=== PATIENT | male | born 1960 | race Caucasian/White ===

== ENCOUNTER 2025-04-14 07:46 | Inpatient (IN) | payer MEDICARE, SELFPAY ==
[2025-04-14] VITALS (10 sets, daily range): BP systolic 100–149; BP diastolic 53–90; PULSE 66–89; RESP 12–22; TEMP 36.4–37; O2SAT 92–98
--- NOTE | ~2025-04-14 | US_ITS ---
EXAMINATION: US renal BI DATE: 04/14/2025 16:11 INDICATION: Acute renal insufficiency TECHNIQUE: Multiple ultrasound grayscale images of the kidneys were obtained. COMPARISON: None. FINDINGS: The right kidney measures 13.3 x 5.8 x 6.1 cm. The left kidney measures 12.3 x 6.8 x 6.0 cm. The kidn eys demonstrate normal echogenicity. 2.2 cm anechoic cyst at the lower pole of the left kidney. There is no hydronephrosis in either kidney. No stones identified. The bladder is decompressed with a Fol ey catheter in place which limits evaluation. IMPRESSION: 1. 2.2 cm left renal cyst. Otherwise normal kidneys without hydronephrosis. Reviewed, dictated and finalized at location A.
--- NOTE | ~2025-04-14 | XR_ITS ---
EXAM/PROCEDURE: XR chest 2V - 04/14/2025 8:40 CDT HISTORY: 64 years old Male with weak, DIZZINESS, HX OF COPD AND HIGH BLOOD PRESSURE TECHNIQUE: Two view(s) of the chest. COMPARISON: None available. FINDINGS: LUNGS/ PLEURA: No pneumothorax or pleural effusion. Bibasilar linear opacities may represent atelecta sis and/or scarring. Superimposed infection cannot be excluded. HEART/ MEDIASTINUM: Heart appears normal in size. BONES: No acute osseous abnormality. OTHER: Visualized upper abdomen is unremarkable. IMPRESSION: Bibasilar linear opacities may represent atelectasis and/or scarring. Superimposed infection cannot b e excluded. Clinical correlation is recommended and short-term follow-up chest radiograph is recommen ded after appropriate medical therapy. Reviewed, dictated and finalized at location A. IMPRESSION: Bibasilar linear opacities may represent atelectasis and/or scarring. Superimpo sed infection cannot be excluded. Clinical correlation is recommended and short -term follow-up chest radiograph is recommended after appropriate medical thera py.
--- NOTE | 2025-04-14 07:51 | ECG_ITS ---
Test Date: 2025-04-14 08:00:17 Measurements Intervals [place] Rate: 70 P: 46 [place]: 181 QRS: 45 QRSD: 109 T: 43 QT: 369 QTc: 400 Interpretive Statements SINUS RHYTHM DELAYED PRECORDIAL R/S TRANSITION BASELINE ARTIFACT- I, III, AVR, AVL, AVF, V4 BORDERLINE ECG No previous ECG available for comparison Electronically Signed On 04-14-2025 08:05:04 CDT by Chilango Redd D.O.
--- NOTE | 2025-04-14 07:58 | PC.NURSE ---
voided 100mls and reported he could not void anymore, post void residual >1626
[2025-04-14 08:02] LABS: Basophils Absolute Auto 0.1 K/mm3 (0.0-0.1); Basophils Percent Auto 0.6 % (0.2-1.2); Eosinophils Absolute Auto 0.3 K/mm3 (0-0.3); Eosinophils Percent Auto 3.8 % (0-4.4); Hematocrit 41.2 % (42.0-52.0); Hemoglobin 12.6 g/dL (14.0-18.0); Immature Granulocyte Absolute 0.05 K/mm3 (0.00-0.031); Immature Granulocyte Percent A 0.6 % (0-0.5); Lymphocytes Absolute Auto 1.42 K/mm3 (0.9-3.2); Lymphocytes Percent Auto 16.5 % (18.3-44.2); Mean Corpuscular HGB Conc 30.6 g/dl (32-36); Mean Corpuscular Volume 81.9 fl (80-100); Mean Platelet Volume 9.5 fl (7.4-10.4); Monocytes Percent Auto 11.4 % (2.6-8.5); Neutrophils Absolute Auto 5.8 K/mm3 (1.3-6.7); Neutrophils Percent Auto 67.1 % (45.5-73.1); Platelet Count Result 265 k/mm3 (150-375); Red Blood Count 5.03 M/mm3 (4.6-6.20); Red Cell Distribution Width 15.4 % (11.5-14.5); White Blood Count 8.6 K/mm3 (4.5-10.0)
[2025-04-14 08:16] LABS: Alanine Aminotransferase 32 U/L (6-50); Albumin Level 4.2 g/dL (3.5-5.1); Alkaline Phosphatase 47 U/L (38-126); Anion Gap 13 mmol/L (4-12); Aspartate Amino Transferase 35 U/L (17-59); Bilirubin,Total 0.3 mg/dL (0.2-1.3); Blood Urea Nitrogen 43 mg/dL (9-20); Calcium 9.9 mg/dL (8.4-10.2); Carbon Dioxide 25 mmol/L (22-30); Chloride 98 mmol/L (98-107); Estimated CRCL calculation 56 ml/min; Estimated Glomerular Filt Rate 43; Glucose 190 mg/dL (65-110); Potassium 4.4 mmol/L (3.4-5.0); Sodium 136 mmol/L (137-145); Total Protein 8.3 g/dL (6.3-8.2)
[2025-04-14 08:17] LABS: Lactic Acid Reflex 1.7 mmol/L (0.7-2.0)
[2025-04-14 08:20] LABS: Add Urine Microscopic? YES; Appearance Urine Turbid (Clear); Bacteria Urine None Seen /hpf; Bilirubin Urine Negative (Negative); Blood Urine 2+ (Negative); Color Urine Yellow (Yellow); Glucose Urine UA 3+ mg/dL (Negative); Ketones Urine Negative (Negative); Leukocyte Esterase Ur 3+ LEU/UL (Negative); Need Manual Microscopic Reviewed; Nitrate Urine Negative (Negative); Non Pathogenic Casts 0-2; Protein Urine Trace mg/dL (Negative); RBC Urine 21-50 /hpf (0-2); Squamous Epithelial Cell Urine Occasional /hpf (Few); Urobilinogen Urine 0.2 mg/dL (<2.0); WBC Clumps Urine Present /HPF; WBC Urine >100 /hpf (0-3); pH Urine 5.5 (5.0-9.0)
[2025-04-14] MEDS: MECLIZINE HCL 25 MG TABLET PO (10:13)
[2025-04-14] MEDS: SODIUM CHLORIDE 0.9% IV 1,000 ML 999 ML IV CONT (10:13)
--- NOTE | 2025-04-14 11:18 | ED.WEAKNESS ---
HPI - Weakness General Chief complaint: Weakness Stated complaint: gen. weak, dizzy Time Seen by Provider: 04/14/25 07:46 History of Present Illness HPI Narrative: Patient is a 64-year-old male who presents ER dizziness weakness. Unable get a bed today due to dizziness. Reports he has been camping outside over last 2 days. No fevers chills or sweats. No chest pain or chest pressure. No weakness in arm or leg. Patient was unable to urinate here and then was found have 1600 mL of urine in his bladder on bladder scan. Related Data Home Medications ?Medication ?Instructions ?Recorded ?Confirmed ?Last Taken ?Type albuterol sulfate 90 mcg/actuation 2 puff inhalation Q4H PRN 04/14/25 04/14/25 Unknown History aerosol inhaler shortness of breath or wheezing cholecalciferol (vitamin D3) 50 2,000 unit PO DAILY 04/14/25 04/14/25 Unknown History mcg (2,000 unit) tablet (Vitamin D3) dapagliflozin propanediol 10 mg 10 mg PO DAILY 04/14/25 04/14/25 Unknown History tablet (Farxiga) diclofenac sodium 75 mg 75 mg PO Q12H 04/14/25 04/14/25 Unknown History tablet,delayed release empagliflozin 25 mg tablet 25 mg PO DAILY 04/14/25 04/14/25 Unknown History (Jardiance) fenofibrate micronized 134 mg 134 mg PO DAILY 04/14/25 04/14/25 Unknown History capsule glipizide 5 mg tablet, extended 5 mg PO DAILY 04/14/25 04/14/25 Unknown History release 24 hr hydrochlorothiazide 25 mg tablet 25 mg PO DAILY 04/14/25 04/14/25 Unknown History insulin degludec 200 unit/mL (3 200 unit subcut DAILY 04/14/25 04/14/25 Unknown History mL) subcutaneous pen (Tresiba FlexTouch U-200 insulin) insulin lispro 100 unit/mL 70 unit subcut 1700 04/14/25 04/14/25 Unknown History subcutaneous pen insulin lispro 100 unit/mL 65 unit subcut 0800,1200 04/14/25 04/14/25 Unknown History subcutaneous pen (Humalog KwikPen (U-100) Insulin) lisinopril 40 mg tablet 40 mg PO DAILY 04/14/25 04/14/25 Unknown History magnesium 250 mg tablet 250 mg PO DAILY 04/14/25 04/14/25 Unknown History mometasone-formoterol HFA 100 2 puff inhalation Q12H 04/14/25 04/14/25 Unknown History mcg-5 mcg/actuation aerosol inhaler (Dulera) omega-3 acid ethyl esters 1 gram 2 cap PO BID 04/14/25 04/14/25 Unknown History capsule ropinirole 1 mg tablet 1 mg PO DAILY 04/14/25 04/14/25 Unknown History ropinirole 2 mg tablet 2 mg PO HS 04/14/25 04/14/25 Unknown History semaglutide 0.25 mg or 0.5 mg (2 0.5 mg subcut WEEKLY 04/14/25 04/14/25 Unknown History mg/3 mL) subcutaneous pen injector (Ozempic) simvastatin 40 mg tablet 40 mg PO DAILY 04/14/25 04/14/25 Unknown History Allergies Allergy/AdvReac Type Severity Reaction Status Date / Time No Known Allergies Allergy Verified 04/14/25 07:53 Review of Systems Review of Systems: All systems reviewed & are unremarkable except as noted in HPI and below Constitutional: Constitutional: Reports no additional constitutional complaints ENT: Reports system reviewed and no additional complaints, except as documented Cardiovascular: Cardiovascular: Reports no additional cardiovascular complaints Respiratory: Respiratory: Reports no additional respiratory complaints Gastrointestinal: Gastrointestinal: Reports no additional gastrointestinal complaints Genitourinary: Genitourinary: Reports no additional male genitourinary complaints [facility] Past Medical History Medical History (Updated 04/14/25 @ 19:07 by Magdiel Harrington MD) Sleep apnea COPD (chronic obstructive pulmonary disease) Hypertension Diabetes Social History Social History Smoking packs per day: 2 Smoking cigarettes per day: 40.0 Years smoked: 20 Smoking pack-years: 40.00 Smoking status: Former smoker Alcohol intake: never Substance use: never Do You Feel Safe in your Home?: Yes Lack of Transportation: No Lack of Food: Never True Current Housing: I Have Housing Concerned About Future Housing: No Difficulty Paying Gas/Electric Bills: No Difficulty Paying for Meds: No Currently Unemployed: No Education: High School Diploma/GED Difficulty w/ Childcare or Family Care: No Spiritual care concerns: No Exam Narrative: GENERAL: Well-appearing, well-nourished, and in no acute distress. HEAD: Normocephalic, atraumatic. EYES: PERRL and EOMI. ENT: Mucous membranes moist. CHEST: Clear to auscultation. No respiratory distress. HEART: Regular rate and rhythm. Normal peripheral pulses. ABDOMEN: Soft, nontender, nondistended. EXTREMITIES: Normal range of motion. No edema. SKIN: Warm, dry, no rash. NEURO: Alert and oriented x3. PSYCH: Normal mood and affect. Course Course Emergency Course: Patient still dizzy with fluids. Admit to hospitalist service. IV antibiotics for UTI. Meclizine for dizziness. Vital Signs Vital signs: Vital Signs Temperature 97.6 F 04/14/25 07:42 Pulse Rate 79 04/14/25 07:42 Respiratory Rate 17 04/14/25 07:42 Blood Pressure 149/90 H 04/14/25 07:42 Pulse Oximetry 95 04/14/25 07:42 Oxygen Delivery Room Air 04/14/25 07:42 Temperature 97.7 F 04/14/25 13:55 Pulse Rate 78 04/14/25 13:55 Respiratory Rate 20 04/14/25 13:55 Blood Pressure 111/65 04/14/25 13:55 Pulse Oximetry 94 04/14/25 13:55 Oxygen Delivery Room Air 04/14/25 07:42 MDM - Weakness Lab Data 04/14/25 07:55 04/14/25 07:55 Labs: Lab Results 04/14/25 Range/Units 07:55 WBC 8.6 (4.5-10.0) K/mm3 RBC 5.03 (4.6-6.20) M/mm3 Hgb 12.6 L (14.0-18.0) g/dL Hct 41.2 L (42.0-52.0) % MCV 81.9 (80-100) fl MCH 25.0 L (26-34) pg MCHC 30.6 L (32-36) g/dl RDW 15.4 H (11.5-14.5) % Plt Count 265 (150-375) k/mm3 MPV 9.5 (7.4-10.4) fl Immature Gran % (Auto) 0.6 H (0-0.5) % Neut % (Auto) 67.1 (45.5-73.1) % Lymph % (Auto) 16.5 L (18.3-44.2) % Sullivan % (Auto) 11.4 H (2.6-8.5) % Eos % (Auto) 3.8 (0-4.4) % Baso % (Auto) 0.6 (0.2-1.2) % Lymph # (Auto) 1.42 (0.9-3.2) K/mm3 Sullivan # (Auto) 1.0 H (0.1-0.6) K/mm3 Eos # (Auto) 0.3 (0-0.3) K/mm3 Baso # (Auto) 0.1 (0.0-0.1) K/mm3 Abs Immat Gran (auto) 0.05 H (0.00-0.031) K/mm3 Absolute Neuts (auto) 5.8 (1.3-6.7) K/mm3 Absolute Nucleated RBC 0.000 (0.0-0.012) K/mm3 Nucleated RBC % 0.0 (0.0-0.2) % Sodium 136 L (137-145) mmol/L Potassium 4.4 (3.4-5.0) mmol/L Chloride 98 (98-107) mmol/L Carbon Dioxide 25 (22-30) mmol/L Anion Gap 13 H (4-12) mmol/L BUN 43 H (9-20) mg/dL Creatinine 1.63 H (0.7-1.3) mg/dL Estim Creat Clear Calc 56 ml/min Estimated GFR 43 L (59 - ) Glucose 190 H (65-110) mg/dL Lactic Acid 1.7 (0.7-2.0) mmol/L Calcium 9.9 (8.4-10.2) mg/dL Total Bilirubin 0.3 (0.2-1.3) mg/dL AST 35 (17-59) U/L ALT 32 (6-50) U/L Alkaline Phosphatase 47 (38-126) U/L Total Creatine Kinase 500 H (55-170) U/L Total Protein 8.3 H (6.3-8.2) g/dL Albumin 4.2 (3.5-5.1) g/dL Urine Color Yellow (Yellow) Urine Appearance Turbid H (Clear) Urine pH 5.5 (5.0-9.0) Ur Specific [place] 1.020 (1.001-1.035) Urine Protein Trace (Negative) mg/dL Urine Glucose (UA) 3+ H (Negative) mg/dL Urine Ketones Negative (Negative) mg/dL Ur Blood (Man) 2+ H (Negative) Urine Nitrate Negative (Negative) Urine Bilirubin Negative (Negative) Urine Urobilinogen 0.2 (<2.0) mg/dL Add Ur Microanalysis Reviewed Leukocyte Esterase Rfl 3+ H (Negative) CATHIE/UL Urine RBC 21-50 H (0-2) /hpf Urine WBC >100 H (0-3) /hpf Urine WBC Clumps Present H (None) /HPF Ur Squamous Epith Cells Occasional (Few) /hpf Urine Bacteria None seen /hpf Urine Casts 0-2 Discharge Plan Discharge Clinical Impression: Dizziness UTI (urinary tract infection) Qualifiers: Urinary tract infection type: acute cystitis Hematuria presence: without hematuria Qualified Code(s): N30.00 - Acute cystitis without hematuria Patient Disposition: Still a Patient Condition: Stable
[2025-04-14] MEDS: SODIUM CHLORIDE 0.9% IV 1,000 ML 125 ML IV CONT (11:23)
--- NOTE | 2025-04-14 12:20 | PM.IMHP ---
H&P: HPI History of Present Illness Date/Time: 04/14/25 12:20 Chief Complaint: Weakness, Dizziness Narrative: 64 y/o M with PMH of COPD, sleep apnea, hypertension (not on medications?), and diabetes presents here with generalized weakness and dizziness. The patient presents here from home via EMS on 04/14 for further evaluation of generalized weakness and dizziness. He reports onset this morning when he woke up to go use the restroom. He reports due to the generalized weakness he was unable to stand this morning to get to the bathroom. He denies accompanying chest pain, shortness of breath, cough, palpitations, fatigue, dysuria,fever, chills, body aches. Does report urinary frequency - but reports he drinks a lot of fluids. Patient was found to have acute urinary retention during his evaluation in the Emergency Department. Patient had molina placed, dizziness improved but the weakness is still present. He denies focal weakness, focal numbness, changes in vision, or changes in speech. Patient reports he just got back from camping - denies any tick bites but was out in the heat a lot. Initial VS at presentation: 97.6? F, HR 79, RR 17, 149/90, and 95% on RA. ED workup showed: No leukocytosis, hemoglobin 12.6, sodium 136, creatinine 1.63 and GFR 43 (no previous available for comparison), glucose 190, and UA suspicious for UTI. CXR showed bibasilar linear opacities which may represent atelectasis and/or scarring, superimposed infection cannot be excluded. EKG showed sinus rhythm, rate 70, delayed precordial R/S transition, no previous available for comparison. Review of Systems Review of Systems: All systems reviewed & are unremarkable except as noted in HPI and below [facility] Past Medical History Medical History (Updated 04/14/25 @ 14:57 by Traci Kennedy APRN) Sleep apnea COPD (chronic obstructive pulmonary disease) Hypertension Diabetes Social History Social History Smoking packs per day: 2 Smoking cigarettes per day: 40.0 Years smoked: 20 Smoking pack-years: 40.00 Smoking status: Former smoker Alcohol intake: never Substance use: never Do You Feel Safe in your Home?: Yes Lack of Transportation: No Lack of Food: Never True Current Housing: I Have Housing Concerned About Future Housing: No Difficulty Paying Gas/Electric Bills: No Difficulty Paying for Meds: No Currently Unemployed: No Education: High School Diploma/GED Difficulty w/ Childcare or Family Care: No Spiritual care concerns: No Meds Home Medications and Allergies Home Medications ?Medication ?Instructions ?Recorded ?Confirmed ?Type insulin lispro 100 unit/mL 70 unit subcut 1700 04/14/25 04/14/25 History subcutaneous pen insulin lispro 100 unit/mL 65 unit subcut 0800,1200 04/14/25 04/14/25 History subcutaneous pen (Humalog KwikPen (U-100) Insulin) Allergies Allergy/AdvReac Type Severity Reaction Status Date / Time No Known Allergies Allergy Verified 04/14/25 07:53 Vital Signs Vital Signs - 24 hr 04/14/25 07:42 04/14/25 08:01 04/14/25 08:02 Temperature 97.6 F Pulse Rate 79 76 Respiratory Rate 17 Blood Pressure 149/90 H 119/72 Pulse Oximetry 95 Oxygen Delivery Room Air 04/14/25 08:03 04/14/25 10:13 04/14/25 11:18 Temperature Pulse Rate 75 68 66 Respiratory Rate 12 15 Blood Pressure 129/68 100/62 114/53 L Pulse Oximetry 95 96 Oxygen Delivery Exam Const: General: comfortable and no acute distress Other: , male, nontoxic appearance HENMT: Face/Nose/Sinus: Normal nares present Mouth: Yes moist mucous membranes Eyes: General: appearance normal, both eyes and all related structures Sclera: sclerae normal Pupils: Equal, round and reactive pupils present EOM: EOMs intact bilaterally Resp: Effort & Inspection: normal respiratory effort Auscultation: clear to auscultation bilaterally Cardio: Rate: regular rate Rhythm: regular rhythm Other: No heart GI: Other: Abdomen rounded, tight but soft, nontender. Normoactive bowel sounds in all quadrants. Urinary Catheter: Urinary Catheter: patent and draining Skin: General skin exam: normal color and no rashes or lesions noted Wounds: no wounds Neuro: Speech: normal speech Motor exam (neuro): 5/5 motor strength present throughout Sensory Exam: normal sensation Other: A&O x4 Extrem: General: normal to inspection Psych: Mental Status: mental status grossly normal Affect: normal affect Other: Good insight and judgment, pleasant H&P: Results Labs Labs: Short CBC 04/14/25 Range/Units 07:55 WBC 8.6 (4.5-10.0) K/mm3 Hgb 12.6 L (14.0-18.0) g/dL Hct 41.2 L (42.0-52.0) % Plt Count 265 (150-375) k/mm3 BMP 04/14/25 07:55 Sodium 136 L Potassium 4.4 Chloride 98 Carbon Dioxide 25 BUN 43 H Creatinine 1.63 H Glucose 190 H Calcium 9.9 Liver Function 04/14/25 Range/Units 07:55 Total Bilirubin 0.3 (0.2-1.3) mg/dL AST 35 (17-59) U/L ALT 32 (6-50) U/L Alkaline Phosphatase 47 (38-126) U/L Albumin 4.2 (3.5-5.1) g/dL Urine 04/14/25 Range/Units 07:55 Urine Color Yellow (Yellow) Urine Appearance Turbid H (Clear) Urine pH 5.5 (5.0-9.0) Ur Specific [place] 1.020 (1.001-1.035) Urine Protein Trace (Negative) mg/dL Urine Glucose (UA) 3+ H (Negative) mg/dL Assessment and Plan Assessment and plan (1) MARIA D (acute kidney injury): Code(s): N17.9 - Acute kidney failure, unspecified Status: Acute Assessment and Plan: - creatinine 1.63, BUN 43, GFR 43. No previous available. - check renal ultrasound - check CK, urine sodium, protein/creatinine, urea - IV fluids: 1L bolus -> 125 mL/hour - monitor I&Os - trend renal function - trend electrolytes, correct as needed Unclear if patient's baseline or acute kidney injury as there are no previous lab work available for comparison. possible UTI component, see below. Urinary retention noted in the ED > post-void residual 1626, likely contributing. Will rehydrate over the next 24 hours, start antibiotics, and check basic workup. If no improvement or worsening renal function, consider Nephrology consultation. (2) Urinary retention: Code(s): R33.9 - Retention of urine, unspecified Status: Acute Assessment and Plan: - patient able to void 100 mL in the ED, postvoid residual checked and showed greater than 1626 - Molina subsequently placed with 1L out - start Flomax (3) UTI (urinary tract infection): Qualifiers: Hematuria presence: without hematuria Urinary tract infection type: acute cystitis Qualified Code(s): N30.00 - Acute cystitis without hematuria Code(s): N39.0 - Urinary tract infection, site not specified Status: Acute Assessment and Plan: - UA: Turbid, 3+ glucose, 2+ blood, 3+ leuks, 21-50 RBC, greater than 100 WBC, WBC clumps present, occasional epithelial cells, no bacteria - UC pending - previous micro reviewed, none available - started on Ceftriaxone on 04/14 (4) Diabetes: Qualifiers: Diabetes mellitus complication status: without complication Diabetes mellitus skilled nursing insulin use: without skilled nursing use Diabetes mellitus type: type 2 Qualified Code(s): E11.9 - Type 2 diabetes mellitus without complications Code(s): E11.9 - Type 2 diabetes mellitus without complications Status: Chronic Assessment and Plan: - hypoglycemia protocol - POC blood glucose ACHS - home medication: Continue lispro 65 units subQ at 8/12, lispro 70 units at 5 - correct regimen ordered - high dose TIDWM, based off BMI - A1C ordered, no previous on file Plan Diet: Diabetic GI Prophylaxis: Not currently indicated DVT Prophylaxis: SCDs IV fluids: 1 L bolus -> 125 mL/hour Lines/Tubes: Peripheral IV, Molina Code Status: Full code Quality VTE Prophylaxis VTE prophylaxis: mechanical ordered Hospitalist [facility] Advance Care Plan I have confirmed that the patient's Advanced Care Plan is present, code status is documented, or surrogate decision maker is listed in patient medical record.: Yes Medication Reconciliation I have utilized all available resources to obtain, update and review the patients current medications (includes all prescriptions, OTC, herbals, cannabis, and nutritional supplements).: Yes
--- NOTE | 2025-04-14 13:09 | ADMGEN ---
This patient, Len Botello, was admitted to 3 [facility] Surg Room 330-02. Patient/family oriented to hospital policies and general routines including ID bracelet, bed and alarms, visiting hours, pain management, procedures, bathroom and other care routines, personal items, smoking policy, room service/diet, and visiting hours. Information on how to activate the Rapid Response Team has been discussed. Patient/Family are encouraged to report perceived risks to care and to ask questions if they do not understand what they are told or what they should do.
[2025-04-14 13:53] LABS: Creatine Kinase 500 U/L (55-170)
[2025-04-14] MEDS: TAMSULOSIN HCL 0.4 MG CAPSULE PO (14:22)
[2025-04-14 15:25] LABS: Creatinine Urine 41.2 mg/dL; Sodium Urine Random 99 meq/L; Total Protein Urine Random 22 mg/dL; Ur Ttl Prot Creatinine Ratio 0.53 mg/mg (0-0.20); Urea Random Urine 481 MG/DL
[2025-04-14 17:04] LABS: Glucose Point of Care 121 mg/dl (65-105)
[2025-04-14 17:06] LABS: Glucose Point of Care 120 mg/dl (65-105)
--- NOTE | 2025-04-14 17:14 | PC.NURSE ---
Patient refused to take 70 units of novolog stating I only take that if my sugar is over 160. Notified the provider Traci and she said okay to hold.
[2025-04-14 20:43] LABS: Glucose Point of Care 186 mg/dl (65-105)
[2025-04-14] MEDS: rOPINIRole HCL 1 MG TABLET 2 MG PO (23:05)
[2025-04-15] VITALS (8 sets, daily range): BP systolic 100–116; BP diastolic 57–66; PULSE 75–81; RESP 18–20; TEMP 36.2–36.6; O2SAT 93–94
[2025-04-15] MEDS: SODIUM CHLORIDE 0.9% IV 1,000 ML 125 ML IV CONT ×2 (01:42→10:33)
[2025-04-15 07:04] LABS: Basophils Percent Auto 0.4 % (0.2-1.2); Eosinophils Absolute Auto 0.2 K/mm3 (0-0.3); Eosinophils Percent Auto 2.7 % (0-4.4); Hematocrit 37.8 % (42.0-52.0); Hemoglobin 11.5 g/dL (14.0-18.0); Immature Granulocyte Absolute 0.03 K/mm3 (0.00-0.031); Immature Granulocyte Percent A 0.3 % (0-0.5); Lymphocytes Absolute Auto 1.59 K/mm3 (0.9-3.2); Lymphocytes Percent Auto 17.7 % (18.3-44.2); Mean Corpuscular HGB Conc 30.4 g/dl (32-36); Mean Corpuscular Volume 82.2 fl (80-100); Mean Platelet Volume 9.6 fl (7.4-10.4); Monocytes Absolute Auto 0.9 K/mm3 (0.1-0.6); Monocytes Percent Auto 9.9 % (2.6-8.5); Neutrophils Absolute Auto 6.2 K/mm3 (1.3-6.7); Platelet Count Result 265 k/mm3 (150-375); Red Cell Distribution Width 15.6 % (11.5-14.5)
[2025-04-15 07:21] LABS: Alanine Aminotransferase 29 U/L (6-50); Albumin Level 3.8 g/dL (3.5-5.1); Alkaline Phosphatase 41 U/L (38-126); Anion Gap 10 mmol/L (4-12); Aspartate Amino Transferase 33 U/L (17-59); Bilirubin,Total 0.3 mg/dL (0.2-1.3); Blood Urea Nitrogen 32 mg/dL (9-20); Calcium 9.5 mg/dL (8.4-10.2); Carbon Dioxide 21 mmol/L (22-30); Chloride 105 mmol/L (98-107); Estimated CRCL calculation 71 ml/min; Estimated Glomerular Filt Rate 57; Glucose 166 mg/dL (65-110); Potassium 4.4 mmol/L (3.4-5.0); Sodium 136 mmol/L (137-145); Total Protein 7.4 g/dL (6.3-8.2)
[2025-04-15 07:31] LABS: Hemoglobin A1C 8.5 % (<5.7)
[2025-04-15 07:38] LABS: Glucose Point of Care 169 mg/dl (65-105)
[2025-04-15] MEDS: FLUTICASONE/SALMETEROL 115-21 MCG INHALER 1 PUFF 2 PUFF INHALATION ×2 (08:14→21:12)
[2025-04-15] MEDS: CHOLECALCIFEROL (VITAMIN D3) 125 MCG (5,000 UNITS) TABLET PO (08:39)
[2025-04-15] MEDS: lisinopriL 20 MG TABLET 40 MG PO (08:40)
[2025-04-15] MEDS: EMPAGLIFLOZIN 25 MG TABLET PO (08:40)
[2025-04-15] MEDS: FENOFIBRATE NANOCRYSTALLIZED 145 MG TABLET PO (08:40)
[2025-04-15] MEDS: OMEGA 3 POLYUNSAT FATTY ACIDS 1 GM CAP PO ×2 (08:40→17:13)
[2025-04-15] MEDS: rOPINIRole HCL 1 MG TABLET PO (08:40)
[2025-04-15] MEDS: hydroCHLOROthiazide 25 MG TABLET PO (08:40)
[2025-04-15] MEDS: MAGNESIUM OXIDE 200 MG TABLET PO (08:40)
[2025-04-15] MEDS: DICLOFENAC SOD 75 MG TABLET.EC PO ×2 (08:40→21:08)
[2025-04-15] MEDS: TAMSULOSIN HCL 0.4 MG CAPSULE PO (08:41)
[2025-04-15] MEDS: SIMVASTATIN 20 MG TABLET 40 MG PO (08:41)
[2025-04-15] MEDS: INSULIN ASPART (*BKC) 100 UNITS/ML 65 UNITS SUB-Q (08:46)
[2025-04-15] MEDS: glipiZIDE XL 5 MG TABCR PO (08:53)
[2025-04-15] MEDS: INSULIN GLARGINE (*BKC) 100 UNITS/ML SUB-Q ×2 (09:24→21:24)
[2025-04-15 11:55] LABS: Glucose Point of Care 88 mg/dl (65-105)
--- NOTE | 2025-04-15 14:01 | P.PNIM_ITS ---
Progress Note: A&P Assessment and Plan (1) BAUTISTA (acute kidney injury): Code(s): N17.9 - Acute kidney failure, unspecified Status: Acute Assessment and Plan: - watch BMP and Uo - creat is improved since catheter insertion and iv abx started (2) Urinary retention: Code(s): R33.9 - Retention of urine, unspecified Status: Acute Assessment and Plan: - sp molina cath - start Flomax - consult urology (3) UTI (urinary tract infection): Qualifiers: Urinary tract infection type: acute cystitis Hematuria presence: without hematuria Qualified Code(s): N30.00 - Acute cystitis without hematuria Code(s): N39.0 - Urinary tract infection, site not specified Status: Acute Assessment and Plan: - uc ordered await results - started on Ceftriaxone on 04/14 (4) Diabetes: Qualifiers: Diabetes mellitus type: type 2 Diabetes mellitus assisted insulin use: without assisted use Diabetes mellitus complication status: without complication Qualified Code(s): E11.9 - Type 2 diabetes mellitus without complications Code(s): E11.9 - Type 2 diabetes mellitus without complications Status: Chronic Assessment and Plan: - watch sugars - accuchecks, ssi Plan diet ; DM Code Status: Full code Subjective Date/time seen: 04/15/25 14:01 Interval history: 64 y/o M with PMH of COPD, sleep apnea, hypertension (not on medications?), and diabetes presents here with generalized weakness and dizziness. The patient presents here from home via EMS on 04/14 for further evaluation of generalized weakness and dizziness. He reports onset this morning when he woke up to go use the restroom. He reports due to the generalized weakness he was unable to stand this morning to get to the bathroom. He denies accompanying chest pain, shortness of breath, cough, palpitations, fatigue, dysuria,fever, chills, body aches. Does report urinary frequency - but reports he drinks a lot of fluids. Patient was found to have acute urinary retention during his evaluation in the Emergency Department. pt admitted for Bautista, urinary retention uti with history of dm sp molina cath insertion Review of Systems Review of Systems: pt feels better Exam Const: General: comfortable and no acute distress Other: , male, nontoxic appearance HENMT: Face/Nose/Sinus: Normal nares present Mouth: Yes moist mucous membranes Eyes: General: appearance normal, both eyes and all related structures Sclera: sclerae normal Pupils: Equal, round and reactive pupils present EOM: EOMs intact bilaterally Resp: Effort & Inspection: normal respiratory effort Auscultation: clear to auscultation bilaterally Cardio: Rate: regular rate Rhythm: regular rhythm Other: No heart GI: Other: Abdomen rounded, tight but soft, nontender. Normoactive bowel sounds in all quadrants. Urinary Catheter: Urinary Catheter: patent and draining Skin: General skin exam: normal color and no rashes or lesions noted Wounds: no wounds Neuro: Cranial nerves: Yes Equal, round and reactive pupils present Speech: normal speech Motor exam (neuro): 5/5 motor strength present throughout Se nsory Exam: normal sensation Other: A&O x4 Extrem: General: normal to inspection Psych: Mental Status: mental status grossly normal Affect: normal affect Other: Good insight and judgment, pleasant Objective Data Vital Signs Vital Signs: Vital Signs - 24 hr 04/14/25 21:26 04/14/25 23:00 04/15/25 02:21 Temperature 37.0 C Pulse Rate 77 81 Respiratory Rate 18 22 H 20 Blood Pressure 128/66 Pulse Oximetry 92 92 93 Oxygen Delivery Autopap CPAP 04/15/25 05:23 04/15/25 08:00 04/15/25 08:15 Temperature 36.6 C Pulse Rate 76 Respiratory Rate 20 Blood Pressure 104/60 Pulse Oximetry 93 93 Oxygen Delivery Room Air Room Air 04/15/25 08:38 Temperature Pulse Rate 77 Respiratory Rate Blood Pressure 116/66 Pulse Oximetry Oxygen Delivery Intake/Output Intake/Output: Intake & Output 04/12/25 04/13/25 04/14/25 04/15/25 23:59 23:59 23:59 23:59 Intake Total 3080 2244 Output Total 4300 4100 Balance -1221 -1007 Meds/Results Medications: Active Medications Generic Name Dose Route Start Last Admin Trade Name Freq PRN Reason Stop Dose Admin Acetaminophen 650 mg 04/14/25 11:11 Acetaminophen 325 Mg Tablet PO Q4H PRN Mild Pain (1-3) or Fever Hydrocodone Bitart/Acetaminophen 1 tab 04/14/25 11:11 Hydrocodone/Acetaminophen (*Crx) 5-325 Mg Tablet PO Q4H PRN Pain Rated 4-6 Albuterol 2 puff 04/14/25 22:23 Albuterol Sulfate (*Sp) Aerosol 1 Puff INHALATION Q4H PRN shortness of breath or wheezing Dextrose 12.5 gm 04/14/25 12:38 Dextrose 50% 25 Gm/50 Ml Syringe IV PUSH PRN PRN Hypoglycemia Protocol Diclofenac Sodium 75 mg 04/15/25 09:00 04/15/25 08:40 Diclofenac Sod 75 Mg Tablet.Ec PO 75 mg Q12HR NATASHA Administration Empagliflozin 25 mg 04/15/25 09:00 04/15/25 08:40 Empagliflozin 25 Mg Tablet PO 25 mg DAILY NATASHA Administration Fenofibrate 145 mg 04/15/25 09:00 04/15/25 08:40 Fenofibrate Nanocrystallized 145 Mg Tablet PO 145 mg QAM NATASHA Administration Fish Oil 1 gm 04/15/25 09:00 04/15/25 08:40 Bowie 3 Polyunsat Fatty Acids 1 Gm Cap PO 1 gm BID NATASHA Administration Glipizide 5 mg 04/15/25 08:00 04/15/25 08:53 Glipizide Xl 5 Mg Tabcr PO 5 mg DAILY@0800 NATASHA Administration Glucagon 1 mg 04/14/25 12:38 Glucagon For Inj 1 Mg Vial IM PRN PRN Hypoglycemia Protocol Glucose 15 gm 04/14/25 12:38 Glucose Oral Gel 15 Gm Of Glucse In 37.5 Gm Tube PO PRN PRN Hypoglycemia Protocol Hydrochlorothiazide 25 mg 04/15/25 09:00 04/15/25 08:40 Hydrochlorothiazide 25 Mg Tablet PO 25 mg DAILY NATASHA Administration Sodium Chloride 1,000 mls @ 125 mls/hr 04/14/25 11:15 04/15/25 10:33 Normal Saline Iv IV CONT 125 mls/hr .Q8H NATASHA Administration Ceftriaxone Sodium 1 gm in 50 mls @ 100 mls/hr 04/15/25 12:00 04/15/25 11:59 Rocephin 1 Gm/Ns 50 Ml IVPB 100 mls/hr Q24H NATASHA Administration Dextrose 1,000 mls @ 100 mls/hr 04/14/25 12:38 Dextrose 5% 1,000 Ml IVPB PRN PRN Hypoglycemia Protocol Insulin Aspart 4 - 8 units 04/14/25 17:00 04/15/25 11:58 Insulin Aspart (*Bkc) 100 Units/Ml SUB-Q Not Given TIDWM [facility] Protocol Insulin Aspart 35 units 04/15/25 17:00 Insulin Aspart (*Bkc) 100 Units/Ml SUB-Q 1700 [facility] Insulin Aspart 30 units 04/16/25 08:00 Insulin Aspart (*Bkc) 100 Units/Ml SUB-Q 0800,1200 [facility] Insulin Glargine 100 units 04/15/25 09:20 04/15/25 09:24 Insulin Glargine (*Bkc) 100 Units/Ml SUB-Q 100 units BID NATASHA Administration Lisinopril 40 mg 04/15/25 09:00 04/15/25 08:40 Lisinopril 20 Mg Tablet PO 40 mg DAILY NATASHA Administration Magnesium Oxide 200 mg 04/15/25 09:00 04/15/25 08:40 Magnesium Oxide 200 Mg Tablet PO 200 mg DAILY NATASHA Administration Ondansetron HCl 4 mg 04/14/25 11:11 Ondansetron Inj 4 Mg/2 Ml Vial IV PUSH Q4H PRN Nausea Ropinirole HCl 1 mg 04/15/25 09:00 04/15/25 08:40 Ropinirole Hcl 1 Mg Tablet PO 1 mg DAILY NATASHA Administration Ropinirole HCl 2 mg 04/14/25 22:35 04/14/25 23:05 Ropinirole Hcl 1 Mg Tablet PO 2 mg HS [facility] Administration Fluticasone/Salmeterol 2 puff 04/15/25 08:00 04/15/25 08:14 Fluticasone/Salmeterol 115-21 Mcg Inhaler 1 Puff INHALATION 2 puff Q12HRT NATASHA Administration Simvastatin 40 mg 04/15/25 09:00 04/15/25 08:41 Simvastatin 20 Mg Tablet PO 40 mg DAILY NATASHA Administration Tamsulosin HCl 0.4 mg 04/14/25 12:55 04/15/25 08:41 Tamsulosin Hcl 0.4 Mg Capsule PO 0.4 mg QAM [facility] Administration Vitamin D 125 mcg 04/15/25 09:00 04/15/25 08:39 Cholecalciferol (Vitamin D3) 125 Mcg (5,000 Units) Tablet PO 125 mcg DAILY [facility] Administration Radiology Results: ITS Impressions Chest X-Ray 04/14/25 08:51 IMPRESSION: Bibasilar linear opacities may represent atelectasis and/or scarring. Superimposed infection cannot be excluded. Clinical correlation is recommended and short-term follow-up chest radiograph is recommended after appropriate medical therapy. Renal Ultrasound 04/14/25 17:11 IMPRESSION: 1. 2.2 cm left renal cyst. Otherwise normal kidneys without hydronephrosis. Labs Labs: Laboratory Results - last 24 hr 04/14/25 04/14/25 04/14/25 14:31 16:35 17:00 WBC RBC Hgb Hct MCV MCH MCHC RDW Plt Count MPV Immature Gran % (Auto) Neut % (Auto) Lymph % (Auto) Desha % (Auto) Eos % (Auto) Baso % (Auto) Lymph # (Auto) Desha # (Auto) Eos # (Auto) Baso # (Auto) Abs Immat Gran (auto) Absolute Neuts (auto) Absolute Nucleated RBC Nucleated RBC % Sodium Potassium Chloride Carbon Dioxide Anion Gap BUN Creatinine Estim Creat Clear Calc Estimated GFR Glucose POC Capillary Glucose 120 H 121 H Hemoglobin A1c Calcium Total Bilirubin AST ALT Alkaline Phosphatase Total Protein Albumin U Random Total Protein 22 Ur Random Sodium 99 Ur Random Urea 481 Urine Creatinine 41.2 Protein/Creat Ratio 2 0.53 H 04/14/25 04/15/25 04/15/25 19:59 06:48 07:27 WBC 9.0 RBC 4.60 Hgb 11.5 L Hct 37.8 L MCV 82.2 MCH 25.0 L MCHC 30.4 L RDW 15.6 H Plt Count 265 MPV 9.6 Immature Gran % (Auto) 0.3 Neut % (Auto) 69.0 Lymph % (Auto) 17.7 L Desha % (Auto) 9.9 H Eos % (Auto) 2.7 Baso % (Auto) 0.4 Lymph # (Auto) 1.59 Desha # (Auto) 0.9 H Eos # (Auto) 0.2 Baso # (Auto) 0.0 Abs Immat Gran (auto) 0.03 Absolute Neuts (auto) 6.2 Absolute Nucleated RBC 0.000 Nucleated RBC % 0.0 Sodium 136 L Potassium 4.4 Chloride 105 Carbon Dioxide 21 L Anion Gap 10 BUN 32 H D Creatinine 1.26 Estim Creat Clear Calc 71 Estimated GFR 57 L Glucose 166 H POC Capillary Glucose 186 H 169 H Hemoglobin A1c 8.5 H Calcium 9.5 Total Bilirubin 0.3 AST 33 ALT 29 Alkaline Phosphatase 41 Total Protein 7.4 Albumin 3.8 U Random Total Protein Ur Random Sodium Ur Random Urea Urine Creatinine Protein/Creat Ratio 2 04/15/25 11:48 WBC RBC Hgb Hct MCV MCH MCHC RDW Plt Count MPV Immature Gran % (Auto) Neut % (Auto) Lymph % (Auto) Desha % (Auto) Eos % (Auto) Baso % (Auto) Lymph # (Auto) Desha # (Auto) Eos # (Auto) Baso # (Auto) Abs Immat Gran (auto) Absolute Neuts (auto) Absolute Nucleated RBC Nucleated RBC % Sodium Potassium Chloride Carbon Dioxide Anion Gap BUN Creatinine Estim Creat Clear Calc Estimated GFR Glucose POC Capillary Glucose 88 Hemoglobin A1c Calcium Total Bilirubin AST ALT Alkaline Phosphatase Total Protein Albumin U Random Total Protein Ur Random Sodium Ur Random Urea Urine Creatinine Protein/Creat Ratio 2
--- NOTE | 2025-04-15 17:02 | P.CONUR_ITS ---
Assessment and Plan Assessment and plan (1) UTI (urinary tract infection): Qualifiers: Urinary tract infection type: acute cystitis Hematuria presence: w ithout hematuria Qualified Code(s): N30.00 - Acute cystitis without hematuria Code(s): N39.0 - Urinary tract infection, site not specified Status: Acute (2) Urinary retention: Code(s): R33.9 - Retention of urine, unspecified Status: Acute Assessment and Plan: * Acute urinary tract infection which likely results from underlying BPH and incomplete bladder emptying. * Agree with broad spectrum antibiotics pending culture results. Additionally I will start both tamsulosin and finasteride to aggressively address BPH. * Plan a voiding trial tomorrow morning Urology Consult Note HPI Date Seen: 04/15/25 Requesting Physician: Mckay Kathleen MD Primary Care Provider: Sven Stoddard, MD Consult Narrative Narrative: Len Botello is a 64 year old male not known to have prior BPH, in hindsight reports both obstructive and irritable voiding symptoms that had not been addressed pharmacologically. He presents with acute mental status changes and dizziness from an underlying urinary tract infection. He does report urinary hesitancy with diminished stream and nocturia of 2-3 times per night. He has no prior history of recurrent urinary tract infection or hematuria. Review of Systems 2 Cardiovascular: Cardiovascular: Denies chest pain, Denies lightheadedness, Denies palpitations and Denies dyspnea Respiratory: Respiratory: Denies dyspnea Gastrointestinal: Gastrointestinal: Denies diarrhea, Denies nausea and Denies vomiting Genitourinary: Genitourinary: Denies hematuria and Denies dysuria Endocrine: Endocrine: Denies palpitations [facility] Past Medical History Medical History (Updated 04/14/25 @ 19:07 by Magdiel Harrington MD) Sleep apnea COPD (chronic obstructive pulmonary disease) Hypertension Diabetes Social History Social History Smoking packs per day: 2 Smoking cigarettes per day: 40.0 Years smoked: 20 Smoking pack-years: 40.00 Smoking status: Former smoker Alcohol intake: never Substance use: never Do You Feel Safe in your Home?: Yes Lack of Transportation: No Lack of Food: Never True Current Housing: I Have Housing Concerned About Future Housing: No Difficulty Paying Gas/Electric Bills: No Difficulty Paying for Meds: No Currently Unemployed: No Education: High School Diploma/GED Difficulty w/ Childcare or Family Care: No Spiritual care concerns: No Meds Home Medications and Allergies Home Medications ?Medication ?Instructions ?Recorded ?Confirmed ?Type albuterol sulfate 90 mcg/actuation 2 puff inhalation Q4H PRN 04/14/25 04/14/25 History aerosol inhaler shortness of breath or wheezing cholecalciferol (vitamin D3) 50 2,000 unit PO DAILY 04/14/25 04/14/25 History mcg (2,000 unit) tablet (Vitamin D3) dapagliflozin propanediol 10 mg 10 mg PO DAILY 04/14/25 04/14/25 History tablet (Farxiga) diclofenac sodium 75 mg 75 mg PO Q12H 04/14/25 04/14/25 History tablet,delayed release empagliflozin 25 mg tablet 25 mg PO DAILY 04/14/25 04/14/25 History (Jardiance) fenofibrate micronized 134 mg 134 mg PO DAILY 04/14/25 04/14/25 History capsule glipizide 5 mg tablet, extended 5 mg PO DAILY 04/14/25 04/14/25 History release 24 hr hydrochlorothiazide 25 mg tablet 25 mg PO DAILY 04/14/25 04/14/25 History insulin degludec 200 unit/mL (3 200 unit subcut DAILY 04/14/25 04/14/25 History mL) subcutaneous pen (Tresiba FlexTouch U-200 insulin) insulin lispro 100 unit/mL 70 unit subcut 1700 04/14/25 04/14/25 History subcutaneous pen insulin lispro 100 unit/mL 65 unit subcut 0800,1200 04/14/25 04/14/25 History subcutaneous pen (Humalog KwikPen (U-100) Insulin) lisinopril 40 mg tablet 40 mg PO DAILY 04/14/25 04/14/25 History magnesium 250 mg tablet 250 mg PO DAILY 04/14/25 04/14/25 History mometasone-formoterol HFA 100 2 puff inhalation Q12H 04/14/25 04/14/25 History mcg-5 mcg/actuation aerosol inhaler (Dulera) omega-3 acid ethyl esters 1 gram 2 cap PO BID 04/14/25 04/14/25 History capsule ropinirole 1 mg tablet 1 mg PO DAILY 04/14/25 04/14/25 History ropinirole 2 mg tablet 2 mg PO HS 04/14/25 04/14/25 History semaglutide 0.25 mg or 0.5 mg (2 0.5 mg subcut WEEKLY 04/14/25 04/14/25 History mg/3 mL) subcutaneous pen injector (Ozempic) simvastatin 40 mg tablet 40 mg PO DAILY 04/14/25 04/14/25 History Allergies Allergy/AdvReac Type Severity Reaction Status Date / Time No Known Allergies Allergy Verified 04/14/25 07:53 Vital Signs Vital Signs - 24 hr 04/14/25 21:26 04/14/25 23:00 04/15/25 02:21 Temperature 98.6 F Pulse Rate 77 81 Respiratory Rate 18 22 H 20 Blood Pressure 128/66 Pulse Oximetry 92 92 93 Oxygen Delivery Autopap CPAP 04/15/25 05:23 04/15/25 08:00 04/15/25 08:15 Temperature 97.8 F Pulse Rate 76 Respiratory Rate 20 Blood Pressure 104/60 Pulse Oximetry 93 93 Oxygen Delivery Room Air Room Air 04/15/25 08:38 04/15/25 14:00 Temperature 97.3 F L Pulse Rate 77 75 Respiratory Rate 20 Blood Pressure 116/66 112/58 L Pulse Oximetry 94 Oxygen Delivery Exam 2 Const: General: no acute distress Resp: Effort & Inspection: normal respiratory effort GI: Inspection: non-distended GI Palp: No abdominal tenderness and No Guarding due to palpation present (GI) Auscultation: normal bowel sounds Results Labs 04/15/25 06:48 04/15/25 06:48 Labs: Short CBC 04/15/25 Range/Units 06:48 WBC 9.0 (4.5-10.0) K/mm3 Hgb 11.5 L (14.0-18.0) g/dL Hct 37.8 L (42.0-52.0) % Plt Count 265 (150-375) k/mm3 BMP 04/15/25 06:48 Sodium 136 L Potassium 4.4 Chloride 105 Carbon Dioxide 21 L BUN 32 H D Creatinine 1.26 Glucose 166 H Calcium 9.5 Liver Function 04/15/25 Range/Units 06:48 Total Bilirubin 0.3 (0.2-1.3) mg/dL AST 33 (17-59) U/L ALT 29 (6-50) U/L Alkaline Phosphatase 41 (38-126) U/L Albumin 3.8 (3.5-5.1) g/dL
[2025-04-15 17:04] LABS: Glucose Point of Care 124 mg/dl (65-105)
[2025-04-15 20:32] LABS: Glucose Point of Care 122 mg/dl (65-105)
[2025-04-15] MEDS: rOPINIRole HCL 1 MG TABLET 2 MG PO (21:08)
--- NOTE | 2025-04-15 21:36 | PC.NURSE ---
Pt's blood glucose was 122 at 2011. He is scheduled to have 100 units of lantus at 2100. I called the l protection specialist provider Kavita Jain and told her the pt's blood glucose and the order for 100 units of lantus. Swetha said to still give the 100 units of lantus and to give the pt a snack with it. I gave the lantus along with roderick martinez.
[2025-04-15] MEDS: SODIUM CHLORIDE 0.9% IV 1,000 ML 70 ML IV CONT (23:33)
[2025-04-16 00:30] LABS: Glucose Point of Care 127 mg/dl (65-105)
[2025-04-16 02:50] VITALS: PULSE 65; RESP 20; O2SAT 94
[2025-04-16 05:55] VITALS: BP 105/60; PULSE 62; RESP 20; TEMP 36.3; O2SAT 94
--- NOTE | 2025-04-16 07:24 | P.PNUR_ITS ---
Progress Note: A&P Assessment and Plan (1) Urinary retention: Code(s): R33.9 - Retention of urine, unspecified Status: Acute (2) UTI (urinary tract infection): Qualifiers: Urinary tract infection type: acute cystitis Hematuria presence: without hematuria Qualified Code(s): N30.00 - Acute cystitis without hematuria Code(s): N39.0 - Urinary tract infection, site not specified Status: Acute Assessment and Plan: * Catheter out for voiding trial today * Plan to discharge on both finasteride and tamsulosin with follow-up in 2-3 weeks * Discharge any time from our standpoint once cultures complete Subjective Subjective Date/Time Seen: 04/16/25 07:24 Interval history: Comfortable, no complaints Review of Systems Review of Systems: All systems reviewed & are unremarkable except as noted in HPI and below Exam Const: General: no acute distress Resp: Effort & Inspection: normal respiratory effort GI: Inspection: non-distended GI Palp: No abdominal tenderness and No Guarding due to palpation present (GI) Auscultation: normal bowel sounds Urinary Catheter: Urinary Catheter: patent and draining and urine clear Objective Data Vital Signs Vital Signs: Vital Signs - 24 hr 04/15/25 08:00 04/15/25 08:15 04/15/25 08:38 Temperature Pulse Rate 77 Respiratory Rate Blood Pressure 116/66 Pulse Oximetry 93 Oxygen Delivery Room Air Room Air 04/15/25 14:00 04/15/25 21:08 04/15/25 21:14 Temperature 97.3 F L 97.2 F L Pulse Rate 75 81 Respiratory Rate 20 20 Blood Pressure 112/58 L 100/57 L Pulse Oximetry 94 94 94 Oxygen Delivery Room Air 04/15/25 22:50 04/16/25 02:50 04/16/25 05:55 Temperature 97.4 F L Pulse Rate 77 65 62 Respiratory Rate 18 20 20 Blood Pressure 105/60 Pulse Oximetry 94 94 94 Oxygen Delivery CPAP CPAP Intake/Output Intake/Output: Intake & Output 04/13/25 04/14/25 04/15/25 04/16/25 23:59 23:59 23:59 23:59 Intake Total 3080 4624.0 800 Output Total 4300 6600 1800 Balance -1220 -1976.0 -1000 Meds/Results Medications: Active Medications Generic Name Dose Route Start Last Admin Trade Name Freq PRN Reason Stop Dose Admin Acetaminophen 650 mg 04/14/25 11:11 Acetaminophen 325 Mg Tablet PO Q4H PRN Mild Pain (1-3) or Fever Hydrocodone Bitart/Acetaminophen 1 tab 04/14/25 11:11 Hydrocodone/Acetaminophen (*Crx) 5-325 Mg Tablet PO Q4H PRN Pain Rated 4-6 Albuterol 2 puff 04/14/25 22:23 Albuterol Sulfate (*Sp) Aerosol 1 Puff INHALATION Q4H PRN shortness of breath or wheezing Dextrose 12.5 gm 04/14/25 12:38 Dextrose 50% 25 Gm/50 Ml Syringe IV PUSH PRN PRN Hypoglycemia Protocol Diclofenac Sodium 75 mg 04/15/25 09:00 04/15/25 21:08 Diclofenac Sod 75 Mg Tablet.Ec PO 75 mg Q12HR NATASHA Administration Empagliflozin 25 mg 04/15/25 09:00 04/15/25 08:40 Empagliflozin 25 Mg Tablet PO 25 mg DAILY NATASHA Administration Fenofibrate 145 mg 04/15/25 09:00 04/15/25 08:40 Fenofibrate Nanocrystallized 145 Mg Tablet PO 145 mg QAM NATASHA Administration Finasteride 5 mg 04/16/25 09:00 Finasteride 5 Mg Tablet PO QAM NATASHA Fish Oil 1 gm 04/15/25 09:00 04/15/25 17:13 [place] 3 Polyunsat Fatty Acids 1 Gm Cap PO 1 gm BID NATASHA Administration Glipizide 5 mg 04/15/25 08:00 04/15/25 08:53 Glipizide Xl 5 Mg Tabcr PO 5 mg DAILY@0800 NATASHA Administration Glucagon 1 mg 04/14/25 12:38 Glucagon For Inj 1 Mg Vial IM PRN PRN Hypoglycemia Protocol Glucose 15 gm 04/14/25 12:38 Glucose Oral Gel 15 Gm Of Glucse In 37.5 Gm Tube PO PRN PRN Hypoglycemia Protocol Hydrochlorothiazide 25 mg 04/15/25 09:00 04/15/25 08:40 Hydrochlorothiazide 25 Mg Tablet PO 25 mg DAILY NATASHA Administration Sodium Chloride 1,000 mls @ 70 mls/hr 04/14/25 11:15 04/15/25 23:33 Normal Saline Iv IV CONT 70 mls/hr .[id number] NATASHA Administration Ceftriaxone Sodium 1 gm in 50 mls @ 100 mls/hr 04/15/25 12:00 04/15/25 11:59 Rocephin 1 Gm/Ns 50 Ml IVPB 100 mls/hr Q24H NATASHA Administration Dextrose 1,000 mls @ 100 mls/hr 04/14/25 12:38 Dextrose 5% 1,000 Ml IVPB PRN PRN Hypoglycemia Protocol Insulin Aspart 4 - 8 units 04/14/25 17:00 04/15/25 17:07 Insulin Aspart (*Bkc) 100 Units/Ml SUB-Q Not Given TIDWM [facility] Protocol Insulin Aspart 35 units 04/15/25 17:00 04/15/25 17:13 Insulin Aspart (*Bkc) 100 Units/Ml SUB-Q Not Given 1700 [facility] Insulin Aspart 30 units 04/16/25 08:00 Insulin Aspart (*Bkc) 100 Units/Ml SUB-Q 0800,1200 [facility] Insulin Glargine 100 units 04/15/25 21:00 04/15/25 21:24 Insulin Glargine (*Bkc) 100 Units/Ml SUB-Q 100 units Q12H NATASHA Administration Lisinopril 40 mg 04/15/25 09:00 04/15/25 08:40 Lisinopril 20 Mg Tablet PO 40 mg DAILY NATASHA Administration Magnesium Oxide 200 mg 04/15/25 09:00 04/15/25 08:40 Magnesium Oxide 200 Mg Tablet PO 200 mg DAILY NATASHA Administration Ondansetron HCl 4 mg 04/14/25 11:11 Ondansetron Inj 4 Mg/2 Ml Vial IV PUSH Q4H PRN Nausea Ropinirole HCl 1 mg 04/15/25 09:00 04/15/25 08:40 Ropinirole Hcl 1 Mg Tablet PO 1 mg DAILY NATASHA Administration Ropinirole HCl 2 mg 04/14/25 22:35 04/15/25 21:08 Ropinirole Hcl 1 Mg Tablet PO 2 mg HS NATASHA Administration Fluticasone/Salmeterol 2 puff 04/15/25 08:00 04/15/25 21:12 Fluticasone/Salmeterol 115-21 Mcg Inhaler 1 Puff INHALATION 2 puff Q12HRT NATASHA Administration Simvastatin 40 mg 04/15/25 09:00 04/15/25 08:41 Simvastatin 20 Mg Tablet PO 40 mg DAILY NATASHA Administration Tamsulosin HCl 0.4 mg 04/16/25 21:00 Tamsulosin Hcl 0.4 Mg Capsule PO QHS [facility] Vitamin D 125 mcg 04/15/25 09:00 04/15/25 08:39 Cholecalciferol (Vitamin D3) 125 Mcg (5,000 Units) Tablet PO 125 mcg DAILY [facility] Administration Radiology Results: ITS Impressions Chest X-Ray 04/14/25 08:51 IMPRESSION: Bibasilar linear opacities may represent atelectasis and/or scarring. Superimposed infection cannot be excluded. Clinical correlation is recommended and short-term follow-up chest radiograph is recommended after appropriate medical therapy. Renal Ultrasound 04/14/25 17:11 IMPRESSION: 1. 2.2 cm left renal cyst. Otherwise normal kidneys without hydronephrosis. Labs Labs: Laboratory Results - last 24 hr 04/15/25 04/15/25 04/15/25 06:48 07:27 11:48 POC Capillary Glucose 169 H 88 Hemoglobin A1c 8.5 H 04/15/25 04/15/25 04/16/25 16:58 20:12 00:26 POC Capillary Glucose 124 H 122 H 127 H Hemoglobin A1c
[2025-04-16 07:32] LABS: Glucose Point of Care 120 mg/dl (65-105)
[2025-04-16] MEDS: EMPAGLIFLOZIN 25 MG TABLET PO (09:09)
[2025-04-16] MEDS: OMEGA 3 POLYUNSAT FATTY ACIDS 1 GM CAP PO ×2 (09:09→17:08)
[2025-04-16] MEDS: lisinopriL 20 MG TABLET 40 MG PO (09:09)
[2025-04-16] MEDS: SIMVASTATIN 20 MG TABLET 40 MG PO (09:09)
[2025-04-16] MEDS: DICLOFENAC SOD 75 MG TABLET.EC PO ×2 (09:09→20:43)
[2025-04-16] MEDS: MAGNESIUM OXIDE 200 MG TABLET PO (09:10)
[2025-04-16] MEDS: rOPINIRole HCL 1 MG TABLET PO (09:10)
[2025-04-16] MEDS: CHOLECALCIFEROL (VITAMIN D3) 125 MCG (5,000 UNITS) TABLET PO (09:10)
[2025-04-16] MEDS: hydroCHLOROthiazide 25 MG TABLET PO (09:10)
[2025-04-16] MEDS: FENOFIBRATE NANOCRYSTALLIZED 145 MG TABLET PO (09:10)
[2025-04-16] MEDS: FINASTERIDE 5 MG TABLET PO (09:10)
[2025-04-16] MEDS: glipiZIDE XL 5 MG TABCR PO (09:15)
[2025-04-16 09:48] VITALS: O2SAT 95
[2025-04-16] MEDS: FLUTICASONE/SALMETEROL 115-21 MCG INHALER 1 PUFF 2 PUFF INHALATION (09:48)
[2025-04-16 11:49] LABS: Glucose Point of Care 110 mg/dl (65-105)
[2025-04-16] MEDS: INSULIN ASPART (*BKC) 100 UNITS/ML 15 UNITS SUB-Q ×2 (12:00→17:09)
--- NOTE | 2025-04-16 12:51 | P.PNIM_ITS ---
Progress Note: A&P Assessment and Plan (1) MARIA D (acute kidney injury): Code(s): N17.9 - Acute kidney failure, unspecified Status: Acute Assessment and Plan: Likely secondary to urine retention, UTI Folic catheter is placed, Patient is on ceftriaxone IV (2) Urinary retention: Code(s): R33.9 - Retention of urine, unspecified Status: Acute Assessment and Plan: - sp molina cath - start Flomax - consult urology (3) UTI (urinary tract infection): Qualifiers: Urinary tract infection type: acute cystitis Hematuria presence: with out hematuria Qualified Code(s): N30.00 - Acute cystitis without hematuria Code(s): N39.0 - Urinary tract infection, site not specified Status: Acute Assessment and Plan: - uc ordered await results - started on Ceftriaxone on 04/14 Urine culture grows coagulase-negative Staph (4) Diabetes: Qualifiers: Diabetes mellitus type: type 2 Diabetes mellitus 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 Patient denies nausea vomiting. Patient still has dysuria Exam Narrative: GENERAL: Pleasant, in no acute distress. Well-nourished. - EYES: EOMI. Anicteric. - HENT: Moist mucous membranes. - LUNGS: Clear to auscultation bilateral ly, no wheezing, rhonchi, or rales. - CARDIOVASCULAR: Regular rate and rhyth m. No murmur. No JVD. - ABDOMEN: Soft, non-tender and non-dist ended. No palpable masses. - EXTREMITIES: No edema. Peripheral puls es 2+. Non-tender. - NEUROLOGIC: No focal neurological defi cits. CN II-XII grossly intact. - PSYCHIATRIC: Awake, Alert and oriented x 3. Appropriate mood and affect. - SKIN: No rashes or lesions. Warm. - LYMPH: No cervical lymphadenopathy. Objective Data Vital Signs Vital Signs: Vital Signs - 24 hr 04/15/25 14:00 04/15/25 21:08 04/15/25 21:14 Temperature 97.3 F L 97.2 F L Pulse Rate 75 81 Respiratory Rate 20 20 Blood Pressure 112/58 L 100/57 L Pulse Oximetry 94 94 94 Oxygen Delivery Room Air 04/15/25 22:50 04/16/25 02:50 04/16/25 05:55 Temperature 97.4 F L Pulse Rate 77 65 62 Respiratory Rate 18 20 20 Blood Pressure 105/60 Pulse Oximetry 94 94 94 Oxygen Delivery CPAP CPAP 04/16/25 09:09 04/16/25 09:48 Temperature Pulse Rate Respiratory Rate Blood Pressure Pulse Oximetry 95 Oxygen Delivery Room Air Room Air Intake/Output Intake/Output: Intake & Output 04/13/25 04/14/25 04/15/25 04/16/25 23:59 23:59 23:59 23:59 Intake Total 3080 4624.0 1830 Output Total 4300 6600 1800 Balance -1220 -1976.0 30 Meds/Results Medications: Active Medications Generic Name Dose Route Start Last Admin Trade Name Freq PRN Reason Stop Dose Admin Acetaminophen 650 mg 04/14/25 11:11 Acetaminophen 325 Mg Tablet PO Q4H PRN Mild Pain (1-3) or Fever Hydrocodone Bitart/Acetaminophen 1 tab 04/14/25 11:11 Hydrocodone/Acetaminophen (*Crx) 5-325 Mg Tablet PO Q4H PRN Pain Rated 4-6 Albuterol 2 puff 04/14/25 22:23 Albuterol Sulfate (*Sp) Aerosol 1 Puff INHALATION Q4H PRN shortness of breath or wheezing Dextrose 12.5 gm 04/14/25 12:38 Dextrose 50% 25 Gm/50 Ml Syringe IV PUSH PRN PRN Hypoglycemia Protocol Diclofenac Sodium 75 mg 04/15/25 09:00 04/16/25 09:09 Diclofenac Sod 75 Mg Tablet.Ec PO 75 mg Q12HR NATASHA Administration Empagliflozin 25 mg 04/15/25 09:00 04/16/25 09:09 Empagliflozin 25 Mg Tablet PO 25 mg DAILY NATASHA Administration Fenofibrate 145 mg 04/15/25 09:00 04/16/25 09:10 Fenofibrate Nanocrystallized 145 Mg Tablet PO 145 mg QAM NATASHA Administration Finasteride 5 mg 04/16/25 09:00 04/16/25 09:10 Finasteride 5 Mg Tablet PO 5 mg QAM NATASHA Administration Fish Oil 1 gm 04/15/25 09:00 04/16/25 09:09 [place] 3 Polyunsat Fatty Acids 1 Gm Cap PO 1 gm BID NATASHA Administration Glipizide 5 mg 04/15/25 08:00 04/16/25 09:15 Glipizide Xl 5 Mg Tabcr PO 5 mg DAILY@0800 NATASHA Administration Glucagon 1 mg 04/14/25 12:38 Glucagon For Inj 1 Mg Vial IM PRN PRN Hypoglycemia Protocol Glucose 15 gm 04/14/25 12:38 Glucose Oral Gel 15 Gm Of Glucse In 37.5 Gm Tube PO PRN PRN Hypoglycemia Protocol Hydrochlorothiazide 25 mg 04/15/25 09:00 04/16/25 09:10 Hydrochlorothiazide 25 Mg Tablet PO 25 mg DAILY NATASHA Administration Sodium Chloride 1,000 mls @ 70 mls/hr 04/14/25 11:15 04/15/25 23:33 Normal Saline Iv IV CONT 70 mls/hr .[id number] NATASHA Administration Ceftriaxone Sodium 1 gm in 50 mls @ 100 mls/hr 04/15/25 12:00 04/16/25 12:04 Rocephin 1 Gm/Ns 50 Ml IVPB 50 mls/hr Q24H NATASHA Administration Dextrose 1,000 mls @ 100 mls/hr 04/14/25 12:38 Dextrose 5% 1,000 Ml IVPB PRN PRN Hypoglycemia Protocol Insulin Aspart 4 - 8 units 04/14/25 17:00 04/16/25 11:56 Insulin Aspart (*Bkc) 100 Units/Ml SUB-Q Not Given TIDWM [facility] Protocol Insulin Aspart 15 units 04/16/25 12:00 04/16/25 12:00 Insulin Aspart (*Bkc) 100 Units/Ml SUB-Q 15 units 0800,1200 NATASHA Administration Insulin Aspart 15 units 04/16/25 17:00 Insulin Aspart (*Bkc) 100 Units/Ml SUB-Q 1700 [facility] Insulin Glargine 50 units 04/16/25 09:48 04/16/25 10:53 Insulin Glargine (*Bkc) 100 Units/Ml SUB-Q Not Given Q12H [facility] Lisinopril 40 mg 04/15/25 09:00 04/16/25 09:09 Lisinopril 20 Mg Tablet PO 40 mg DAILY NATASHA Administration Magnesium Oxide 200 mg 04/15/25 09:00 04/16/25 09:10 Magnesium Oxide 200 Mg Tablet PO 200 mg DAILY NATAHSA Administration Ondansetron HCl 4 mg 04/14/25 11:11 Ondansetron Inj 4 Mg/2 Ml Vial IV PUSH Q4H PRN Nausea Ropinirole HCl 1 mg 04/15/25 09:00 04/16/25 09:10 Ropinirole Hcl 1 Mg Tablet PO 1 mg DAILY NATASHA Administration Ropinirole HCl 2 mg 04/14/25 22:35 04/15/25 21:08 Ropinirole Hcl 1 Mg Tablet PO 2 mg HS NATASHA Administration Fluticasone/Salmeterol 2 puff 04/15/25 08:00 04/16/25 09:48 Fluticasone/Salmeterol 115-21 Mcg Inhaler 1 Puff INHALATION 2 puff Q12HRT NATASHA Administration Simvastatin 40 mg 04/15/25 09:00 04/16/25 09:09 Simvastatin 20 Mg Tablet PO 40 mg DAILY NATASHA Administration Tamsulosin HCl 0.4 mg 04/16/25 21:00 Tamsulosin Hcl 0.4 Mg Capsule PO QHS [facility] Vitamin D 125 mcg 04/15/25 09:00 04/16/25 09:10 Cholecalciferol (Vitamin D3) 125 Mcg (5,000 Units) Tablet PO 125 mcg DAILY NATASHA Administration Radiology Results: ITS Impressions Chest X-Ray 04/14/25 08:51 IMPRESSION: Bibasilar linear opacities may represent atelectasis and/or scarring. Superimposed infection cannot be excluded. Clinical correlation is recommended and short-term follow-up chest radiograph is recommended after appropriate medical therapy. Renal Ultrasound 04/14/25 17:11 IMPRESSION: 1. 2.2 cm left renal cyst. Otherwise normal kidneys without hydronephrosis. Labs Labs: Laboratory Results - last 24 hr 04/15/25 04/15/25 04/16/25 16:58 20:12 00:26 POC Capillary Glucose 124 H 122 H 127 H 04/16/25 04/16/25 07:29 11:43 POC Capillary Glucose 120 H 110 H
[2025-04-16 13:37] LABS: Basophils Percent Auto 0.4 % (0.2-1.2); Eosinophils Absolute Auto 0.3 K/mm3 (0-0.3); Hematocrit 42.3 % (42.0-52.0); Immature Granulocyte Absolute 0.08 K/mm3 (0.00-0.031); Immature Granulocyte Percent A 0.8 % (0-0.5); Lymphocytes Absolute Auto 2.01 K/mm3 (0.9-3.2); Lymphocytes Percent Auto 20.2 % (18.3-44.2); Mean Corpuscular HGB Conc 30.7 g/dl (32-36); Mean Corpuscular Hemoglobin 25.1 pg (26-34); Mean Corpuscular Volume 81.8 fl (80-100); Mean Platelet Volume 9.6 fl (7.4-10.4); Monocytes Absolute Auto 0.8 K/mm3 (0.1-0.6); Monocytes Percent Auto 7.8 % (2.6-8.5); Neutrophils Absolute Auto 6.7 K/mm3 (1.3-6.7); Neutrophils Percent Auto 67.8 % (45.5-73.1); Platelet Count Result 297 k/mm3 (150-375); Red Blood Count 5.17 M/mm3 (4.6-6.20); Red Cell Distribution Width 15.6 % (11.5-14.5); White Blood Count 9.9 K/mm3 (4.5-10.0)
[2025-04-16 13:46] LABS: Anion Gap 13 mmol/L (4-12); Blood Urea Nitrogen 29 mg/dL (9-20); Calcium 9.6 mg/dL (8.4-10.2); Carbon Dioxide 24 mmol/L (22-30); Chloride 101 mmol/L (98-107); Estimated CRCL calculation 61 ml/min; Estimated Glomerular Filt Rate 48; Glucose 152 mg/dL (65-110); Potassium 4.2 mmol/L (3.4-5.0); Sodium 138 mmol/L (137-145)
[2025-04-16 14:00] VITALS: BP 137/71; PULSE 90; RESP 20; TEMP 35.5; O2SAT 96
[2025-04-16 16:46] LABS: Glucose Point of Care 345 mg/dl (65-105)
[2025-04-16] MEDS: INSULIN ASPART (*BKC) 100 UNITS/ML SUB-Q (17:08)
[2025-04-16 20:23] LABS: Glucose Point of Care 126 mg/dl (65-105)
[2025-04-16] MEDS: SODIUM CHLORIDE 0.9% IV 1,000 ML 70 ML IV CONT (20:39)
[2025-04-16 20:40] VITALS: PULSE 71; RESP 16; O2SAT 95
[2025-04-16] MEDS: TAMSULOSIN HCL 0.4 MG CAPSULE PO (20:43)
[2025-04-16] MEDS: rOPINIRole HCL 1 MG TABLET 2 MG PO (20:43)
[2025-04-16] MEDS: INSULIN GLARGINE (*BKC) 100 UNITS/ML 50 UNITS SUB-Q (20:48)
[2025-04-16 21:31] VITALS: BP 114/56; PULSE 71; RESP 16; TEMP 36.2; O2SAT 95
--- NOTE | 2025-04-17 02:47 | PC.NURSE ---
I agree with Lizbeth LEBRON's assessment
[2025-04-17 06:00] VITALS: BP 104/49; PULSE 65; RESP 19; TEMP 36.6; O2SAT 94
[2025-04-17 08:17] LABS: Glucose Point of Care 126 mg/dl (65-105)
[2025-04-17] MEDS: FLUTICASONE/SALMETEROL 115-21 MCG INHALER 1 PUFF 2 PUFF INHALATION (08:18)
[2025-04-17 08:20] VITALS: O2SAT 94
[2025-04-17] MEDS: lisinopriL 20 MG TABLET 40 MG PO (09:19)
[2025-04-17] MEDS: glipiZIDE XL 5 MG TABCR PO (09:19)
[2025-04-17] MEDS: MAGNESIUM OXIDE 200 MG TABLET PO (09:19)
[2025-04-17] MEDS: FENOFIBRATE NANOCRYSTALLIZED 145 MG TABLET PO (09:19)
[2025-04-17] MEDS: DICLOFENAC SOD 75 MG TABLET.EC PO (09:19)
[2025-04-17] MEDS: hydroCHLOROthiazide 25 MG TABLET PO (09:19)
[2025-04-17] MEDS: SIMVASTATIN 20 MG TABLET 40 MG PO (09:19)
[2025-04-17] MEDS: rOPINIRole HCL 1 MG TABLET PO (09:20)
[2025-04-17] MEDS: FINASTERIDE 5 MG TABLET PO (09:20)
[2025-04-17] MEDS: OMEGA 3 POLYUNSAT FATTY ACIDS 1 GM CAP PO (09:20)
[2025-04-17] MEDS: CHOLECALCIFEROL (VITAMIN D3) 125 MCG (5,000 UNITS) TABLET PO (09:20)
--- NOTE | 2025-04-17 09:24 | P.DS_ITS ---
<Statement entered by Kelly Rosario MD - 05/18/25 21:47> I was not involved in the care of this gentleman DS: Summary Hospital Course Hospital Course: I was not involved in the care of this gentleman <Kelly Rosario MD - Last Filed: 05/18/25 21:48> Time Spent with Patient Time attestation: Total time spent providing and/or coordinating discharge services: <Filiberto Rosario MD - Last Filed: 04/17/25 09:24> DS: Data Data Completed and Pending Labs on day of discharge: Labs from last 24 hours 04/17/25 04/16/25 04/16/25 07:49 20:12 16:37 WBC RBC Hgb Hct MCV MCH MCHC RDW Plt Count MPV Immature Gran % (Auto) Neut % (Auto) Lymph % (Auto) [place] % (Auto) Eos % (Auto) Baso % (Auto) Lymph # (Auto) [place] # (Auto) Eos # (Auto) Baso # (Auto) Abs Immat Gran (auto) Absolute Neuts (auto) Absolute Nucleated RBC Nucleated RBC % Sodium Potassium Chloride Carbon Dioxide Anion Gap BUN Creatinine Estim Creat Clear Calc Estimated GFR Glucose POC Capillary Glucose 126 H 126 H 345 H Calcium 04/16/25 04/16/25 13:12 11:43 WBC 9.9 RBC 5.17 Hgb 13.0 L Hct 42.3 MCV 81.8 MCH 25.1 L MCHC 30.7 L RDW 15.6 H Plt Count 297 MPV 9.6 Immature Gran % (Auto) 0.8 H Neut % (Auto) 67.8 Lymph % (Auto) 20.2 [place] % (Auto) 7.8 Eos % (Auto) 3.0 Baso % (Auto) 0.4 Lymph # (Auto) 2.01 [place] # (Auto) 0.8 H Eos # (Auto) 0.3 Baso # (Auto) 0.0 Abs Immat Gran (auto) 0.08 H Absolute Neuts (auto) 6.7 Absolute Nucleated RBC 0.000 Nucleated RBC % 0.0 Sodium 138 Potassium 4.2 Chloride 101 Carbon Dioxide 24 Anion Gap 13 H BUN 29 H Creatinine 1.48 H Estim Creat Clear Calc 61 Estimated GFR 48 L Glucose 152 H POC Capillary Glucose 110 H Calcium 9.6 <Filiberto Rosario MD - Last Filed: 04/17/25 09:24> Discharge Plan Discharge Attending physician on discharge: Kelly Rosario <Filiberto Rosario MD - Last Filed: 04/17/25 09:24> Kelly Rosario <Kelly Rosario MD - Last Filed: 05/18/25 21:48> Consulting providers: Asad Barnes; Chilango Redd; Traci Kennedy; Yasmin Shankar; Kobe Frausto; Patrick Helms; Faheem Lagos <Filiberto Rosario MD - Last Filed: 04/17/25 09:24> Discharging Clinician: Kelly Rosario <Filiberto Rosraio MD - Last Filed: 04/17/25 09:24> Kelly Rosario <Kelly Rosario MD - Last Filed: 05/18/25 21:48> Patient Disposition: Home <Filiberto Rosario MD - Last Filed: 04/17/25 09:24> Activity: as tolerated <Filiberto Rosario MD - Last Filed: 04/17/25 09:24> as tolerated <Kelly Rosario MD - Last Filed: 05/18/25 21:48> Diet: diabetic <Filiberto Rosario MD - Last Filed: 04/17/25 09:24> diabetic <Kelly Rosario MD - Last Filed: 05/18/25 21:48> Patient Instructions: Antibiotic Form <Filiberto Rosario MD - Last Filed: 04/17/25 09:24> Patient Language: Bel[place]ian <Filiberto Rosario MD - Last Filed: 04/17/25 09:24> Stand Alone Forms: General Discharge Information <Filiberto Rosario MD - Last Filed: 04/17/25 09:24> Follow-up/Referrals: Asad Barnes MD [Physician] - <Filiberto Rosario MD - Last Filed: 04/17/25 09:24> Discharge Medications: New tamsulosin 0.4 mg Capsule 0.4 mg PO QHS Qty: 30 0RF Continued Jardiance 25 mg tablet 25 mg PO DAILY fenofibrate micronized 134 mg capsule 134 mg PO DAILY magnesium 250 mg tablet 250 mg PO DAILY ropinirole 1 mg tablet 1 mg PO DAILY ropinirole 2 mg tablet 2 mg PO HS simvastatin 40 mg tablet 40 mg PO DAILY lisinopril 40 mg tablet 40 mg PO DAILY omega-3 acid ethyl esters 1 gram capsule 2 cap PO BID albuterol sulfate 90 mcg/actuation HFA aerosol inhaler 2 puff INHALATION Q4H PRN (Reason: shortness of breath or wheezing) Dulera 100-5 mcg/actuation HFA aerosol inhaler 2 puff INHALATION Q12H hydrochlorothiazide 25 mg tablet 25 mg PO DAILY cholecalciferol (vitamin D3) [Vitamin D3] 50 mcg (2,000 unit) tablet 2,000 unit PO DAILY Discontinued diclofenac sodium 75 mg tablet,delayed release (DR/EC) 75 mg PO Q12H No Action benzonatate 200 mg capsule 200 mg PO Q8H PRN (Reason: cough) insulin aspart U-100 [Novolog U-100 Insulin aspart] 100 unit/mL Solution 10 unit subcut TIDWM Qty: 10 0RF insulin glargine [Lantus U-100 Insulin] 100 unit/mL Solution 20 unit subcut HS Qty: 10 0RF tamsulosin 0.4 mg Capsule 0.4 mg PO HS Qty: 90 0RF finasteride [Proscar] 5 mg Tablet 5 mg PO QAM Qty: 90 0RF Ozempic 1 mg/dose (4 mg/3 mL) pen injector 1 mg subcut WEEKLY Qty: 3 2RF <Filiberto Rosario MD - Last Filed: 04/17/25 09:24> Date of admission: 04/15/25 14:51 <Filiberto Rosario MD - Last Filed: 04/17/25 09:24> Primary Care Provider: Arlyn,Sven Terrell <Filiberto Rosario MD - Last Filed: 04/17/25 09:24> Admitting Provider: Mckay Kathleen <Filiberto Rosario MD - Last Filed: 04/17/25 09:24> Attending physician on admission: Filiberto Rosario <Filiberto Rosario MD - Last Filed: 04/17/25 09:24> Condition: Stable <Filiberto Rosario MD - Last Filed: 04/17/25 09:24>
--- NOTE | 2025-04-17 09:24 | P.DS_ITS ---
<Statement entered by Kelly Rosario MD - 05/18/25 21:47> I was not involved in the care of this gentleman DS: Summary Time Spent with Patient Time attestation: Total time spent providing and/or coordinating discharge services: DS: Data Data Completed and Pending Labs on day of discharge: Labs from last 24 hours 04/17/25 04/16/25 04/16/25 07:49 20:12 16:37 WBC RBC Hgb Hct MCV MCH MCHC RDW Plt Count MPV Immature Gran % (Auto) Neut % (Auto) Lymph % (Auto) [place] % (Auto) Eos % (Auto) Baso % (Auto) Lymph # (Auto) [place] # (Auto) Eos # (Auto) Baso # (Auto) Abs Immat Gran (auto) Absolute Neuts (auto) Absolute Nucleated RBC Nucleated RBC % Sodium Potassium Chloride Carbon Dioxide Anion Gap BUN Creatinine Estim Creat Clear Calc Estimated GFR Glucose POC Capillary Glucose 126 H 126 H 345 H Calcium 04/16/25 04/16/25 13:12 11:43 WBC 9.9 RBC 5.17 Hgb 13.0 L Hct 42.3 MCV 81.8 MCH 25.1 L MCHC 30.7 L RDW 15.6 H Plt Count 297 MPV 9.6 Immature Gran % (Auto) 0.8 H Neut % (Auto) 67.8 Lymph % (Auto) 20.2 [place] % (Auto) 7.8 Eos % (Auto) 3.0 Baso % (Auto) 0.4 Lymph # (Auto) 2.01 [place] # (Auto) 0.8 H Eos # (Auto) 0.3 Baso # (Auto) 0.0 Abs Immat Gran (auto) 0.08 H Absolute Neuts (auto) 6.7 Absolute Nucleated RBC 0.000 Nucleated RBC % 0.0 Sodium 138 Potassium 4.2 Chloride 101 Carbon Dioxide 24 Anion Gap 13 H BUN 29 H Creatinine 1.48 H Estim Creat Clear Calc 61 Estimated GFR 48 L Glucose 152 H POC Capillary Glucose 110 H Calcium 9.6 Discharge Plan Discharge Attending physician on discharge: Kelly Rosario Consulting providers: Asad Barnes; Chilango Redd; Traci Kennedy; Yasmin Shankar; Kobe Frausto; Patrick Helms; Faheem Lagos Discharging Clinician: Kelly Rosario Patient Disposition: Home Activity: as tolerated Diet: diabetic Patient Instructions: Antibiotic Form Patient Language: Citizen Of [place] Stand Alone Forms: General Discharge Information Follow-up/Referrals: Asad Barnes MD [Physician] - Discharge Medications: New tamsulosin 0.4 mg Capsule 0.4 mg PO QHS Qty: 30 0RF Continued Jardiance 25 mg tablet 25 mg PO DAILY fenofibrate micronized 134 mg capsule 134 mg PO DAILY magnesium 250 mg tablet 250 mg PO DAILY ropinirole 1 mg tablet 1 mg PO DAILY ropinirole 2 mg tablet 2 mg PO HS simvastatin 40 mg tablet 40 mg PO DAILY lisinopril 40 mg tablet 40 mg PO DAILY omega-3 acid ethyl esters 1 gram capsule 2 cap PO BID albuterol sulfate 90 mcg/actuation HFA aerosol inhaler 2 puff INHALATION Q4H PRN (Reason: shortness of breath or wheezing) Dulera 100-5 mcg/actuation HFA aerosol inhaler 2 puff INHALATION Q12H hydrochlorothiazide 25 mg tablet 25 mg PO DAILY cholecalciferol (vitamin D3) [Vitamin D3] 50 mcg (2,000 unit) tablet 2,000 unit PO DAILY Discontinued diclofenac sodium 75 mg tablet,delayed release (DR/EC) 75 mg PO Q12H No Action benzonatate 200 mg capsule 200 mg PO Q8H PRN (Reason: cough) insulin aspart U-100 [Novolog U-100 Insulin aspart] 100 unit/mL Solution 10 unit subcut TIDWM Qty: 10 0RF insulin glargine [Lantus U-100 Insulin] 100 unit/mL Solution 20 unit subcut HS Qty: 10 0RF tamsulosin 0.4 mg Capsule 0.4 mg PO HS Qty: 90 0RF finasteride [Proscar] 5 mg Tablet 5 mg PO QAM Qty: 90 0RF Ozempic 1 mg/dose (4 mg/3 mL) pen injector 1 mg subcut WEEKLY Qty: 3 2RF Date of admission: 04/15/25 14:51 Primary Care Provider: Arlyn,Sven Terrell Admitting Provider: Mckay Kathleen Attending physician on admission: Filiberto Rosario Condition: Stable
--- NOTE | 2025-04-17 09:26 | P.DS_ITS ---
DS: Admitting Diagnosis Discharge Date 04/17/2025 Admitting Diagnosis UTI DS: Discharge Diagnosis Discharge Diagnosis (1) MARIA D (acute kidney injury): Code(s): N17.9 - Acute kidney failure, unspecified Status: Acute Assessment and Plan: Likely secondary to urine retention, UTI Folic catheter is placed, Patient is on ceftriaxone IV (2) Urinary retention: Code(s): R33.9 - Retention of urine, unspecified Status: Acute Assessment and Plan: - sp molina cath - start Flomax - consult urology (3) UTI (urinary tract infection): Qualifiers: Hematuria presence: without hematuria Urinary tract infection type: acute cystitis Qualified Code(s): N30.00 - Acute cystitis without hematuria Code(s): N39.0 - Urinary tract infection, site not specified Status: Acute Assessment and Plan: - uc ordered await results - started on Ceftriaxone on 04/14 Urine culture grows coagulase-negative Staph (4) Diabetes: Qualifiers: Diabetes mellitus complication status: without complication Diabetes mellitus nursing home insulin use: without nursing home use Diabetes mellitus type: type 2 Qualified Code(s): E11.9 - Type 2 diabetes mellitus without complications Code(s): E11.9 - Type 2 diabetes mellitus without complications Status: Chronic Assessment and Plan: - watch sugars - accuchecks, ssi Plan diet ; DM Code Status: Full code DS: Summary Hospital Course Reason for hospitalization: UTI Hospital Course: 64 years old male was admitted possible UTI infection. Patient also has with prostate. Patient medication for diabetes were continued. Patient was treated with ceftriaxone. Urine culture shows E coli infection. Today patient is feeling better. Patient discharged home in stable condition. Follow-up with [facility] neurology scheduled. Patient advise to repeat his BMP as an outpatient. Status at Discharge Cognitive/behavioral status at discharge: Stable Time Spent with Patient Time attestation: 30 minutes Total time spent providing and/or coordinating discharge services: Exam Narrative: GENERAL: Pleasant, in no acute distress. Well-nourished. - EYES: EOMI. Anicteric. - HENT: Moist mucous membranes. - LUNGS: Clear to auscultation bilateral ly, no wheezing, rhonchi, or rales. - CARDIOVASCULAR: Regular rate and rhyth m. No murmur. No JVD. - ABDOMEN: Soft, non-tender and non-dist ended. No palpable masses. - EXTREMITIES: No edema. Peripheral puls es 2+. Non-tender. - NEUROLOGIC: No focal neurological defi cits. CN II-XII grossly intact. - PSYCHIATRIC: Awake, Alert and oriented x 3. Appropriate mood and affect. - SKIN: No rashes or lesions. Warm. - LYMPH: No cervical lymphadenopathy. Const: General: comfortable and no acute distress Other: , male, nontoxic appearance HENMT: Face/Nose/Sinus: Normal nares present Mouth: Yes moist mucous membranes Eyes: General: appearance normal, both eyes and all related structures Sclera: sclerae normal Pupils: Equal, round and reactive pupils present EOM: EOMs intact bilaterally Resp: Effort & Inspection: normal respiratory effort Auscultation: clear to auscultation bilaterally Cardio: Rate: regular rate Rhythm: regular rhythm Other: No heart GI: Other: Abdomen rounded, tight but soft, nontender. Normoactive bowel sounds in all quadrants. Urinary Catheter: Urinary Catheter: patent and draining Skin: General skin exam: normal color and no rashes or lesions noted Wounds: no wounds Neuro: Cranial nerves: Yes Equal, round and reactive pupils present Speech: normal speech Motor exam (neuro): 5/5 motor strength present throughout Sensory Exam: normal sensation Other: A&O x4 Extrem: General: normal to inspection Psych: Mental Status: mental status grossly normal Affect: normal affect Other: Good insight and judgment, pleasant DS: Data Data Completed and Pending Labs on day of discharge: Labs from last 24 hours 04/17/25 04/16/25 04/16/25 07:49 20:12 16:37 WBC RBC Hgb Hct MCV MCH MCHC RDW Plt Count MPV Immature Gran % (Auto) Neut % (Auto) Lymph % (Auto) White % (Auto) Eos % (Auto) Baso % (Auto) Lymph # (Auto) White # (Auto) Eos # (Auto) Baso # (Auto) Abs Immat Gran (auto) Absolute Neuts (auto) Absolute Nucleated RBC Nucleated RBC % Sodium Potassium Chloride Carbon Dioxide Anion Gap BUN Creatinine Estim Creat Clear Calc Estimated GFR Glucose POC Capillary Glucose 126 H 126 H 345 H Calcium 04/16/25 04/16/25 13:12 11:43 WBC 9.9 RBC 5.17 Hgb 13.0 L Hct 42.3 MCV 81.8 MCH 25.1 L MCHC 30.7 L RDW 15.6 H Plt Count 297 MPV 9.6 Immature Gran % (Auto) 0.8 H Neut % (Auto) 67.8 Lymph % (Auto) 20.2 White % (Auto) 7.8 Eos % (Auto) 3.0 Baso % (Auto) 0.4 Lymph # (Auto) 2.01 White # (Auto) 0.8 H Eos # (Auto) 0.3 Baso # (Auto) 0.0 Abs Immat Gran (auto) 0.08 H Absolute Neuts (auto) 6.7 Absolute Nucleated RBC 0.000 Nucleated RBC % 0.0 Sodium 138 Potassium 4.2 Chloride 101 Carbon Dioxide 24 Anion Gap 13 H BUN 29 H Creatinine 1.48 H Estim Creat Clear Calc 61 Estimated GFR 48 L Glucose 152 H POC Capillary Glucose 110 H Calcium 9.6 Discharge Plan Discharge Attending physician on discharge: Kelly Rosario Consulting providers: Asad Barnes Discharging Clinician: Kelly Rosario Patient Disposition: Home Activity: as tolerated Diet: diabetic Patient Instructions: Antibiotic Form Patient Language: [place] Stand Alone Forms: General Discharge Information Follow-up/Referrals: Asad Barnes MD [Physician] - Discharge Medications: New tamsulosin 0.4 mg Capsule 0.4 mg PO QHS Qty: 30 0RF levofloxacin 250 mg tablet 250 mg PO DAILY Qty: 7 0RF Continued insulin lispro [Humalog KwikPen Insulin] 100 unit/mL insulin pen 65 unit subcut 0800,1200 insulin lispro 100 unit/mL insulin pen 70 unit SUBCUT 1700 Jardiance 25 mg tablet 25 mg PO DAILY Ozempic 0.25 mg or 0.5 mg (2 mg/3 mL) pen injector 0.5 mg SUBCUT WEEKLY glipizide 5 mg tablet extended release 24hr 5 mg PO DAILY fenofibrate micronized 134 mg capsule 134 mg PO DAILY magnesium 250 mg tablet 250 mg PO DAILY ropinirole 1 mg tablet 1 mg PO DAILY ropinirole 2 mg tablet 2 mg PO HS simvastatin 40 mg tablet 40 mg PO DAILY lisinopril 40 mg tablet 40 mg PO DAILY omega-3 acid ethyl esters 1 gram capsule 2 cap PO BID albuterol sulfate 90 mcg/actuation HFA aerosol inhaler 2 puff INHALATION Q4H PRN (Reason: shortness of breath or wheezing) insulin degludec [Tresiba FlexTouch U-200] 200 unit/mL (3 mL) insulin pen 200 unit SUBCUT DAILY Dulera 100-5 mcg/actuation HFA aerosol inhaler 2 puff INHALATION Q12H hydrochlorothiazide 25 mg tablet 25 mg PO DAILY dapagliflozin propanediol [Farxiga] 10 mg tablet 10 mg PO DAILY cholecalciferol (vitamin D3) [Vitamin D3] 50 mcg (2,000 unit) tablet 2,000 unit PO DAILY Discontinued diclofenac sodium 75 mg tablet,delayed release (DR/EC) 75 mg PO Q12H Date of admission: 04/15/25 14:51 Primary Care Provider: Arlyn,Sven Terrell Admitting Provider: Mckay Kathleen Attending physician on admission: Mckay Kathleen Condition: Stable Quality VTE Prophylaxis VTE prophylaxis: mechanical ordered
[2025-04-17] MEDS: INSULIN ASPART (*BKC) 100 UNITS/ML 15 UNITS SUB-Q (09:33)
[2025-04-17] MEDS: EMPAGLIFLOZIN 25 MG TABLET PO (09:36)
== END 2025-04-17 11:36 | disposition home or self-care (01) | DRG 690 ==
LOC: ANHED 09:33 → ANH3MEDSUR 12:21
PROVIDERS: Hospitalist; Student in an Organized Health Care Education/Training Program; Admitting Provider Internal Medicine; Emergency Provider Emergency Medicine; PCP Internal Medicine; Visit Provider Internal Medicine
DX: N39.0 Urinary tract infection, site not specified (principal); N17.9 Acute kidney failure, unspecified; B95.7 Other staphylococcus as the cause of diseases classified elsewhere; N40.1 Benign prostatic hyperplasia with lower urinary tract symptoms; E11.9 Type 2 diabetes mellitus without complications; R33.8 Other retention of urine; G47.30 Sleep apnea, unspecified; J44.9 Chronic obstructive pulmonary disease, unspecified; Z87.891 Personal history of nicotine dependence
CPT/HCPCS: 36415; 71046; 76775; 80048; 80053; 81001; 82550; 82570; 82948; 83036; 83605; 84156; 84300; 84540; 85025; 87086; 87181; 93005; 94640; 96361; 96365; 96375; 97161; 99285; A9270; G0378; J0696; J1815; J7030

== ENCOUNTER 2025-04-18 10:53 | Inpatient (IN) | payer MEDICARE, SELFPAY ==
[2025-04-18] VITALS (9 sets, daily range): BP systolic 117–143; BP diastolic 58–88; PULSE 69–81; RESP 14–20; TEMP 36.8; O2SAT 91–99; BMI 40.2
--- NOTE | ~2025-04-18 | CT_ITS ---
Non-contrast Head CT History: Dizziness Technique: Axial non-contrast imaging of the brain was performed. Dose reduction technique was used on this scan by utilizing automated exposure control and iterative reconstruction technique. The dose -length product (DLP) was 605.33 mGy-cm. Findings: There is no evidence of intracranial hemorrhage, mass lesion, or acute infarct. Brain par enchyma appears normal. The ventricles and subarachnoid spaces are normal in size. The calvarium ap pears normal. The visualized paranasal sinuses and mastoid air cells are clear. Impression: No significant abnormality seen. Reviewed, dictated and finalized at location . Impression: No significant abnormality seen.
--- NOTE | ~2025-04-18 | XR_ITS ---
Clinical Indication: Weakness PA and lateral views of the chest: Comparison: 04/14/2025 Findings: Patchy left basilar airspace disease is present, similar to prior exam. Right lung clear. Cardiomediastinal silhouette is within normal limits. Bones and soft tissues are unremarkable. Impression: Left basilar atelectasis or pneumonia. Correlate clinically. Reviewed, dictated and finalized at [facility]. Impression: Left basilar atelectasis or pneumonia. Correlate clinically.
--- NOTE | 2025-04-18 11:16 | ECG_ITS ---
Test Date: 2025-04-18 11:22:18 Measurements Intervals Jerome Rate: 69 P: 37 MT: 187 QRS: 43 QRSD: 98 T: 31 QT: 377 QTc: 405 Interpretive Statements SINUS RHYTHM MINIMAL Q WAVES- INFERIOR LEADS BASELINE ARTIFACT- I, II, III, AVR, AVL, V2 BORDERLINE ECG Compared to ECG 04/14/2025 08:00:17 No significant changes Electronically Signed On 04-18-2025 13:52:01 CDT by Chilango Redd D.O.
[2025-04-18 11:47] LABS: Hematocrit 40.0 % (42.0-52.0); Hemoglobin 12.4 g/dL (14.0-18.0); Immature Granulocyte Percent A 0.9 % (0-0.5); Lymphocytes Absolute Auto 1.06 K/mm3 (0.9-3.2); Mean Corpuscular HGB Conc 31.0 g/dl (32-36); Mean Corpuscular Hemoglobin 25.3 pg (26-34); Mean Corpuscular Volume 81.6 fl (80-100); Nucleated Red Blood Cells Absolute Auto 0.000 K/mm3 (0.0-0.012); Nucleated Red Blood Cells Perc 0.0 % (0.0-0.2); Platelet Count Result 292 k/mm3 (150-375); Red Blood Count 4.90 M/mm3 (4.6-6.20); White Blood Count 9.7 K/mm3 (4.5-10.0)
[2025-04-18 12:01] LABS: Alanine Aminotransferase 26 U/L (6-50); Albumin Level 4.1 g/dL (3.5-5.1); Alkaline Phosphatase 39 U/L (38-126); Anion Gap 11 mmol/L (4-12); Aspartate Amino Transferase 41 U/L (17-59); Bilirubin,Total 0.4 mg/dL (0.2-1.3); Blood Urea Nitrogen 39 mg/dL (9-20); Calcium 9.2 mg/dL (8.4-10.2); Carbon Dioxide 24 mmol/L (22-30); Chloride 102 mmol/L (98-107); Estimated CRCL calculation 59 ml/min; Estimated Glomerular Filt Rate 47; Glucose 90 mg/dL (65-110); Magnesium 2.2 mg/dL (1.6-2.3); Potassium 4.3 mmol/L (3.4-5.0); Sodium 137 mmol/L (137-145); Total Protein 8.0 g/dL (6.3-8.2)
[2025-04-18 12:44] LABS: Add Urine Microscopic? YES; Appearance Urine Cloudy (Clear); Glucose Urine UA 3+ mg/dL (Negative); Leukocyte Esterase Ur 2+ LEU/UL (Negative); Need Manual Microscopic Reviewed; Nitrate Urine Negative (Negative); Specific Grav Ur 1.011 (1.001-1.035)
--- NOTE | 2025-04-18 13:07 | ED.WEAKNESS ---
HPI - Weakness General Chief complaint: Dizziness Stated complaint: dizziness Time Seen by Provider: 04/18/25 11:06 History of Present Illness HPI Narrative: 64-year-old male presenting to the emergency department for repeat evaluation after recent discharge. He was discharged yesterday morning with recent concerns for a urinary tract infection and pneumonia. He has a history of diabetes. He felt worse after going home and want to get re-evaluated so came back. Patient is complaining of profound nausea and dizziness and also inability urinate. Still feels like he has an infection. Was otherwise in his normal state of health and denies any new trauma or injury. No fever chills, chest pain, abdominal pain, back pain. Has been taking his antibiotics that he was prescribed upon discharge. He is accompanied by family members who states that he was doing well upon discharge but immediately got home and felt worse and was not doing well this morning. Related Data Home Medications ?Medication ?Instructions ?Recorded ?Confirmed ?Last Taken ?Type albuterol sulfate 90 mcg/actuation 2 puff inhalation Q4H PRN 04/14/25 04/18/25 04/17/25 History aerosol inhaler shortness of breath or wheezing cholecalciferol (vitamin D3) 50 2,000 unit PO DAILY 04/14/25 04/18/25 04/17/25 History mcg (2,000 unit) tablet (Vitamin D3) empagliflozin 25 mg tablet 25 mg PO DAILY 04/14/25 04/18/25 04/17/25 History (Jardiance) fenofibrate micronized 134 mg 134 mg PO DAILY 04/14/25 04/18/25 04/17/25 History capsule glipizide 5 mg tablet, extended 5 mg PO DAILY 04/14/25 04/18/25 04/17/25 History release 24 hr hydrochlorothiazide 25 mg tablet 25 mg PO DAILY 04/14/25 04/18/25 04/17/25 History insulin degludec 200 unit/mL (3 200 unit subcut DAILY 04/14/25 04/18/25 04/17/25 History mL) subcutaneous pen (Tresiba FlexTouch U-200 insulin) insulin lispro 100 unit/mL 70 unit subcut 1700 04/14/25 04/18/25 04/17/25 History subcutaneous pen insulin lispro 100 unit/mL 65 unit subcut 0800,1200 04/14/25 04/18/25 04/17/25 History subcutaneous pen (Humalog KwikPen (U-100) Insulin) lisinopril 40 mg tablet 40 mg PO DAILY 04/14/25 04/18/25 04/17/25 History magnesium 250 mg tablet 250 mg PO DAILY 04/14/25 04/18/25 04/17/25 History mometasone-formoterol HFA 100 2 puff inhalation Q12H 04/14/25 04/18/25 04/17/25 History mcg-5 mcg/actuation aerosol inhaler (Dulera) omega-3 acid ethyl esters 1 gram 2 cap PO BID 04/14/25 04/18/25 04/17/25 History capsule ropinirole 1 mg tablet 1 mg PO DAILY 04/14/25 04/18/25 04/17/25 History ropinirole 2 mg tablet 2 mg PO HS 04/14/25 04/18/25 04/17/25 History semaglutide 0.25 mg or 0.5 mg (2 0.5 mg subcut WEEKLY 04/14/25 04/18/25 04/17/25 History mg/3 mL) subcutaneous pen injector (Ozempic) simvastatin 40 mg tablet 40 mg PO DAILY 04/14/25 04/18/25 04/17/25 History amoxicillin 500 mg capsule 500 mg PO Q8H 04/18/25 04/18/25 04/17/25 History benzonatate 200 mg capsule 200 mg PO Q8H PRN cough 04/18/25 04/18/25 04/17/25 History Allergies Allergy/AdvReac Type Severity Reaction Status Date / Time No Known Allergies Allergy Verified 04/18/25 11:15 Review of Systems Review of Systems: As reviewed above [facility]PI [facility] Past Medical History Medical History Sleep apnea COPD (chronic obstructive pulmonary disease) Hypertension Diabetes Surgical History Surgical History History of knee surgery Meniscus repair Family History Family History Mother Heart disease Social History Social History Social History: Lives at home alone is independent with daily activities. PCP is Dr. Stoddard. Full code. LEIGH ANN is Sarah, sister Smoking packs per day: 2 Smoking cigarettes per day: 40.0 Years smoked: 20 Smoking pack-years: 40.00 Smoking status: Former smoker Alcohol intake: never Substance use: never Do You Feel Safe in your Home?: Yes Lack of Transportation: No Lack of Food: Never True Current Housing: I Have Housing Concerned About Future Housing: No Difficulty Paying Gas/Electric Bills: No Difficulty Paying for Meds: No Currently Unemployed: No Education: High School Diploma/GED Difficulty w/ Childcare or Family Care: No Living arrangements: alone Spiritual care concerns: No Exam Narrative: GENERAL: [Well-appearing, well-nourished, and in no acute distress.] HEAD: [Normocephalic, atraumatic.] EYES: [PERRLA and EOMI.] ENT: Nares clear, no rhinorrhea or epistaxis. Mucous membranes moist. NECK: Supple. CHEST: [Clear to auscultation. No respiratory distress.] HEART: [Regular rate and rhythm]. No murmur heard. [Normal peripheral pulses.] ABDOMEN: [Soft, nondistended], [nontender], [No rigidity or guarding] EXTREMITIES: Normal range of motion. [No edema.] SKIN: Warm, dry, no rash. NEURO: [No focal deficits]. Alert and oriented [x3.] PSYCH: [Normal mood and affect.] Course Vital Signs Vital signs: Vital Signs Pulse Rate 70 04/18/25 11:06 Respiratory Rate 20 04/18/25 11:06 Blood Pressure 137/70 04/18/25 11:06 Pulse Oximetry 97 04/18/25 11:06 Temperature 36.8 C 04/19/25 20:31 Pulse Rate 79 04/19/25 20:31 Respiratory Rate 17 04/19/25 20:31 Blood Pressure 128/70 04/19/25 20:31 Pulse Oximetry 95 04/19/25 20:31 Oxygen Delivery Room Air 04/19/25 20:00 MDM - Weakness MDM Narrative Medical decision making narrative: 64-year-old male with history of diabetes who recently got discharged from the hospital yesterday after being admitted for urinary infection and pneumonia. He went home after feeling improved but felt significantly worse yesterday night and this morning. He feels like he is retaining urine and not able urinate appropriately feeling dizzy and lightheaded. He otherwise appears not any acute distress with normal vital signs with any fever, hypoxia, tachycardia blood pressure concerns. Bladder scan at bedside shows greater than 600 mL of urine and a Cowan catheter was placed with your immediate return of greater than 1200 mL of urine. This was sent out for urinalysis and he was placed on Rocephin. Repeat evaluations with labs and imaging obtained. Patient's workup shows no leukocytosis or significant anemia worse than baseline. Normal platelet count. His creatinine about the same at 1.5 from recent discharge. Cyst urinalysis still with persistent urinary infection, sent for repeat culture. Head CT was ordered with given his symptoms but no acute finding seen. Chest x-ray shows left basilar atelectasis versus pneumonia. EKG shows sinus rhythm. Patient was admitted this time after I had discussions with the mid-level provider covering the hospitalist service. Patient comfortable with this plan and remains on antibiotics at this time. Medical Records Attestation: I reviewed the patient's medical records. Lab Data Attestation: I reviewed the patient's lab results. 04/19/25 05:50 04/19/25 05:50 Labs: Lab Results 04/18/25 04/18/25 04/18/25 Range/Units 11:02 11:29 12:25 WBC 9.7 (4.5-10.0) K/mm3 RBC 4.90 (4.6-6.20) M/mm3 Hgb 12.4 L (14.0-18.0) g/dL Hct 40.0 L (42.0-52.0) % MCV 81.6 (80-100) fl MCH 25.3 L (26-34) pg MCHC 31.0 L (32-36) g/dl RDW 15.5 H (11.5-14.5) % Plt Count 292 (150-375) k/mm3 MPV 9.7 (7.4-10.4) fl Immature Gran % (Auto) 0.9 H (0-0.5) % Neut % (Auto) 77.9 H (45.5-73.1) % Lymph % (Auto) 10.9 L (18.3-44.2) % Coleman % (Auto) 9.0 H (2.6-8.5) % Eos % (Auto) 0.9 (0-4.4) % Baso % (Auto) 0.4 (0.2-1.2) % Lymph # (Auto) 1.06 (0.9-3.2) K/mm3 Coleman # (Auto) 0.9 H (0.1-0.6) K/mm3 Eos # (Auto) 0.1 (0-0.3) K/mm3 Baso # (Auto) 0.0 (0.0-0.1) K/mm3 Abs Immat Gran (auto) 0.09 H (0.00-0.031) K/mm3 Absolute Neuts (auto) 7.6 H (1.3-6.7) K/mm3 Absolute Nucleated RBC 0.000 (0.0-0.012) K/mm3 Nucleated RBC % 0.0 (0.0-0.2) % Sodium 137 (137-145) mmol/L Potassium 4.3 (3.4-5.0) mmol/L Chloride 102 (98-107) mmol/L Carbon Dioxide 24 (22-30) mmol/L Anion Gap 11 (4-12) mmol/L BUN 39 H D (9-20) mg/dL Creatinine 1.50 H (0.7-1.3) mg/dL Estim Creat Clear Calc 59 ml/min Estimated GFR 47 L (59 - ) Glucose 90 (65-110) mg/dL POC Capillary Glucose 72 (65-105) mg/dl Calcium 9.2 (8.4-10.2) mg/dL Magnesium 2.2 (1.6-2.3) mg/dL Total Bilirubin 0.4 (0.2-1.3) mg/dL AST 41 (17-59) U/L ALT 26 (6-50) U/L Alkaline Phosphatase 39 (38-126) U/L Total Protein 8.0 (6.3-8.2) g/dL Albumin 4.1 (3.5-5.1) g/dL Urine Color Yellow (Yellow) Urine Appearance Cloudy H (Clear) Urine pH 5.5 (5.0-9.0) Ur Specific [place] 1.011 (1.001-1.035) Urine Protein Negative (Negative) mg/dL Urine Glucose (UA) 3+ H (Negative) mg/dL Urine Ketones Negative (Negative) mg/dL Ur Blood (Man) Trace (Negative) Urine Nitrate Negative (Negative) Urine Bilirubin Negative (Negative) Urine Urobilinogen 0.2 (<2.0) mg/dL Add Ur Microanalysis Reviewed Leukocyte Esterase Rfl 2+ H (Negative) CATHIE/UL Urine RBC 0-2 (0-2) /hpf Urine WBC 51-100 H (0-3) /hpf Ur Squamous Epith Cells Moderate (Few) /hpf Urine Bacteria None seen /hpf Urine Casts 3-5 Imaging Data Attestation: I personally reviewed and interpreted this imaging study as follows: Discharge Plan Discharge Clinical Impression: Pneumonia, MARIA D (acute kidney injury), Urinary retention, Dizziness UTI (urinary tract infection) Qualifiers: Urinary tract infection type: acute cystitis Hematuria presence: without hematuria Qualified Code(s): N30.00 - Acute cystitis without hematuria Diabetes Qualifiers: Diabetes mellitus type: type 2 Diabetes mellitus senior living insulin use: without senior living use Diabetes mellitus complication status: without complication Qualified Code(s): E11.9 - Type 2 diabetes mellitus without complications Patient Disposition: Still a Patient Condition: Stable
[2025-04-18] MEDS: SODIUM CHLORIDE 0.9% IV 1,000 ML 999 ML IV CONT (13:32)
--- NOTE | 2025-04-18 14:47 | P.HP_ITS ---
H&P: HPI History of Present Illness Date/Time: 04/18/25 14:47 Chief Complaint: Weakness Narrative: Len Botello a 64-year-old male with a history of RORO on CPAP, COPD, hypertension, diabetes who presented to the emergency department on 04/18/2025 with complaints of weakness and dizziness. The patient was just admitted on 04/14/2025 and discharged 1 day ago, 04/17/2025. At that time he again presented with dizziness and weakness. He was found to have urinary retention and acute UTI as well as pneumonia. He was discharged with a course of Levaquin. He was seen by Urology during admission and had a successful void trial and was recommended to be discharged on tamsulosin and finasteride, however it appears he did not receive a prescription for finasteride on discharge. He felt well upon discharge home yesterday and states last night he felt he was in his usual state of health. States he was voiding without difficulty. Unfortunately, this morning he woke up feeling very weak and dizzy. He called his sister for assistance who brought him to the emergency department. On arrival, his vital signs were stable and he is afebrile. WBC 9.7, H&H that the decreased, BUN 39, creatinine 1.5, additional electrolytes stable. He was unable to void in the emergency department aside from a very light trickling stream. A Cowan catheter was placed with 1 L urine output prior to being clamped. RN at bedside reports a total of 2 L ultimate urine output. Head CT was completed no abnormalities. CXR showed unchanged patchy left basilar airspace disease. At the time of my evaluation, the patient continues to endorse significant weakness and dizziness. He denies lightheadedness. Denies headache. No confusion. Denies chest pain or palpitations. Denies nausea, vomiting, fever, or chills. He denies shortness of breath or cough. Denies wheezing. He denies abdominal pain. Reports normal bowel movements and denies constipation. Denies swelling of his extremities. He denies suprapubic pain or pressure and reports he did not have any urge to void prior to Cowan placement. He denies dysuria or hematuria. Review of Systems Review of Systems: All systems reviewed & are unremarkable except as noted in HPI and below [facility] Past Medical History Medical History (Updated 04/18/25 @ 15:02 by Nadia Mares PA-C) Sleep apnea COPD (chronic obstructive pulmonary disease) Hypertension Diabetes Surgical History Surgical History (Updated 04/18/25 @ 15:02 by Nadia Mares PA-C) History of knee surgery Meniscus repair Family History Family History (Updated 04/18/25 @ 15:03 by Nadia Mares PA-C) Mother Heart disease Social History Social History (Updated 04/18/25 @ 15:04 by Nadia Mares PA-C) Social History: Lives at home alone is independent with daily activities. PCP is Dr. Stoddard. Full code. LEIGH ANN is Sarah, sister Smoking packs per day: 2 Smoking cigarettes per day: 40.0 Years smoked: 20 Smoking pack-years: 40.00 Smoking status: Former smoker Alcohol intake: never Substance use: never Do You Feel Safe in your Home?: Yes Lack of Transportation: No Lack of Food: Never True Current Housing: I Have Housing Concerned About Future Housing: No Difficulty Paying Gas/Electric Bills: No Difficulty Paying for Meds: No Currently Unemployed: No Education: High School Diploma/GED Difficulty w/ Childcare or Family Care: No Living arrangements: alone Spiritual care concerns: No Meds Home Medications and Allergies Home Medications ?Medication ?Instructions ?Recorded ?Confirmed ?Type albuterol sulfate 90 mcg/actuation 2 puff inhalation Q4H PRN 04/14/25 04/14/25 History aerosol inhaler shortness of breath or wheezing cholecalciferol (vitamin D3) 50 2,000 unit PO DAILY 04/14/25 04/14/25 History mcg (2,000 unit) tablet (Vitamin D3) dapagliflozin propanediol 10 mg 10 mg PO DAILY 04/14/25 04/14/25 History tablet (Farxiga) empagliflozin 25 mg tablet 25 mg PO DAILY 04/14/25 04/14/25 History (Jardiance) fenofibrate micronized 134 mg 134 mg PO DAILY 04/14/25 04/14/25 History capsule glipizide 5 mg tablet, extended 5 mg PO DAILY 04/14/25 04/14/25 History release 24 hr hydrochlorothiazide 25 mg tablet 25 mg PO DAILY 04/14/25 04/14/25 History insulin degludec 200 unit/mL (3 200 unit subcut DAILY 04/14/25 04/14/25 History mL) subcutaneous pen (Tresiba FlexTouch U-200 insulin) insulin lispro 100 unit/mL 70 unit subcut 1700 04/14/25 04/14/25 History subcutaneous pen insulin lispro 100 unit/mL 65 unit subcut 0800,1200 04/14/25 04/14/25 History subcutaneous pen (Humalog KwikPen (U-100) Insulin) lisinopril 40 mg tablet 40 mg PO DAILY 04/14/25 04/14/25 History magnesium 250 mg tablet 250 mg PO DAILY 04/14/25 04/14/25 History mometasone-formoterol HFA 100 2 puff inhalation Q12H 04/14/25 04/14/25 History mcg-5 mcg/actuation aerosol inhaler (Dulera) omega-3 acid ethyl esters 1 gram 2 cap PO BID 04/14/25 04/14/25 History capsule ropinirole 1 mg tablet 1 mg PO DAILY 04/14/25 04/14/25 History ropinirole 2 mg tablet 2 mg PO HS 04/14/25 04/14/25 History semaglutide 0.25 mg or 0.5 mg (2 0.5 mg subcut WEEKLY 04/14/25 04/14/25 History mg/3 mL) subcutaneous pen injector (Ozempic) simvastatin 40 mg tablet 40 mg PO DAILY 04/14/25 04/14/25 History levofloxacin 250 mg tablet 250 mg PO DAILY #7 tabs 04/17/25 Rx tamsulosin 0.4 mg capsule 0.4 mg PO QHS #30 caps 04/17/25 Rx Allergies Allergy/AdvReac Type Severity Reaction Status Date / Time No Known Allergies Allergy Verified 04/18/25 11:15 Vital Signs Vital Signs - 24 hr 04/18/25 11:06 04/18/25 11:15 04/18/25 12:31 Pulse Rate 70 70 81 Respiratory Rate 20 14 Blood Pressure 137/70 Pulse Oximetry 97 99 Exam Narrative: Neuro: awake, alert and oriented x4, speech clear, no focal neuro deficits noted HEENMT: normocephalic, atraumatic, EOMI, sclerae anicteric, moist oral mucosa Neck: supple, no lymphadenopathy Respiratory: clear to auscultation bilaterally, nonlabored breathing Cardio: regular rate, regular rhythm with S1-S2 Abdomen: protuberant, normoactive bowel sounds, soft, nontender to palpation, no rigidity or guarding : Cowan catheter draining clear Extremities: no edema, erythema, cyanosis, or tenderness to palpation Skin: no rashes or lesions, warm and dry Psych: appropriate mood and affect, judgment and insight intact H&P: Results Labs Labs: Short CBC 04/18/25 Range/Units 11:29 WBC 9.7 (4.5-10.0) K/mm3 Hgb 12.4 L (14.0-18.0) g/dL Hct 40.0 L (42.0-52.0) % Plt Count 292 (150-375) k/mm3 BMP 04/18/25 11:29 Sodium 137 Potassium 4.3 Chloride 102 Carbon Dioxide 24 BUN 39 H D Creatinine 1.50 H Glucose 90 Calcium 9.2 Liver Function 04/18/25 Range/Units 11:29 Total Bilirubin 0.4 (0.2-1.3) mg/dL AST 41 (17-59) U/L ALT 26 (6-50) U/L Alkaline Phosphatase 39 (38-126) U/L Albumin 4.1 (3.5-5.1) g/dL Urine 04/18/25 Range/Units 12:25 Urine Color Yellow (Yellow) Urine Appearance Cloudy H (Clear) Urine pH 5.5 (5.0-9.0) Ur Specific [place] 1.011 (1.001-1.035) Urine Protein Negative (Negative) mg/dL Urine Glucose (UA) 3+ H (Negative) mg/dL Assessment and Plan Assessment and plan (1) Urinary retention: Code(s): R33.9 - Retention of urine, unspecified Status: Acute Assessment and Plan: >1L urinary retention. Recently seen by Urology at last admission 2 days prior, felt to be due to BPH and recommended to begin tamsulosin and finasteride. Patient is only taking tamsulosin. Will add finasteride at this time. Continue Cowan catheter. May consider repeat void trial prior to discharge. He will need close outpatient Urology follow-up. (2) Abnormal urinalysis: Code(s): R82.90 - Unspecified abnormal findings in urine Status: Acute Assessment and Plan: Recently treated with Levaquin for UTI, culture with growth of Staph epidermidis, may have been contaminant. UA again abnormal upon admission, however patient is asymptomatic aside from urinary retention. He received a dose of IV Rocephin on admission which will be continued pending urine culture given degree of retention (3) Pneumonia: Code(s): J18.9 - Pneumonia, unspecified organism Status: Acute Assessment and Plan: CXR with findings of left basal atelectasis versus pneumonia. Patient is afebrile and has no respiratory symptoms. Lungs are clear to auscultation. Favor atelectasis. Begin incentive spirometry. Will evaluate MRSA of nares as well as urine antigens (4) MARIA D (acute kidney injury): Code(s): N17.9 - Acute kidney failure, unspecified Status: Acute Assessment and Plan: No prior labs to determine baseline. Creatinine 1.5 on admission. Ranged from 1.26-1.63 during recent admission. Received a liter of fluids upon arrival to ER. Will repeat BMP in the morning (5) Anemia: Code(s): D64.9 - Anemia, unspecified Status: Acute Assessment and Plan: Mild and stable consistent with last admission. No evidence of acute blood loss. Monitor H&H (6) Weakness: Code(s): R53.1 - Weakness Status: Acute Assessment and Plan: Etiology unclear. Resolved at last admission and recurred almost immediately following discharge. Will check TSH, B12, folate. Check orthostatics. Obtain PT/OT eval. (7) Diabetes: Qualifiers: Diabetes mellitus type: type 2 Diabetes mellitus intermediate insulin use: without exterminator use Diabetes mellitus complication status: without complication Qualified Code(s): E11.9 - Type 2 diabetes mellitus without complications Code(s): E11.9 - Type 2 diabetes mellitus without complications Status: Chronic Assessment and Plan: A1c is 8.5. Random glucose is stable. Continue home medications and insulin with 20% reduction as well as high-dose sliding scale. Improvement hypoglycemic protocol. Diabetic diet. (8) Hypertension: Qualifiers: Hypertension type: primary hypertension Qualified Code(s): I10 - Essential (primary) hypertension Code(s): I10 - Essential (primary) hypertension Status: Chronic Assessment and Plan: Blood pressure is stable and well controlled. Continue home lisinopril and hydrochlorothiazide Plan Continue CPAP titrated to home settings during admission Resume home medications once medication reconciliation is complete Quality VTE Prophylaxis VTE prophylaxis: mechanical ordered Hospitalist MIPS Advance Care Plan I have confirmed that the patient's Advanced Care Plan is present, code status is documented, or surrogate decision maker is listed in patient medical record.: Yes Medication Reconciliation I have utilized all available resources to obtain, update and review the patients current medications (includes all prescriptions, OTC, herbals, cannabis, and nutritional supplements).: Yes
[2025-04-18 17:47] LABS: MRSA (PCR) NOT DETECTED (NOT DETECTE)
--- NOTE | 2025-04-18 18:33 | P.PNCROSS_ITS ---
Event Note Event Note Event Note: Once home medications were marked has confirmed I attempted to reconcile. Kadeem tate, I quickly noticed that patient's diabetes treatment was very excessive. On home medication list patient had Jardiance 25 mg, Farxiga 10 mg, glipizide XL 5 mg, Tresiba 200 units daily, with Insulin lispro Quick Pen 65 units with breakfast, 65 units with lunch and 70 units with supper as well as Ozempic 0.5 mg weekly. I contacted the RN who stated that the patient told her he was taking these medications when she did the home med rec. I then contacted the pharmacist who stated that actually the Glipizide XL is 5 mg BID and the lispro is 65/65/75 and both Farxiga and Jardiance were written by the same provider and filled 4 days apart for a 90 day prescription of each. Farxiga was filled on 03/07/25 and Jardiance on 03/03/25. Patient told RN that he takes both. While A1c is elevated at 8.5 on 04/15/25, the cause of patient's weakness on admission may very well be related to low blood sugars. These medications are prescribed by [facility] endocrinology in [place], Dr. Shandra Nelson, Dr. Bryan Kate (no longer there) and JUDD Lomax. I recommend calling the office to discuss follow up and acute management of patient's severe weakness and hypoglycemia on admission. For now Farxiga is being discontinued (we don't stock at this hospital) and Jardiance continued. Patient took Ozempic already this week. Glipizide XL 5 mg (daily instead of BID) is currently on hold due to hypoglycemia on arrival to the floor (glucose 64.) Similarly, smaller dose of basal and meal time insulin ordered for now though may have to promptly increase tomorrow. Since we do not stock Tresiba, we would substitute glargine (Lantus) but split the dosing evening Q12HRs if greater than 40 units daily. Patient likely does not eat a very controlled diet at home causing massive swings in glucose from very low to very high which in turn has led to very high doses of medication for blood sugar control. life educator consult and File Conversion Operator consult ordered.
[2025-04-18] MEDS: TAMSULOSIN HCL 0.4 MG CAPSULE PO (22:58)
[2025-04-18] MEDS: INSULIN GLARGINE (*BKC) 100 UNITS/ML 20 UNITS SUB-Q (22:58)
[2025-04-19] VITALS (8 sets, daily range): BP systolic 110–137; BP diastolic 50–70; PULSE 65–86; RESP 17–21; TEMP 36.1–36.8; O2SAT 94–100
[2025-04-19 06:28] LABS: Hematocrit 38.5 % (42.0-52.0); Hemoglobin 11.7 g/dL (14.0-18.0); Immature Granulocyte Percent A 0.7 % (0-0.5); Lymphocytes Absolute Auto 1.48 K/mm3 (0.9-3.2); Mean Corpuscular HGB Conc 30.4 g/dl (32-36); Mean Corpuscular Hemoglobin 25.3 pg (26-34); Mean Corpuscular Volume 83.2 fl (80-100); Nucleated Red Blood Cells Absolute Auto 0.000 K/mm3 (0.0-0.012); Nucleated Red Blood Cells Perc 0.0 % (0.0-0.2); Platelet Count Result 294 k/mm3 (150-375); Red Blood Count 4.63 M/mm3 (4.6-6.20); White Blood Count 8.6 K/mm3 (4.5-10.0)
[2025-04-19 06:44] LABS: Anion Gap 9 mmol/L (4-12); Blood Urea Nitrogen 29 mg/dL (9-20); Calcium 9.2 mg/dL (8.4-10.2); Carbon Dioxide 24 mmol/L (22-30); Chloride 105 mmol/L (98-107); Estimated CRCL calculation 72 ml/min; Estimated Glomerular Filt Rate 60; Glucose 128 mg/dL (65-110); Potassium 4.2 mmol/L (3.4-5.0); Sodium 138 mmol/L (137-145)
--- NOTE | 2025-04-19 07:02 | P.PNIM_ITS ---
Progress Note: A&P Assessment and Plan (1) Abnormal urinalysis: Code(s): R82.90 - Unspecified abnormal findings in urine Status: Acute Assessment and Plan: Recently treated with Levaquin for UTI, culture with growth of Staph epidermidis, may have been contaminant. UA again abnormal upon admission, however patient is asymptomatic aside from urinary retention. - UA: cloudy with 3+ glucose, negative nitrates, 2+ leukocytes, 51-100 WBC, no bactera. Moderate squamous cells, possible contaminant. - UC ordered - previous micro reviewed 04/17: staph epidermidis - started on IV Rocephin on 04/18 which will be continued pending urine culture given degree of retention (2) Urinary retention: Code(s): R33.9 - Retention of urine, unspecified Status: Acute Assessment and Plan: Prior admission from 04/14-04/17 with urinary retention. Seen by Urology during admission and had a successful void trial and was recommended to be discharged on tamsulosin and finasteride, however it appears he did not receive a prescription for finasteride on discharge. Unable to void in ER, molina placed and >1L urinary retention noted. Likely due to BPH and prior urology consult recommended tamsulosin and finasteride. Continue tamsulosin and finasteride Continue Molina catheter. May consider repeat void trial prior to discharge. Close outpatient Urology follow-up. (3) MARIA D (acute kidney injury): Code(s): N17.9 - Acute kidney failure, unspecified Status: Acute Assessment and Plan: No prior labs to determine baseline. Creatinine 1.5 on admission. Ranged from 1.26-1.63 during recent admission. Received a liter of fluids upon arrival to ER. Lisinopril and HCTZ placed on hold for MARIA D on admission Avoid nephrotoxic medications Renally dose medications Monitor I/O BUN/Cr WNL. Continue to monitor. Likely resume antihypertensives tomorrow. Blood pressures remain stable. (4) Pneumonia: Code(s): J18.9 - Pneumonia, unspecified organism Status: Acute Assessment and Plan: CXR: left basilar atelectasis or pneumonia Recent admission from 04/14-04/17/2025 for dizziness and weakness and was found to have urinary retention,acute UTI, and pneumonia. Discharged on Levaquin, did not complete course. Patient is afebrile and has no respiratory symptoms. Lungs are clear to auscultation. Favor atelectasis. 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 Random glucose is stable. Followed by [facility] endocrinology in [place], Dr. Shandra Nelson and JUDD Lomax. Home medication list has patient on Jardiance 25 mg, Farxiga 10 mg, glipizide XL 5 mg, Tresiba 200 units daily, with Insulin lispro Quick Pen 65 units with breakfast, 65 units with lunch and 70 units with supper as well as Ozempic 0.5 mg weekly. Prior provider spoke with pharmacist who stated that actually the Glipizide XL is 5 mg BID and the lispro is 65/65/75 and both Farxiga and Jardiance were written by the same provider and filled 4 days apart for a 90 day prescription of each. Patient told RN that he takes both. Patient's weakness on admission may be related to low blood sugars. Patient states that his home sugars are typically lower 100s but will occasionally drop into the 60s resulting in dizziness and weakness. Farxiga is being discontinued (we don't stock at this hospital). Jardiance continued. Patient took Ozempic already this week. Glipizide XL 5 mg (daily instead of BID) is currently on hold due to hypogly cemia on arrival to the floor (glucose 64.) Smaller dose of basal and meal time insulin ordered. Currently lispro 10 units TIDWM. We do not stock Tresiba, substitute Lantus at lower dose. Currently 20 units HS. Continue hypoglycemia protocol Continue POC blood glucose ACHS Call made to patients [facility] newsperson Dr. Nelson to discuss patients diabetes regimen. Spoke with RN at his office and information left for call back. (6) Weakness: Code(s): R53.1 - Weakness Status: Acute Assessment and Plan: Etiology unclear. Resolved at last admission and recurred almost immediately following discharge. TSH, B12, folate WNL Orthostatics negative PT/OT eval ordered Patient's weakness on admission may be related to low blood sugars. Patient states that his home sugars are typically lower 100s but will occasionally drop into the 60s resulting in dizziness and weakness. See plan for diabetes below. (7) Hypertension: Qualifiers: Hypertension type: primary hypertension Qualified Code(s): I10 - Essential (primary) hypertension Code(s): I10 - Essential (primary) hypertension Status: Chronic Assessment and Plan: Chronic, continue home mediations - lisinopril and hydrochlorothiazide on hold for MARIA D BUN/Cr WNL. Likely resume antihypertensives tomorrow. Blood pressures remain stable. (8) Anemia: Code(s): D64.9 - Anemia, unspecified Status: Acute Assessment and Plan: Normocytic anemia. Stable consistent with last admission. No evidence of acute blood loss. Monitor H&H Time Spent With Patient Time with patient: 25 - 35 minutes Subjective Date/time seen: 04/19/25 07:02 Interval history: 64-year-old male with a history of RORO on CPAP, COPD, hypertension, diabetes who presented to the hospital with complaints of weakness and dizziness. Recent admission from 04/14-04/17/2025 for dizziness and weakness and was found to have urinary retention,acute UTI, and pneumonia. Discharged on Levaquin. He was seen by Urology during admission and had a successful void trial and was recommended to be discharged on tamsulosin and finasteride, however it appears he did not receive a prescription for finasteride on discharge. Patient is pleasant sitting up on the side of bed. He denies dizziness and lightheadedness. He has no complaints denying chest pain, shortness of breath, palpitations, nausea/vomiting and abdominal pain. Patient's weakness on admission may be related to low blood sugars. Patient states that his home sugar s are typically lower 100s but will occasionally drop into the 60s resulting in dizziness and weakness. Call made to patients [facility] newsperson Dr. Nelson to discuss patients diabetes regimen. Spoke with RN at his office and information left for call back. Review of Systems Review of Systems: All systems reviewed & are unremarkable except as noted in HPI and below Exam Narrative: AF HR 86 RR 18 Spo2 99 BP 137/70 General: male in no acute respiratory distress who is nontoxic appearing, sitting up on side of bed HEENT: Normocephalic. Atraumatic. Extraocular movement intact. Sclera clear and anicteric. No facial asymmetry. Chest: Lungs are clear to auscultation bilaterally. No wheezes or crackles. CV: Heart was regular rate and rhythm. S1/S2. No murmurs, gallops, or rubs. Abd: Abdomen was soft. Nontender. Nondistended. Positive bowel sounds. : Molina in place. Ext: No clubbing, cyanosis, or edema. DP pulses bilaterally. Neuro: Patient is alert and oriented x4. Speech is clear. Objective Data Vital Signs Vital Signs: Vital Signs - 24 hr 04/18/25 11:06 04/18/25 11:15 04/18/25 12:31 Temperature Pulse Rate 70 70 81 Respiratory Rate 20 14 Blood Pressure 137/70 Pulse Oximetry 97 99 Oxygen Delivery 04/18/25 15:01 04/18/25 15:03 04/18/25 16:50 Temperature Pulse Rate 75 Respiratory Rate 15 Blood Pressure 117/63 Pulse Oximetry 99 Oxygen Delivery Room Air 04/18/25 22:00 04/18/25 22:15 04/18/25 23:00 Temperature 98.2 F Pulse Rate 69 Respiratory Rate 18 16 Blood Pressure 123/70 129/58 L Pulse Oximetry 91 Oxygen Delivery CPAP 04/18/25 23:05 04/19/25 06:00 Temperature 98.1 F Pulse Rate 65 Respiratory Rate 18 Blood Pressure 143/88 H 121/66 Pulse Oximetry 99 Oxygen Delivery Intake/Output Intake/Output: Intake & Output 04/16/25 04/17/25 04/18/25 04/19/25 23:59 23:59 23:59 23:59 Intake Total 1290 550 Output Total 100 2000 Balance 1190 -1450 Meds/Results Medications: Active Medications Generic Name Dose Route Start Last Admin Trade Name Freq PRN Reason Stop Dose Admin Acetaminophen 650 mg 04/18/25 13:13 Acetaminophen 325 Mg Tablet PO Q4H PRN Mild Pain (1-3) or Fever Albuterol 2 puff 04/18/25 18:07 Albuterol Sulfate (*Sp) Aerosol 1 Puff INHALATION Q4HRT PRN shortness of breath or wheezin Benzonatate 200 mg 04/18/25 18:19 Benzonatate 100 Mg Capsule PO Q8H PRN cough Dextrose 12.5 gm 04/18/25 15:23 Dextrose 50% 25 Gm/50 Ml Syringe IV PUSH PRN PRN Hypoglycemia Protocol Empagliflozin 25 mg 04/19/25 09:00 Empagliflozin 25 Mg Tablet PO DAILY [facility] Fenofibrate 145 mg 04/19/25 09:00 Fenofibrate Nanocrystallized 145 Mg Tablet PO QAM [facility] Finasteride 5 mg 04/19/25 09:00 Finasteride 5 Mg Tablet PO QAM [facility] Glipizide 5 mg 04/19/25 09:00 Glipizide Xl 5 Mg Tabcr PO DAILY [facility] Glucagon 1 mg 04/18/25 15:23 Glucagon For Inj 1 Mg Vial IM PRN PRN Hypoglycemia Protocol Glucose 15 gm 04/18/25 15:23 Glucose Oral Gel 15 Gm Of Glucse In 37.5 Gm Tube PO PRN PRN Hypoglycemia Protocol Ceftriaxone Sodium 1 gm in 50 mls @ 100 mls/hr 04/19/25 13:00 Rocephin 1 Gm/Ns 50 Ml IVPB Q24H [facility] Dextrose 1,000 mls @ 100 mls/hr 04/18/25 15:23 Dextrose 5% 1,000 Ml IVPB PRN PRN Hypoglycemia Protocol Insulin Aspart 10 units 04/18/25 17:00 04/18/25 17:04 Insulin Aspart (*Bkc) 100 Units/Ml SUB-Q Not Given TIDWM [facility] Insulin Aspart 4 - 8 units 04/19/25 08:00 Insulin Aspart (*Bkc) 100 Units/Ml SUB-Q TIDWM [facility] Protocol Insulin Glargine 20 units 04/18/25 21:00 04/18/25 22:58 Insulin Glargine (*Bkc) 100 Units/Ml SUB-Q 20 units HS [facility] Administration Magnesium Oxide 200 mg 04/19/25 09:00 Magnesium Oxide 200 Mg Tablet PO DAILY [facility] Ondansetron HCl 4 mg 04/18/25 13:13 Ondansetron Inj 4 Mg/2 Ml Vial IV PUSH Q4H PRN Nausea Ropinirole HCl 2 mg 04/18/25 21:00 04/18/25 22:58 Ropinirole Hcl 1 Mg Tablet PO 2 mg HS [facility] Administration Ropinirole HCl 1 mg 04/19/25 09:00 Ropinirole Hcl 1 Mg Tablet PO DAILY [facility] Fluticasone/Salmeterol 2 puff 04/18/25 21:00 Fluticasone/Salmeterol 115-21 Mcg Inhaler 1 Puff INHALATION Q12HR [facility] Simvastatin 40 mg 04/19/25 09:00 Simvastatin 20 Mg Tablet PO DAILY [facility] Tamsulosin HCl 0.4 mg 04/18/25 21:00 04/18/25 22:58 Tamsulosin Hcl 0.4 Mg Capsule PO 0.4 mg HS [facility] Administration Vitamin D 2,000 mcg 04/19/25 09:00 Cholecalciferol (Vitamin D3) 125 Mcg (5,000 Units) Tablet PO DAILY [facility] Radiology Results: ITS Impressions Head CT 04/18/25 12:07 Impression: No significant abnormality seen. Chest X-Ray 04/18/25 12:14 Impression: Left basilar atelectasis or pneumonia. Correlate clinically. Labs Labs: Laboratory Results - last 24 hr 04/18/25 04/18/25 04/18/25 11:02 11:29 12:25 WBC 9.7 RBC 4.90 Hgb 12.4 L Hct 40.0 L MCV 81.6 MCH 25.3 L MCHC 31.0 L RDW 15.5 H Plt Count 292 MPV 9.7 Immature Gran % (Auto) 0.9 H Neut % (Auto) 77.9 H Lymph % (Auto) 10.9 L [place] % (Auto) 9.0 H Eos % (Auto) 0.9 Baso % (Auto) 0.4 Lymph # (Auto) 1.06 [place] # (Auto) 0.9 H Eos # (Auto) 0.1 Baso # (Auto) 0.0 Abs Immat Gran (auto) 0.09 H Absolute Neuts (auto) 7.6 H Absolute Nucleated RBC 0.000 Nucleated RBC % 0.0 Sodium 137 Potassium 4.3 Chloride 102 Carbon Dioxide 24 Anion Gap 11 BUN 39 H D Creatinine 1.50 H Estim Creat Clear Calc 59 Estimated GFR 47 L Glucose 90 POC Capillary Glucose 72 Calcium 9.2 Magnesium 2.2 Total Bilirubin 0.4 AST 41 ALT 26 Alkaline Phosphatase 39 Total Protein 8.0 Albumin 4.1 Urine Color Yellow Urine Appearance Cloudy H Urine pH 5.5 Ur Specific [place] 1.011 Urine Protein Negative Urine Glucose (UA) 3+ H Urine Ketones Negative Ur Blood (Man) Trace Urine Nitrate Negative Urine Bilirubin Negative Urine Urobilinogen 0.2 Add Ur Microanalysis Reviewed Leukocyte Esterase Rfl 2+ H Urine RBC 0-2 Urine WBC 51-100 H Ur Squamous Epith Cells Moderate Urine Bacteria None seen Urine Casts 3-5 Nasal MRSA (PCR) 04/18/25 04/18/25 04/18/25 16:22 16:25 16:45 WBC RBC Hgb Hct MCV MCH MCHC RDW Plt Count MPV Immature Gran % (Auto) Neut % (Auto) Lymph % (Auto) [place] % (Auto) Eos % (Auto) Baso % (Auto) Lymph # (Auto) [place] # (Auto) Eos # (Auto) Baso # (Auto) Abs Immat Gran (auto) Absolute Neuts (auto) Absolute Nucleated RBC Nucleated RBC % Sodium Potassium Chloride Carbon Dioxide Anion Gap BUN Creatinine Estim Creat Clear Calc Estimated GFR Glucose POC Capillary Glucose 64 L 82 Calcium Magnesium Total Bilirubin AST ALT Alkaline Phosphatase Total Protein Albumin Urine Color Urine Appearance Urine pH Ur Specific [place] Urine Protein Urine Glucose (UA) Urine Ketones Ur Blood (Man) Urine Nitrate Urine Bilirubin Urine Urobilinogen Add Ur Microanalysis Leukocyte Esterase Rfl Urine RBC Urine WBC Ur Squamous Epith Cells Urine Bacteria Urine Casts Nasal MRSA (PCR) Not detected 04/18/25 04/19/25 21:17 05:50 WBC 8.6 RBC 4.63 Hgb 11.7 L Hct 38.5 L MCV 83.2 MCH 25.3 L MCHC 30.4 L RDW 15.8 H Plt Count 294 MPV 9.9 Immature Gran % (Auto) 0.7 H Neut % (Auto) 68.6 Lymph % (Auto) 17.3 L [place] % (Auto) 9.9 H Eos % (Auto) 3.0 Baso % (Auto) 0.5 Lymph # (Auto) 1.48 [place] # (Auto) 0.9 H Eos # (Auto) 0.3 Baso # (Auto) 0.0 Abs Immat Gran (auto) 0.06 H Absolute Neuts (auto) 5.9 Absolute Nucleated RBC 0.000 Nucleated RBC % 0.0 Sodium 138 Potassium 4.2 Chloride 105 Carbon Dioxide 24 Anion Gap 9 BUN 29 H D Creatinine 1.22 Estim Creat Clear Calc 72 Estimated GFR 60 Glucose 128 H POC Capillary Glucose 154 H Calcium 9.2 Magnesium Total Bilirubin AST ALT Alkaline Phosphatase Total Protein Albumin Urine Color Urine Appearance Urine pH Ur Specific [place] Urine Protein Urine Glucose (UA) Urine Ketones Ur Blood (Man) Urine Nitrate Urine Bilirubin Urine Urobilinogen Add Ur Microanalysis Leukocyte Esterase Rfl Urine RBC Urine WBC Ur Squamous Epith Cells Urine Bacteria Urine Casts Nasal MRSA (PCR) Quality VTE Prophylaxis VTE prophylaxis: mechanical ordered
[2025-04-19 07:12] LABS: Thyroid Stimulating Hormone Reflex 0.933 uIU/mL (0.465-4.68)
[2025-04-19 07:33] LABS: Vitamin B12 890.0 pg/mL (239-931)
[2025-04-19] MEDS: FLUTICASONE/SALMETEROL 115-21 MCG INHALER 1 PUFF 2 PUFF INHALATION ×2 (08:36→19:59)
[2025-04-19] MEDS: SIMVASTATIN 20 MG TABLET 40 MG PO (08:44)
[2025-04-19] MEDS: FENOFIBRATE NANOCRYSTALLIZED 145 MG TABLET PO (08:45)
[2025-04-19] MEDS: FINASTERIDE 5 MG TABLET PO (08:45)
[2025-04-19] MEDS: EMPAGLIFLOZIN 25 MG TABLET PO (08:45)
[2025-04-19] MEDS: MAGNESIUM OXIDE 200 MG TABLET PO (08:45)
[2025-04-19] MEDS: INSULIN ASPART (*BKC) 100 UNITS/ML 10 UNITS SUB-Q ×3 (08:46→17:19)
[2025-04-19] MEDS: CHOLECALCIFEROL (VITAMIN D3) 125 MCG (5,000 UNITS) TABLET 2000 MCG PO (08:53)
[2025-04-19 09:22] LABS: Influenza A QL RT-PCR Negative (Negative); Influenza B QL RT-PCR Negative (Negative); RSV RNA, RT-PCR Negative (Negative); SARS-CoV-2 RNA PCR Negative (Negative)
--- NOTE | 2025-04-19 10:38 | PCCDE ---
Discussed patient status with nurse, Mary Owusu, and the numerous medications the patient is taking. Patient follows with [facility] Endocrinology and monitors blood glucose 3 times per day. Sherron, Hospitalist, is evaluating and adjusting diabetes medications as needed. Dietitians also following patient.
[2025-04-19] MEDS: TAMSULOSIN HCL 0.4 MG CAPSULE PO (20:55)
[2025-04-19] MEDS: INSULIN GLARGINE (*BKC) 100 UNITS/ML 20 UNITS SUB-Q (20:55)
[2025-04-20 03:30] VITALS: PULSE 69; RESP 19; O2SAT 96
[2025-04-20 05:31] VITALS: BP 124/75; PULSE 68; RESP 16; TEMP 36.6; O2SAT 94
[2025-04-20] MEDS: SIMVASTATIN 20 MG TABLET 40 MG PO (07:48)
[2025-04-20] MEDS: EMPAGLIFLOZIN 25 MG TABLET PO (07:48)
[2025-04-20] MEDS: FENOFIBRATE NANOCRYSTALLIZED 145 MG TABLET PO (07:49)
[2025-04-20] MEDS: CHOLECALCIFEROL (VITAMIN D3) 25 MCG (1,000 UNITS) TABLET 50 MCG PO (07:49)
[2025-04-20] MEDS: FINASTERIDE 5 MG TABLET PO (07:49)
[2025-04-20] MEDS: MAGNESIUM OXIDE 200 MG TABLET PO (07:49)
[2025-04-20] MEDS: FLUTICASONE/SALMETEROL 115-21 MCG INHALER 1 PUFF 2 PUFF INHALATION ×2 (08:17→20:19)
[2025-04-20 08:20] VITALS: PULSE 76; RESP 16; O2SAT 91
[2025-04-20] MEDS: INSULIN ASPART (*BKC) 100 UNITS/ML 10 UNITS SUB-Q ×3 (08:32→17:08)
--- NOTE | 2025-04-20 09:46 | PM.IMPN ---
Progress Note: A&P Assessment and Plan (1) Abnormal urinalysis: Code(s): R82.90 - Unspecified abnormal findings in urine Status: Acute Assessment and Plan: Recently treated with Levaquin for UTI, culture with growth of Staph epidermidis, may have been contaminant. UA again abnormal upon admission, however patient is asymptomatic aside from urinary retention. - UA: cloudy with 3+ glucose, negative nitrates, 2+ leukocytes, 51-100 WBC, no bactera. Moderate squamous cells, possible contaminant. - UC pending - previous micro reviewed 04/14: staph epidermidis - started on IV Rocephin on 04/18 which will be continued pending urine culture given degree of retention (2) Urinary retention: Code(s): R33.9 - Retention of urine, unspecified Status: Acute Assessment and Plan: Prior admission from 04/14-04/17 with urinary retention. Seen by Urology during admission and had a successful void trial and was recommended to be discharged on tamsulosin and finasteride, however it appears he did not receive a prescription for finasteride on discharge. Unable to void in ER, molina placed and >1L urinary retention noted. Likely due to BPH and prior urology consult recommended tamsulosin and finasteride. Continue tamsulosin and finasteride Will do a voiding trial today. PRN bladder scans. If unsuccessful will replace molina. Close outpatient Urology follow-up. (3) MARIA D (acute kidney injury): Code(s): N17.9 - Acute kidney failure, unspecified Status: Acute Assessment and Plan: No prior labs to determine baseline. Creatinine 1.5 on admission. Ranged from 1.26-1.63 during recent admission. Received a liter of fluids upon arrival to ER. Lisinopril and HCTZ placed on hold for MARIA D on admission Avoid nephrotoxic medications Renally dose medications Monitor I/O BUN/Cr WNL. Continue to monitor. Blood pressures remain stable despite being off antihypertensives, continue to monitor. (4) Pneumonia: Code(s): J18.9 - Pneumonia, unspecified organism Status: Acute Assessment and Plan: CXR: left basilar atelectasis or pneumonia Recent admission from 04/14-04/17/2025 for dizziness and weakness and was found to have urinary retention,acute UTI, and pneumonia. Discharged on Levaquin, did not complete course. Patient is afebrile and has no respiratory symptoms. Lungs are clear to auscultation. Favor atelectasis. - Viral PCR: Flu/COVID/RSV negative - MRSA negative - legionella, mycoplasma and pneumococcal ordered - no supplemental O2 requirement - Incentive spirometer - Monitor vital signs, I&Os, neuro status and patient is a fall risk - Follow WBC, serum electrolytes, temperature curves and cultures Patient continues to denies shortness of breath and cough. Lungs remain clear on auscultation. (5) Diabetes: Qualifiers: Diabetes mellitus complication status: without complication Diabetes mellitus care home insulin use: without superintendent container terminal use Diabetes mellitus type: type 2 Qualified Code(s): E11.9 - Type 2 diabetes mellitus without complications Code(s): E11.9 - Type 2 diabetes mellitus without complications Status: Chronic Assessment and Plan: A1c is 8.5. Random glucose is stable. Followed by [facility] endocrinology in [place], Dr. Shandra Nelson and JUDD Lomax. Home medication list has patient on Jardiance 25 mg, Farxiga 10 mg, glipizide XL 5 mg, Tresiba 200 units daily, with Insulin lispro Quick Pen 65 units with breakfast, 65 units with lunch and 70 units with supper as well as Ozempic 0.5 mg weekly. Prior provider spoke with pharmacist who stated that actually the Glipizide XL is 5 mg BID and the lispro is 65/65/75 and both Farxiga and Jardiance were written by the same provider and filled 4 days apart for a 90 day prescription of each. Patient told RN that he takes both. Patient's weakness on admission may be related to low blood sugars. Patient states that his home sugars are typically lower 100s but will occasionally drop into the 60s resulting in dizziness and weakness. Farxiga is being discontinued (we don't stock at this hospital). Jardiance continued. Patient took Ozempic already this week. Glipizide XL 5 mg (daily instead of BID) is currently on hold due to hypoglycemia on arrival to the floor (glucose 64.) Smaller dose of basal and meal time insulin ordered. Currently lispro 10 units TIDWM. We do not stock Tresiba, substitute Lantus at lower dose. Currently 20 units HS. Continue hypoglycemia protocol Continue POC blood glucose [facility] 04/19: Spoke with Lizbeth VARGHESE at [facility] endocrinology. She states patient saw Annamaria [employer] on 02/04. No medications were changed at that time. Patient was on glipizide 5 mg BID, Farxiga 10 mg daily, ozempic 0.25 mg (now at 0.5mg), Tresiba 200 units HS, and novolog 65 units with breakfast, 65 units with lunch, and 70 units with dinner. Discussed with Lizbeth that patient has been experiencing hypoglycemia on this regimen and she states that she will discuss with the [employer] and have her call me back. Patient remains on decreased regimen at this time with stable glucose levels. Will need medication adjustments at time of discharge. (6) Weakness: Code(s): R53.1 - Weakness Status: Acute Assessment and Plan: Etiology unclear. Resolved at last admission and recurred almost immediately following discharge. TSH, B12, folate WNL Orthostatics negative PT/OT eval ordered Patient's weakness on admission may be related to low blood sugars. Patient states that his home sugars are typically lower 100s but will occasionally drop into the 60s resulting in dizziness and weakness. See plan for diabetes below. Resolved. (7) Hypertension: Qualifiers: Hypertension type: primary hypertension Qualified Code(s): I10 - Essential (primary) hypertension Code(s): I10 - Essential (primary) hypertension Status: Chronic Assessment and Plan: Chronic - lisinopril and hydrochlorothiazide remain on hold as blood pressures remain stable despite being off of them - continue to monitor (8) Anemia: Code(s): D64.9 - Anemia, unspecified Status: Acute Assessment and Plan: Normocytic anemia. Stable consistent with last admission. No evidence of acute blood loss. Monitor H&H Time Spent With Patient Time with patient: 25 - 35 minutes Subjective Date/time seen: 04/20/25 09:46 Interval history: 64-year-old male with a history of RORO on CPAP, COPD, hypertension, diabetes who presented to the hospital with complaints of weakness and dizziness. Recent admission from 04/14-04/17/2025 for dizziness and weakness and was found to have urinary retention,acute UTI, and pneumonia. Discharged on Levaquin. He was seen by Urology during admission and had a successful void trial and was recommended to be discharged on tamsulosin and finasteride, however it appears he did not receive a prescription for finasteride on discharge. Patient is pleasant sitting comfortably on the side of the bed. He has no complaints denying chest pain, palpitations, nausea/vomiting, shortness a breath, abdominal pain, and dizziness/lightheadedness/weakness. Review of Systems Review of Systems: All systems reviewed & are unremarkable except as noted in HPI and below Exam Narrative: AF HR 82 RR 16 SpO2 98 BP 128/81 General: male in no acute respiratory distress who is nontoxic appearing, sitting up on side of bed HEENT: Normocephalic. Atraumatic. Extraocular movement intact. Sclera clear and anicteric. No facial asymmetry. Chest: Lungs are clear to auscultation bilaterally. No wheezes or crackles. CV: Heart was regular rate and rhythm. S1/S2. No murmurs, gallops, or rubs. Abd: Abdomen was soft. Nontender. Nondistended. Positive bowel sounds. : Molina in place, plan for voiding trial today. Ext: No clubbing, cyanosis, or edema. DP pulses bilaterally. Neuro: Patient is alert and oriented x4. Speech is clear. Objective Data Vital Signs Vital Signs: Vital Signs - 24 hr 04/19/25 14:00 04/19/25 20:00 04/19/25 20:00 Temperature 97.0 F L Pulse Rate 77 Respiratory Rate 18 Blood Pressure 110/50 L Pulse Oximetry 94 96 Oxygen Delivery Room Air Room Air 04/19/25 20:31 04/19/25 22:15 04/20/25 03:30 Temperature 98.3 F Pulse Rate 79 80 69 Respiratory Rate 17 21 H 19 Blood Pressure 128/70 Pulse Oximetry 95 97 96 Oxygen Delivery CPAP CPAP 04/20/25 05:31 04/20/25 08:00 04/20/25 08:20 Temperature 97.8 F Pulse Rate 68 Respiratory Rate 16 Blood Pressure 124/75 Pulse Oximetry 94 91 Oxygen Delivery Room Air Room Air 04/20/25 08:20 04/20/25 08:25 Temperature Pulse Rate 76 Respiratory Rate 16 Blood Pressure Pulse Oximetry Oxygen Delivery Room Air Intake/Output Intake/Output: Intake & Output 04/17/25 04/18/25 04/19/25 04/20/25 23:59 23:59 23:59 23:59 Intake Total 1290 1270 580 Output Total 100 6300 3150 Balance 1190 -5030 -2570 Meds/Results Medications: Active Medications Generic Name Dose Route Start Last Admin Trade Name Freq PRN Reason Stop Dose Admin Acetaminophen 650 mg 04/18/25 13:13 Acetaminophen 325 Mg Tablet PO Q4H PRN Mild Pain (1-3) or Fever Albuterol 2 puff 04/18/25 18:07 Albuterol Sulfate (*Sp) Aerosol 1 Puff INHALATION Q4HRT PRN shortness of breath or wheezin Benzonatate 200 mg 04/18/25 18:19 Benzonatate 100 Mg Capsule PO Q8H PRN cough Dextrose 12.5 gm 04/18/25 15:23 Dextrose 50% 25 Gm/50 Ml Syringe IV PUSH PRN PRN Hypoglycemia Protocol Empagliflozin 25 mg 04/19/25 09:00 04/20/25 07:48 Empagliflozin 25 Mg Tablet PO 25 mg DAILY NATASHA Administration Fenofibrate 145 mg 04/19/25 09:00 04/20/25 07:49 Fenofibrate Nanocrystallized 145 Mg Tablet PO 145 mg QAM NATASHA Administration Finasteride 5 mg 04/19/25 09:00 04/20/25 07:49 Finasteride 5 Mg Tablet PO 5 mg QAM NATASHA Administration Glipizide 5 mg 04/19/25 09:00 Glipizide Xl 5 Mg Tabcr PO DAILY NATASHA Glucagon 1 mg 04/18/25 15:23 Glucagon For Inj 1 Mg Vial IM PRN PRN Hypoglycemia Protocol Glucose 15 gm 04/18/25 15:23 Glucose Oral Gel 15 Gm Of Glucse In 37.5 Gm Tube PO PRN PRN Hypoglycemia Protocol Ceftriaxone Sodium 1 gm in 50 mls @ 100 mls/hr 04/19/25 13:00 04/19/25 12:06 Rocephin 1 Gm/Ns 50 Ml IVPB 100 mls/hr Q24H NATASHA Administration Dextrose 1,000 mls @ 100 mls/hr 04/18/25 15:23 Dextrose 5% 1,000 Ml IVPB PRN PRN Hypoglycemia Protocol Insulin Aspart 10 units 04/18/25 17:00 04/20/25 08:32 Insulin Aspart (*Bkc) 100 Units/Ml SUB-Q 10 units TIDWM NATASHA Administration Insulin Aspart 4 - 8 units 04/19/25 08:00 04/20/25 08:32 Insulin Aspart (*Bkc) 100 Units/Ml SUB-Q Not Given TIDWM [facility] Protocol Insulin Glargine 20 units 04/18/25 21:00 04/19/25 20:55 Insulin Glargine (*Bkc) 100 Units/Ml SUB-Q 20 units HS NATASHA Administration Magnesium Oxide 200 mg 04/19/25 09:00 04/20/25 07:49 Magnesium Oxide 200 Mg Tablet PO 200 mg DAILY NATASHA Administration Ondansetron HCl 4 mg 04/18/25 13:13 Ondansetron Inj 4 Mg/2 Ml Vial IV PUSH Q4H PRN Nausea Ropinirole HCl 2 mg 04/18/25 21:00 04/19/25 20:55 Ropinirole Hcl 1 Mg Tablet PO 2 mg HS NATASHA Administration Ropinirole HCl 1 mg 04/19/25 09:00 04/20/25 07:49 Ropinirole Hcl 1 Mg Tablet PO 1 mg DAILY NATASHA Administration Fluticasone/Salmeterol 2 puff 04/18/25 21:00 04/20/25 08:17 Fluticasone/Salmeterol 115-21 Mcg Inhaler 1 Puff INHALATION 2 puff Q12HR NATASHA Administration Simvastatin 40 mg 04/19/25 09:00 04/20/25 07:48 Simvastatin 20 Mg Tablet PO 40 mg DAILY NATASHA Administration Tamsulosin HCl 0.4 mg 04/18/25 21:00 04/19/25 20:55 Tamsulosin Hcl 0.4 Mg Capsule PO 0.4 mg HS NATASHA Administration Vitamin D 50 mcg 04/20/25 09:00 04/20/25 07:49 Cholecalciferol (Vitamin D3) 25 Mcg (1,000 Units) Tablet PO 50 mcg DAILY NATASHA Administration Radiology Results: ITS Impressions Head CT 04/18/25 12:07 Impression: No significant abnormality seen. Chest X-Ray 04/18/25 12:14 Impression: Left basilar atelectasis or pneumonia. Correlate clinically. Labs Labs: Laboratory Results - last 24 hr 04/19/25 04/19/25 04/19/25 11:51 16:57 20:16 POC Capillary Glucose 113 H 103 171 H 04/20/25 07:54 POC Capillary Glucose 157 H Quality VTE Prophylaxis VTE prophylaxis: mechanical ordered
[2025-04-20 10:22] LABS: Hematocrit 38.7 % (42.0-52.0); Hemoglobin 12.2 g/dL (14.0-18.0); Mean Corpuscular HGB Conc 31.5 g/dl (32-36); Mean Corpuscular Hemoglobin 25.6 pg (26-34); Mean Corpuscular Volume 81.3 fl (80-100); Platelet Count Result 282 k/mm3 (150-375); Red Blood Count 4.76 M/mm3 (4.6-6.20); White Blood Count 7.4 K/mm3 (4.5-10.0)
[2025-04-20 10:39] LABS: Alanine Aminotransferase 28 U/L (6-50); Albumin Level 4.2 g/dL (3.5-5.1); Alkaline Phosphatase 43 U/L (38-126); Anion Gap 14 mmol/L (4-12); Aspartate Amino Transferase 32 U/L (17-59); Bilirubin,Total 0.3 mg/dL (0.2-1.3); Blood Urea Nitrogen 21 mg/dL (9-20); Calcium 9.9 mg/dL (8.4-10.2); Carbon Dioxide 22 mmol/L (22-30); Chloride 100 mmol/L (98-107); Estimated CRCL calculation 78 ml/min; Estimated Glomerular Filt Rate > 60; Glucose 205 mg/dL (65-110); Potassium 4.0 mmol/L (3.4-5.0); Sodium 136 mmol/L (137-145); Total Protein 8.4 g/dL (6.3-8.2)
[2025-04-20] MEDS: INSULIN ASPART (*BKC) 100 UNITS/ML SUB-Q (12:19)
[2025-04-20 14:00] VITALS: BP 128/81; PULSE 82; RESP 16; TEMP 36.4; O2SAT 98
[2025-04-20] MEDS: INSULIN GLARGINE (*BKC) 100 UNITS/ML 20 UNITS SUB-Q (20:57)
[2025-04-20] MEDS: TAMSULOSIN HCL 0.4 MG CAPSULE PO (20:57)
[2025-04-20 21:53] VITALS: BP 161/73; PULSE 88; RESP 18; TEMP 36.8; O2SAT 96
[2025-04-20 23:09] VITALS: PULSE 79; RESP 23; O2SAT 96
[2025-04-21] VITALS (8 sets, daily range): BP systolic 129–150; BP diastolic 73–74; PULSE 71–84; RESP 12–20; TEMP 36.4–36.7; O2SAT 95–97
[2025-04-21 06:41] LABS: Hematocrit 42.4 % (42.0-52.0); Hemoglobin 12.9 g/dL (14.0-18.0); Mean Corpuscular HGB Conc 30.4 g/dl (32-36); Mean Corpuscular Hemoglobin 24.9 pg (26-34); Mean Corpuscular Volume 81.9 fl (80-100); Platelet Count Result 304 k/mm3 (150-375); Red Blood Count 5.18 M/mm3 (4.6-6.20); White Blood Count 10.3 K/mm3 (4.5-10.0)
[2025-04-21 06:58] LABS: Alanine Aminotransferase 26 U/L (6-50); Albumin Level 4.5 g/dL (3.5-5.1); Alkaline Phosphatase 51 U/L (38-126); Anion Gap 13 mmol/L (4-12); Aspartate Amino Transferase 32 U/L (17-59); Bilirubin,Total 0.4 mg/dL (0.2-1.3); Blood Urea Nitrogen 22 mg/dL (9-20); Calcium 9.7 mg/dL (8.4-10.2); Carbon Dioxide 23 mmol/L (22-30); Chloride 100 mmol/L (98-107); Estimated CRCL calculation 73 ml/min; Estimated Glomerular Filt Rate 60; Glucose 158 mg/dL (65-110); Potassium 4.1 mmol/L (3.4-5.0); Sodium 136 mmol/L (137-145); Total Protein 8.8 g/dL (6.3-8.2)
[2025-04-21] MEDS: EMPAGLIFLOZIN 25 MG TABLET PO (08:14)
[2025-04-21] MEDS: CHOLECALCIFEROL (VITAMIN D3) 25 MCG (1,000 UNITS) TABLET 50 MCG PO (08:14)
[2025-04-21] MEDS: MAGNESIUM OXIDE 200 MG TABLET PO (08:14)
[2025-04-21] MEDS: SIMVASTATIN 20 MG TABLET 40 MG PO (08:14)
[2025-04-21] MEDS: FENOFIBRATE NANOCRYSTALLIZED 145 MG TABLET PO (08:14)
[2025-04-21] MEDS: FINASTERIDE 5 MG TABLET PO (08:14)
[2025-04-21] MEDS: INSULIN ASPART (*BKC) 100 UNITS/ML 10 UNITS SUB-Q ×3 (08:15→17:33)
[2025-04-21] MEDS: FLUTICASONE/SALMETEROL 115-21 MCG INHALER 1 PUFF 2 PUFF INHALATION ×2 (08:52→20:08)
--- NOTE | 2025-04-21 15:14 | P.PNIM_ITS ---
Progress Note: A&P Assessment and Plan (1) Abnormal urinalysis: Code(s): R82.90 - Unspecified abnormal findings in urine Status: Acute Assessment and Plan: Recently treated with Levaquin for UTI, culture with growth of Staph epidermidis, may have been contaminant. UA again abnormal upon admission, however patient is asymptomatic aside from urinary retention. - UA: cloudy with 3+ glucose, negative nitrates, 2+ leukocytes, 51-100 WBC, no bactera. Moderate squamous cells, possible contaminant. - UC pending - previous micro reviewed 04/14: staph epidermidis - started on IV Rocephin on 04/18 which will be continued pending urine culture given degree of retention (2) Urinary retention: Code(s): R33.9 - Retention of urine, unspecified Status: Acute Assessment and Plan: Prior admission from 04/14-04/17 with urinary retention. Seen by Urology during admission and had a successful void trial and was recommended to be discharged on tamsulosin and finasteride, however it appears he did not receive a prescription for finasteride on discharge. Unable to void in ER, molina placed and >1L urinary retention noted. Likely due to BPH and prior urology consult recommended tamsulosin and finasteride. Continue tamsulosin and finasteride Will do a voiding trial today. PRN bladder scans. If unsuccessful will replace molina. Close outpatient Urology follow-up. Anticipate discharge tomorrow (3) MARIA D (acute kidney injury): Code(s): N17.9 - Acute kidney failure, unspecified Status: Acute Assessment and Plan: No prior labs to determine baseline. Creatinine 1.5 on admission. Ranged from 1.26-1.63 during recent admission. Received a liter of fluids upon arrival to ER. Lisinopril and HCTZ placed on hold for MARIA D on admission Avoid nephrotoxic medications Renally dose medications Monitor I/O BUN/Cr WNL. Continue to monitor. Blood pressures remain stable despite being off antihypertensives, continue to monitor. (4) Pneumonia: Code(s): J18.9 - Pneumonia, unspecified organism Status: Acute Assessment and Plan: CXR: left basilar atelectasis or pneumonia Recent admission from 04/14-04/17/2025 for dizziness and weakness and was found to have urinary retention,acute UTI, and pneumonia. Discharged on Levaquin, did not complete course. Patient is afebrile and has no respiratory symptoms. Lungs are clear to auscultation. Favor atelectasis. - Viral PCR: Flu/COVID/RSV negative - MRSA negative - legionella, mycoplasma and pneumococcal ordered - no supplemental O2 requirement - Incentive spirometer - Monitor vital signs, I&Os, neuro status and patient is a fall risk - Follow WBC, serum electrolytes, temperature curves and cultures Patient continues to denies shortness of breath and cough. Lungs remain clear on auscultation. (5) Diabetes: Qualifiers: Diabetes mellitus type: type 2 Diabetes mellitus chcf insulin use: without business intelligence reporting analyst use Diabetes mellitus complication status: without complication Qualified Code(s): E11.9 - Type 2 diabetes mellitus without complications Code(s): E11.9 - Type 2 diabetes mellitus without complications Status: Chronic Assessment and Plan: A1c is 8.5. Random glucose is stable. Followed by [facility] endocrinology in [place], Dr. Shandra Nelson and JUDD Lomax. Home medication list has patient on Jardiance 25 mg, Farxiga 10 mg, glipizide XL 5 mg, Tresiba 200 units daily, with Insulin lispro Quick Pen 65 units with breakfast, 65 units with lunch and 70 units with supper as well as Ozempic 0.5 mg weekly. Prior provider spoke with pharmacist who stated that actually the Glipizide XL is 5 mg BID and the lispro is 65/65/75 and both Farxiga and Jardiance were written by the same provider and filled 4 days apart for a 90 day prescription of each. Patient told RN that he takes both. Patient's weakness on admission may be related to low blood sugars. Patient states that his home sugars are typically lower 100s but will occasionally drop into the 60s resulting in dizziness and weakness. Farxiga is being discontinued (we don't stock at this hospital). Jardiance continued. Patient took Ozempic already this week. Glipizide XL 5 mg (daily instead of BID) is currently on hold due to hypoglycemia on arrival to the floor (glucose 64.) Smaller dose of basal and meal time insulin ordered. Currently lispro 10 units TIDWM. We do not stock Tresiba, substitute Lantus at lower dose. Currently 20 units HS. Continue hypoglycemia protocol Continue POC blood glucose ACHS 04/19: Spoke with Lizbeth VARGHESE at [facility] endocrinology. She states patient saw Annamaria SOUND EQUIPMENT MECHANIC on 02/04. No medications were changed at that time. Patient was on glipizide 5 mg BID, Farxiga 10 mg daily, ozempic 0.25 mg (now at 0.5mg), Tresiba 200 units HS, and novolog 65 units with breakfast, 65 units with lunch, and 70 units with dinner. Discussed with Lizbeth that patient has been experiencing hypoglycemia on this regimen and she states that she will discuss with the SOUND EQUIPMENT MECHANIC and have her call me back. Patient remains on decreased regimen at this time with stable glucose levels. Will need medication adjustments at time of discharge. (6) Weakness: Code(s): R53.1 - Weakness Status: Acute Assessment and Plan: Etiology unclear. Resolved at last admission and recurred almost immediately following discharge. TSH, B12, folate WNL Orthostatics negative PT/OT eval ordered Patient's weakness on admission may be related to low blood sugars. Patient states that his home sugars are typically lower 100s but will occasionally drop into the 60s resulting in dizziness and weakness. See plan for diabetes below. Resolved. (7) Hypertension: Qualifiers: Hypertension type: primary hypertension Qualified Code(s): I10 - Essential (primary) hypertension Code(s): I10 - Essential (primary) hypertension Status: Chronic Assessment and Plan: Chronic - lisinopril and hydrochlorothiazide remain on hold as blood pressures remain stable despite being off of them - continue to monitor (8) Anemia: Code(s): D64.9 - Anemia, unspecified Status: Acute Assessment and Plan: Normocytic anemia. Stable consistent with last admission. No evidence of acute blood loss. Monitor H&H Time Spent With Patient Time with patient: 25 - 35 minutes Subjective Date/time seen: 04/21/25 15:14 Interval history: 64-year-old male with a history of RORO on CPAP, COPD, hypertension, diabetes who presented to the hospital with complaints of weakness and dizziness. Recent admission from 04/14-04/17/2025 for dizziness and weakness and was found to have urinary retention,acute UTI, and pneumonia. Discharged on Levaquin. He was seen by Urology during admission and had a successful void trial and was recommended to be discharged on tamsulosin and finasteride, however it appears he did not receive a prescription for finasteride on discharge. Patient is pleasant, resting in bed. He has no complaints denying chest pain, palpitations, nausea/vomiting, shortness a breath, abdominal pain, and dizziness/lightheadedness/weakness. Omlina was removed earlier and pt had 600 cc urine, Molina was reinserted. Review of Systems Review of Systems: All systems reviewed & are unremarkable except as noted in HPI and below Exam Narrative: AF HR 82 RR 16 SpO2 98 BP 128/81 General: male in no acute respiratory distress who is nontoxic appearing, sitting up on side of bed HEENT: Normocephalic. Atraumatic. Extraocular movement intact. Sclera clear and anicteric. No facial asymmetry. Chest: Lungs are clear to auscultation bilaterally. No wheezes or crackles. CV: Heart was regular rate and rhythm. S1/S2. No murmurs, gallops, or rubs. Abd: Abdomen was soft. Nontender. Nondistended. Positive bowel sounds. : Molina in place, plan for voiding trial today. Ext: No clubbing, cyanosis, or edema. DP pulses bilaterally. Neuro: Patient is alert and oriented x4. Speech is clear. Objective Data Vital Signs Vital Signs: Vital Signs - 24 hr 04/20/25 20:00 04/20/25 21:53 04/20/25 23:09 Temperature 98.2 F Pulse Rate 88 79 Respiratory Rate 18 23 H Blood Pressure 161/73 H Pulse Oximetry 96 96 Oxygen Delivery CPAP CPAP 04/21/25 02:11 04/21/25 06:00 04/21/25 08:00 Temperature 97.6 F Pulse Rate 77 80 Respiratory Rate 20 18 Blood Pressure 129/73 Pulse Oximetry 97 97 Oxygen Delivery CPAP Room Air 04/21/25 08:54 04/21/25 14:20 Temperature 97.7 F Pulse Rate 71 84 Respiratory Rate 20 17 Blood Pressure 150/73 H Pulse Oximetry 95 Oxygen Delivery Intake/Output Intake/Output: Intake & Output 04/18/25 04/19/25 04/20/25 04/21/25 23:59 23:59 23:59 23:59 Intake Total 1290 1320 2200 1150 Output Total 100 6300 3150 Balance 1190 -4980 -950 1150 Meds/Results Medications: Active Medications Generic Name Dose Route Start Last Admin Trade Name Freq PRN Reason Stop Dose Admin Acetaminophen 650 mg 04/18/25 13:13 Acetaminophen 325 Mg Tablet PO Q4H PRN Mild Pain (1-3) or Fever Albuterol 2 puff 04/18/25 18:07 Albuterol Sulfate (*Sp) Aerosol 1 Puff INHALATION Q4HRT PRN shortness of breath or wheezin Benzonatate 200 mg 04/18/25 18:19 Benzonatate 100 Mg Capsule PO Q8H PRN cough Dextrose 12.5 gm 04/18/25 15:23 Dextrose 50% 25 Gm/50 Ml Syringe IV PUSH PRN PRN Hypoglycemia Protocol Empagliflozin 25 mg 04/19/25 09:00 04/21/25 08:14 Empagliflozin 25 Mg Tablet PO 25 mg DAILY NATASHA Administration Fenofibrate 145 mg 04/19/25 09:00 04/21/25 08:14 Fenofibrate Nanocrystallized 145 Mg Tablet PO 145 mg QAM NATASHA Administration Finasteride 5 mg 04/19/25 09:00 04/21/25 08:14 Finasteride 5 Mg Tablet PO 5 mg QAM NATASHA Administration Glipizide 5 mg 04/19/25 09:00 Glipizide Xl 5 Mg Tabcr PO DAILY NATASHA Glucagon 1 mg 04/18/25 15:23 Glucagon For Inj 1 Mg Vial IM PRN PRN Hypoglycemia Protocol Glucose 15 gm 04/18/25 15:23 Glucose Oral Gel 15 Gm Of Glucse In 37.5 Gm Tube PO PRN PRN Hypoglycemia Protocol Ceftriaxone Sodium 1 gm in 50 mls @ 100 mls/hr 04/19/25 13:00 04/21/25 12:19 Rocephin 1 Gm/Ns 50 Ml IVPB 100 mls/hr Q24H NATASHA Administration Dextrose 1,000 mls @ 100 mls/hr 04/18/25 15:23 Dextrose 5% 1,000 Ml IVPB PRN PRN Hypoglycemia Protocol Insulin Aspart 10 units 04/18/25 17:00 04/21/25 12:19 Insulin Aspart (*Bkc) 100 Units/Ml SUB-Q 10 units TIDWM NATASHA Administration Insulin Aspart 4 - 8 units 04/19/25 08:00 04/21/25 12:20 Insulin Aspart (*Bkc) 100 Units/Ml SUB-Q Not Given TIDWM [facility] Protocol Insulin Glargine 20 units 04/18/25 21:00 04/20/25 20:57 Insulin Glargine (*Bkc) 100 Units/Ml SUB-Q 20 units HS NATASHA Administration Magnesium Oxide 200 mg 04/19/25 09:00 04/21/25 08:14 Magnesium Oxide 200 Mg Tablet PO 200 mg DAILY NATASHA Administration Ondansetron HCl 4 mg 04/18/25 13:13 Ondansetron Inj 4 Mg/2 Ml Vial IV PUSH Q4H PRN Nausea Ropinirole HCl 2 mg 04/18/25 21:00 04/20/25 20:57 Ropinirole Hcl 1 Mg Tablet PO 2 mg HS NATASHA Administration Ropinirole HCl 1 mg 04/19/25 09:00 04/21/25 08:14 Ropinirole Hcl 1 Mg Tablet PO 1 mg DAILY NATASHA Administration Fluticasone/Salmeterol 2 puff 04/18/25 21:00 04/21/25 08:52 Fluticasone/Salmeterol 115-21 Mcg Inhaler 1 Puff INHALATION 2 puff Q12HR NATASHA Administration Simvastatin 40 mg 04/19/25 09:00 04/21/25 08:14 Simvastatin 20 Mg Tablet PO 40 mg DAILY NATASHA Administration Tamsulosin HCl 0.4 mg 04/18/25 21:00 04/20/25 20:57 Tamsulosin Hcl 0.4 Mg Capsule PO 0.4 mg HS NATASHA Administration Vitamin D 50 mcg 04/20/25 09:00 04/21/25 08:14 Cholecalciferol (Vitamin D3) 25 Mcg (1,000 Units) Tablet PO 50 mcg DAILY NATASHA Administration Radiology Results: ITS Impressions Head CT 04/18/25 12:07 Impression: No significant abnormality seen. Chest X-Ray 04/18/25 12:14 Impression: Left basilar atelectasis or pneumonia. Correlate clinically. Labs Labs: Laboratory Results - last 24 hr 04/20/25 04/20/25 04/21/25 16:34 19:58 06:25 WBC 10.3 H RBC 5.18 Hgb 12.9 L Hct 42.4 MCV 81.9 MCH 24.9 L MCHC 30.4 L RDW 15.4 H Plt Count 304 MPV 9.1 Sodium 136 L Potassium 4.1 Chloride 100 Carbon Dioxide 23 Anion Gap 13 H BUN 22 H Creatinine 1.21 Estim Creat Clear Calc 73 Estimated GFR 60 Glucose 158 H POC Capillary Glucose 113 H 152 H Calcium 9.7 Total Bilirubin 0.4 AST 32 ALT 26 Alkaline Phosphatase 51 Total Protein 8.8 H Albumin 4.5 04/21/25 04/21/25 07:52 12:08 WBC RBC Hgb Hct MCV MCH MCHC RDW Plt Count MPV Sodium Potassium Chloride Carbon Dioxide Anion Gap BUN Creatinine Estim Creat Clear Calc Estimated GFR Glucose POC Capillary Glucose 153 H 126 H Calcium Total Bilirubin AST ALT Alkaline Phosphatase Total Protein Albumin Quality VTE Prophylaxis VTE prophylaxis: mechanical ordered
[2025-04-21 15:39] LABS: Pneumococcal Antigen Urine NOT DETECTED
[2025-04-21 18:23] LABS: Legionella pneumophila Ag Ur. NOT DETECTED
[2025-04-21] MEDS: TAMSULOSIN HCL 0.4 MG CAPSULE PO (21:48)
[2025-04-21] MEDS: INSULIN GLARGINE (*BKC) 100 UNITS/ML 20 UNITS SUB-Q (22:00)
[2025-04-22 03:18] VITALS: PULSE 78; RESP 18; O2SAT 95
[2025-04-22 06:00] VITALS: BP 135/75; PULSE 73; RESP 20; TEMP 36.2; O2SAT 93
[2025-04-22 06:54] LABS: Hematocrit 42.8 % (42.0-52.0); Hemoglobin 13.3 g/dL (14.0-18.0); Mean Corpuscular HGB Conc 31.1 g/dl (32-36); Mean Corpuscular Hemoglobin 25.3 pg (26-34); Mean Corpuscular Volume 81.5 fl (80-100); Platelet Count Result 300 k/mm3 (150-375); Red Blood Count 5.25 M/mm3 (4.6-6.20); White Blood Count 9.2 K/mm3 (4.5-10.0)
[2025-04-22 06:59] LABS: Alanine Aminotransferase 24 U/L (6-50); Albumin Level 4.3 g/dL (3.5-5.1); Alkaline Phosphatase 51 U/L (38-126); Anion Gap 13 mmol/L (4-12); Aspartate Amino Transferase 30 U/L (17-59); Bilirubin,Total 0.4 mg/dL (0.2-1.3); Blood Urea Nitrogen 22 mg/dL (9-20); Calcium 9.6 mg/dL (8.4-10.2); Carbon Dioxide 22 mmol/L (22-30); Chloride 102 mmol/L (98-107); Estimated CRCL calculation 78 ml/min; Estimated Glomerular Filt Rate > 60; Glucose 130 mg/dL (65-110); Potassium 4.1 mmol/L (3.4-5.0); Sodium 137 mmol/L (137-145); Total Protein 8.7 g/dL (6.3-8.2)
[2025-04-22 08:03] VITALS: O2SAT 96
[2025-04-22] MEDS: FLUTICASONE/SALMETEROL 115-21 MCG INHALER 1 PUFF 2 PUFF INHALATION (08:03)
[2025-04-22] MEDS: EMPAGLIFLOZIN 25 MG TABLET PO (08:07)
[2025-04-22] MEDS: CHOLECALCIFEROL (VITAMIN D3) 25 MCG (1,000 UNITS) TABLET 50 MCG PO (08:07)
[2025-04-22] MEDS: FENOFIBRATE NANOCRYSTALLIZED 145 MG TABLET PO (08:08)
[2025-04-22] MEDS: SIMVASTATIN 20 MG TABLET 40 MG PO (08:08)
[2025-04-22] MEDS: MAGNESIUM OXIDE 200 MG TABLET PO (08:08)
[2025-04-22] MEDS: INSULIN ASPART (*BKC) 100 UNITS/ML 10 UNITS SUB-Q ×2 (08:08→12:23)
[2025-04-22] MEDS: FINASTERIDE 5 MG TABLET PO (08:08)
[2025-04-22] MEDS: DOCUSATE SODIUM 100 MG CAPSULE PO (08:08)
--- NOTE | 2025-04-22 11:12 | P.DS_ITS ---
DS: Admitting Diagnosis Discharge Date 04/22 Admitting Diagnosis weakness DS: Discharge Diagnosis Discharge Diagnosis (1) Abnormal urinalysis: Code(s): R82.90 - Unspecified abnormal findings in urine Status: Acute (2) Urinary retention: Code(s): R33.9 - Retention of urine, unspecified Status: Acute (3) MARIA D (acute kidney injury): Code(s): N17.9 - Acute kidney failure, unspecified Status: Acute (4) Pneumonia: Code(s): J18.9 - Pneumonia, unspecified organism Status: Acute (5) Diabetes: Qualifiers: Diabetes mellitus complication status: without complication Diabetes mellitus skilled nursing insulin use: without skilled nursing use Diabetes mellitus type: type 2 Qualified Code(s): E11.9 - Type 2 diabetes mellitus without complica tions Code(s): E11.9 - Type 2 diabetes mellitus without complications Status: Chronic (6) Weakness: Code(s): R53.1 - Weakness Status: Acute (7) Hypertension: Qualifiers: Hypertension type: primary hypertension Qualified Code(s): I10 - Essential (primary) hypertension Code(s): I10 - Essential (primary) hypertension Status: Chronic (8) Anemia: Code(s): D64.9 - Anemia, unspecified Status: Acute DS: Summary Hospital Course Hospital Course: 64-year-old male with a history of RORO on CPAP, COPD, hypertension, diabetes who presented to the hospital with complaints of weakness and dizziness. Recent admission from 04/14-04/17/2025 for dizziness and weakness and was found to have urinary retention,acute UTI, and pneumonia. Discharged on Levaquin. He was seen by Urology during admission and had a successful void trial and was recommended to be discharged on tamsulosin and finasteride, however it appears he did not receive a prescription for finasteride on discharge. # t2dm Home medication list has patient on Jardiance 25 mg, Farxiga 10 mg, glipizide XL 5 mg, Tresiba 200 units daily, with Insulin lispro Quick Pen 65 units with breakfast, 65 units with lunch and 70 units with supper as well as Ozempic 0.5 mg weekly. Pt started ozempic in January, in february dose was increased to 0.5 mg and it was never increased to the maintenance dose of 2 mg. His goal is to get to 2mg weekly, which is a maintenance dose for Ozempic in order to limit and eventually eliminate meal insulin and hopefully stop insulin all together. rx for 1 mg of ozempic was sent. Take it weekly for 4 weeks. At that point, he would very likely need to be titrated up to 2mg and then stay on that dose. He needs to keep endocrinology team informed. Goal for morning (fasting blood sugars) are 80-130. If bs consistently staying below that range, he needs to call endocrinology team for further instructions. Farxiga is being discontinued (farxiga and jardiance SHOULD not be taken together) Jardiance continue. Glipizide XL 5 mg (daily instead of BID) is currently on hold due to hypoglycemia on arrival to the floor (glucose 64.) We will continue to hold it. Smaller dose of basal and meal time insulin ordered. We have him currently on lispro 10 units three times a day with meals with sliding scale. We did not stock Tresiba, substitute Lantus at lower dose. Currently 20 units HS. I sent script for lantus. He is to Monitor your BS and keep log. IT is important to report low BS or high BS to manager of application development right away. So pt went home on following regimen 10 units of lispro-short acting insulin with meals. 20 units lantus at bedtime- rx sent jardiance OR farxiga. ozempic 1 mg weekly- rx sent # abnormal urinalysis Recently treated with Levaquin for UTI, culture with growth of Staph epidermidis, may have been contaminant. UA again abnormal upon admission, however patient is asymptomatic aside from urinary retention. - UA: cloudy with 3+ glucose, negative nitrates, 2+ leukocytes, 51-100 WBC, no bactera. Moderate squamous cells, possible contaminant. - UC pending - previous micro reviewed 04/14: staph epidermidis - started on IV Rocephin on 04/18 which will be continued pending urine culture given degree of retention 04/22 ua culture didnot grow any bacteria. rocephin dose was given today and stopped # aka were holding lisinopril and hctz resolved, bp had been stable- needs to follow up with pcp about the need for BP meds and/or dose decrease # Pneumonia CXR: left basilar atelectasis or pneumonia Recent admission from 04/14-04/17/2025 for dizziness and weakness and was found to have urinary retention,acute UTI, and pneumonia. Discharged on Levaquin, did not complete course. Patient is afebrile and has no respiratory symptoms. Lungs are clear to auscultation. Favor atelectasis. - Viral PCR: Flu/COVID/RSV negative - MRSA negative - legionella, mycoplasma and pneumococcal ordered - no supplemental O2 requirement - Incentive spirometer - Monitor vital signs, I&Os, neuro status and patient is a fall risk - Follow WBC, serum electrolytes, temperature curves and cultures Patient continues to denies shortness of breath and cough. Lungs remain clear on auscultation. Rocephin was administered and last dose given today, 04/22. # urinary retention Prior admission from 04/14-04/17 with urinary retention. Seen by Urology during admission and had a successful void trial and was recommended to be discharged on tamsulosin and finasteride, however it appears he did not receive a prescription for finasteride on discharge. Unable to void in ER, molina placed and >1L urinary retention noted. Likely due to BPH and prior urology consult recommended tamsulosin and finasteride. Continue tamsulosin and finasteride Failed two voiding trials. Molina was reinserted and pt is tpo go home with it Close outpatient Urology follow-up. Status at Discharge Functional status at discharge: independent ambulation Overall status at discharge: patient is back to baseline Time Spent with Patient Time attestation: Total time spent providing and/or coordinating discharge services: Time spent: Greater than 30 minutes Exam Narrative: General: male in no acute respiratory distress who is nontoxic appearing, sitting up on side of bed HEENT: Normocephalic. Atraumatic. Extraocular movement intact. Sclera clear and anicteric. No facial asymmetry. Chest: Lungs are clear to auscultation bilaterally. No wheezes or crackles. CV: Heart was regular rate and rhythm. S1/S2. No murmurs, gallops, or rubs. Abd: Abdomen was soft. Nontender. Nondistended. Positive bowel sounds. : Molina in place, plan for voiding trial today. Ext: No clubbing, cyanosis, or edema. DP pulses bilaterally. Neuro: Patient is alert and oriented x4. Speech is clear. Const: General: comfortable DS: Data Data Completed and Pending Labs on day of discharge: Labs from last 24 hours 04/22/25 04/22/25 04/21/25 07:54 06:19 19:46 WBC 9.2 RBC 5.25 Hgb 13.3 L Hct 42.8 MCV 81.5 MCH 25.3 L MCHC 31.1 L RDW 15.5 H Plt Count 300 MPV 9.3 Sodium 137 Potassium 4.1 Chloride 102 Carbon Dioxide 22 Anion Gap 13 H BUN 22 H Creatinine 1.13 Estim Creat Clear Calc 78 Estimated GFR > 60 Glucose 130 H POC Capillary Glucose 135 H 158 H Calcium 9.6 Total Bilirubin 0.4 AST 30 ALT 24 Alkaline Phosphatase 51 Total Protein 8.7 H Albumin 4.3 Ur L.pneumophila Ag Urine Pneumococcal Ag 04/21/25 04/21/25 04/18/25 17:04 12:08 16:25 WBC RBC Hgb Hct MCV MCH MCHC RDW Plt Count MPV Sodium Potassium Chloride Carbon Dioxide Anion Gap BUN Creatinine Estim Creat Clear Calc Estimated GFR Glucose POC Capillary Glucose 133 H 126 H Calcium Total Bilirubin AST ALT Alkaline Phosphatase Total Protein Albumin Ur L.pneumophila Ag Not detected Urine Pneumococcal Ag Not detected Preliminary micro results at discharge 04/18/25 15:55 Blood Culture - Preliminary Blood 04/18/25 15:55 Blood Culture - Preliminary Blood Discharge Plan Discharge Attending physician on discharge: Mckay Kathleen Discharging Clinician: Candice Bell Patient Disposition: Home with Home Health Service Activity: february shower Diet: diabetic Wound Care Instructions: follow printed instructions Discharge Instructions: Per Care Coordination: [facility] will contact you prior to their first visit. [facility] will follow for RN molina catheter care and PT/OT eval and treat. [facility] can be contacted at [phone]. A1c is 8.5. WE gave you last dose of iV antibiotics today, 04/22- no need for further antibiotics. WE discussed your insulin regimen with your manager of application development and that is what we were told: Home medication list has patient on Jardiance 25 mg, Farxiga 10 mg, glipizide XL 5 mg, Tresiba 200 units daily, with Insulin lispro Quick Pen 65 units with breakfast, 65 units with lunch and 70 units with supper as well as Ozempic 0.5 mg weekly. You started ozempic in January, in february dose was increased to 0.5 mg and it was never increased to the maintenance dose of 2 mg. You goal is to get to 2mg weekly, which is a maintenance dose for Ozempic in order to limit and eventually eliminate meal insulin and hopefully stop insulin all together. I will send you a script for 1 mg of ozempic. Please take it weekly for 4 weeks. At that point, you would very likely need to be titrated up to 2mg and then stay on that dose. Please make sure you communicate with your endocrinology team. You goal for morning (fasting blood sugars) are 80-130. If you consistently staying below that range, call your endocrinology team for further instructions. Farxiga is being discontinued (farxiga and jardiance SHOULD not be taken together) Jardiance continue. If you prefer the other way around- that is ok too. just make sure you update manager of application development. Glipizide XL 5 mg (daily instead of BID) is currently on hold due to hypoglycemia on arrival to the floor (glucose 64.) We will continue to hold it. Please follow your manager of application development instruction on that. Smaller dose of basal and meal time insulin ordered. We have you currently on lispro 10 units three times a day with meals with sliding scale. We did not stock Tresiba, substitute Lantus at lower dose. Currently 20 units HS. I will send you script for lantus. Since your BS was stable on this regimen, please continue it at home. Monitor your BS and keep log. IT is important to report low BS or high BS to your manager of application development right away. So 10 units of lispro-short acting insulin with meals. 20 units lantus at bedtime jardiance OR farxiga. ozempic 1 mg weekly. Due to urinary retention, you are going home with Molina cath. Please take your flomax and proscar as prescribed. F/u with urology within a week for further instructions. Patient Instructions: Antibiotic Form, Pain Management (DC), Molina Catheter Placement and Care (DC), Urinary Leg Bag (GEN) Patient Language: Cameroonian Stand Alone Forms: General Discharge Information Follow-up/Referrals: [facility] [Provider Group] - 2 Weeks (f/u with YOUR endocrinology team) Arlyn,Sven Terrell MD [Primary Care Provider] - 1 Week Leighton Fleming MD [Physician] - 1 Week Discharge Medications: New insulin glargine [Lantus U-100 Insulin] 100 unit/mL Solution 20 unit subcut HS Qty: 10 0RF tamsulosin 0.4 mg Capsule 0.4 mg PO HS Qty: 90 0RF finasteride [Proscar] 5 mg Tablet 5 mg PO QAM Qty: 90 0RF Ozempic 1 mg/dose (4 mg/3 mL) pen injector 1 mg subcut WEEKLY Qty: 3 2RF insulin aspart U-100 [Novolog U-100 Insulin aspart] 100 unit/mL Solution 10 unit subcut TIDWM Qty: 10 0RF Continued Jardiance 25 mg tablet 25 mg PO DAILY fenofibrate micronized 134 mg capsule 134 mg PO DAILY magnesium 250 mg tablet 250 mg PO DAILY ropinirole 1 mg tablet 1 mg PO DAILY ropinirole 2 mg tablet 2 mg PO HS simvastatin 40 mg tablet 40 mg PO DAILY lisinopril 40 mg tablet 40 mg PO DAILY omega-3 acid ethyl esters 1 gram capsule 2 cap PO BID albuterol sulfate 90 mcg/actuation HFA aerosol inhaler 2 puff INHALATION Q4H PRN (Reason: shortness of breath or wheezing) Dulera 100-5 mcg/actuation HFA aerosol inhaler 2 puff INHALATION Q12H hydrochlorothiazide 25 mg tablet 25 mg PO DAILY cholecalciferol (vitamin D3) [Vitamin D3] 50 mcg (2,000 unit) tablet 2,000 unit PO DAILY tamsulosin 0.4 mg Capsule 0.4 mg PO QHS Qty: 30 0RF benzonatate 200 mg capsule 200 mg PO Q8H PRN (Reason: cough) Discontinued insulin lispro [Humalog KwikPen Insulin] 100 unit/mL insulin pen 65 unit subcut 0800,1200 insulin lispro 100 unit/mL insulin pen 70 unit SUBCUT 1700 Ozempic 0.25 mg or 0.5 mg (2 mg/3 mL) pen injector 0.5 mg SUBCUT WEEKLY glipizide 5 mg tablet extended release 24hr 5 mg PO DAILY insulin degludec [Tresiba FlexTouch U-200] 200 unit/mL (3 mL) insulin pen 200 unit SUBCUT DAILY levofloxacin 250 mg tablet 250 mg PO DAILY Qty: 7 0RF amoxicillin 500 mg capsule 500 mg PO Q8H Date of admission: 04/18/25 13:13 Primary Care Provider: Arlyn,Sven Terrell Admitting Provider: Juan Jose Armando Attending physician on admission: Marsha Patel Condition: Stable Quality VTE Prophylaxis VTE prophylaxis: mechanical ordered
--- NOTE | 2025-05-12 15:00 | PCCDE ---
05/12/25 2:55 PM DM educator courtesy follow up call completed. Fasting Glucose reportedly: <150 most days, some <130 Pt reports to doing pretty good - Saw PCP 05/10/25 - To see Endo last [place] in May.
== END 2025-04-22 14:55 | disposition home health service (06) | DRG 639 ==
LOC: ANHED 11:11 → ANH3MEDSUR 14:31
PROVIDERS: Physician Assistant; Student in an Organized Health Care Education/Training Program; Admitting Provider Internal Medicine; Emergency Provider Student in an Organized Health Care Education/Training Program; PCP Internal Medicine; Visit Provider Nurse Practitioner
DX: E11.649 Type 2 diabetes mellitus with hypoglycemia without coma (principal); N17.9 Acute kidney failure, unspecified; D64.9 Anemia, unspecified; I10 Essential (primary) hypertension; J44.9 Chronic obstructive pulmonary disease, unspecified; N40.1 Benign prostatic hyperplasia with lower urinary tract symptoms; R33.8 Other retention of urine; G47.30 Sleep apnea, unspecified; T38.3X5A Adverse effect of insulin and oral hypoglycemic [antidiabetic] drugs, initial encounter; Z20.822 Contact with and (suspected) exposure to COVID-19; Z91.119 Patient's noncompliance with dietary regimen due to unspecified reason; Z79.4 Long term (current) use of insulin; Z87.891 Personal history of nicotine dependence
CPT/HCPCS: 36415; 70450; 71046; 80048; 80053; 81001; 82607; 82948; 83735; 84443; 85025; 85027; 87040; 87086; 87449; 87637; 87641; 87899; 93005; 94640; 96374; 97110; 97116; 97162; 97165; 97530; 97535; 99285; A9270; J0696; J1815; J7030

== ENCOUNTER 2025-05-19 09:13 | Emergency (ER) | payer MEDICARE, SELFPAY ==
[2025-05-19] VITALS (16 sets, daily range): BP systolic 132–160; BP diastolic 66–91; PULSE 71–75; RESP 12–18; TEMP 36.7; O2SAT 96–100
--- NOTE | ~2025-05-19 | XR_ITS ---
CHEST RADIOGRAPH, PA AND LATERAL CLINICAL HISTORY: weakness . COMPARISON: 04/18/2025 TECHNIQUE: PA and lateral views of the chest. FINDINGS The cardiomediastinal silhouette is unremarkable. Blunting of the left costophrenic sulcus suggesting a small left-sided pleural effusion. Previous examination demonstrated similar findings in the left costophrenic sulcus on frontal view an d on the lateral view was without an effusion. This likely represents overlying soft tissues, rather than intrinsic pathology. The lungs are clear. IMPRESSION: No focal infiltrate or effusion. Reviewed, dictated and finalized at location A.
--- NOTE | ~2025-05-19 | CT_ITS ---
History: Weakness PROCEDURE: CT head without contrast. COMPARISON: 04/18/2025 TECHNIQUE: Axial imaging of the head performed from the skull base to the vertex without IV contrast. Sagittal a nd coronal reformations obtained. DLP: 605 mGy-cm FINDINGS: The ventricles are normal in size, shape and position. There is no mass, mass effect or midline shift. There is no abnormal extra-axial fluid collection or intracranial hemorrhage. Visualized paranasal sinuses are clear. The mastoid air cells are well aerated. No acute displaced fractures within the overlying cranium. Impression: No acute intracranial hemorrhage or suspicious mass effect. Reviewed, dictated and finalized at location A. Impression: No acute intracranial hemorrhage or suspicious mass effect.
--- NOTE | 2025-05-19 09:20 | ECG_ITS ---
Test Date: 2025-05-19 09:21:47 Measurements Intervals [place] Rate: 67 P: 47 AK: 175 QRS: 37 QRSD: 98 T: 66 QT: 362 QTc: 384 Interpretive Statements SINUS RHYTHM Compared to ECG 04/18/2025 11:22:18 No significant changes Electronically Signed On 05-19-2025 13:09:45 CDT by Kaden Robbins D.O
--- OUTSIDE RECORDS SUMMARY | 2025-05-19 09:27 | XMS_ITS | Clinical Summary ---
Author [place] [facility] [place] [address] Address [address] [place] [address] Care Team Providers Care Cutter Woodwind Reeds Name Role Phone Sven Stoddard MD Primary Care Provider Allergies Active Allergy Reactions Criticality Noted Date Comments Cephalexin Rash,Hives Medium 01/09/2018 Metformin Diarrhea High 11/26/2023 Tramadol Rash,Hives Medium 01/09/[address] (VOLTAREN) 75 mg EC tablet take 1 tablet by oral route 2 times every day 0 0 5 Active cholecalciferol (VITAMIN D3) 2,000 unit capsule take one by oral route one time every day 0 0 5 Active lisinopril (PRINIVIL,ZESTR IL) 40 mg tablet take 1 tablet (40MG) by oral route every day 0 3 Active omega-3 fatty acids (FISH OIL CONCENTRATE) 1,000 mg capsule 1 tablet tid 0 0 3 Active PROAIR HFA 90 mcg/actuation inhaler Inhale 2 puffs every 4 (four) hours as needed 0 7 Active simvastatin (ZOCOR) 40 mg tablet Take 1 tablet (40 mg total) by mouth daily 0 7 Active mometasone-form oterol (DULERA 100) 100-5 mcg/actuation inhaler Inhale 2 puffs 2 (two) times a day Rinse mouth with water after use to reduce aftertaste and incidence of candidiasis. Do not swallow. Active fenofibrate choline (TRILIPIX) 135 mg capsule TK ONE C PO QD 1 8 Active ergocalciferol (VITAMIN D) 50,000 unit capsule Take 1 capsule (50,000 Units total) by mouth 3 Active fenofibrate micronized (LOFIBRA) 134 mg capsule Take by mouth daily 4 Active hydroCHLOROthia zide (HYDRODIURIL) 25 mg tablet Take 1 tablet (25 mg total) by mouth every morning 3 Active insulin lispro (HumaLOG, ADMELOG) 100 unit/mL pen for injectionIndica tions:Type 2 diabetes mellitus with hyperglycemia, with long-term current use of insulin ([facility]) 65 units before breakfast & lunch, 75 before dinner 150 mL 3 4 Active glipiZIDE XL (GLUCOTROL XL) 5 mg 24 hr tabletIndicatio ns:type 2 diabetes mellitus Take 1 tablet (5 mg total) by mouth 2 (two) times a day before breakfast and dinner 180 tablet 3 5 10/26/19 26 Active insulin aspart (NovoLOG) 100 unit/mL (3 mL) pen for injectionIndica tions:Type 2 diabetes mellitus with hyperglycemia, with long-term current use of insulin ([facility]) 65 units before breakfast & lunch, 75 before dinner 150 mL 3 5 Active insulin degludec (TRESIBA) 200 unit/mL (3 mL) pen for injectionIndica tions:Type 2 diabetes mellitus with hyperglycemia, with long-term current use of insulin ([facility]) Inject 1 mL (200 Units total) under the skin daily 90 mL 3 5 10/26/19 26 Active Vascepa 1 gram capsule TAKE 2 CAPSULES(2 GRAMS) BY MOUTH TWICE DAILY 120 capsule 3 5 Active empagliflozin (JARDIANCE) 25 mg tabletIndicatio ns:Type 2 diabetes mellitus with hyperglycemia, with long-term current use of insulin ([facility]) Take 1 tablet (25 mg total) by mouth daily 90 tablet 3 5 11/09/19 26 Active omega-3 fatty acids (LOVAZA) 1 gram capsuleIndicati ons:Hyperlipide trinh associated with type 2 diabetes mellitus (HCC) Take 2 capsules (2 g total) by mouth 2 (two) times a day 360 capsule 3 5 11/09/19 26 Active pen needle, diabetic (BD Ultra-Fine Short Pen Needle) 31 gauge x 5/16 needleIndicatio ns:Type 2 diabetes mellitus with hyperglycemia, with long-term current use of insulin ([facility]) USE DIRECTED FOUR TIMES DAILY 400 each 2 5 Active Farxiga 10 mg tablet Take 1 tablet (10 mg total) by mouth daily Active rOPINIRole (REQUIP) 2 mg tablet 5 Active OneTouch Verio Flex meter miscIndications :Type 2 diabetes mellitus with hyperglycemia, with long-term current use of insulin ([facility]) Check blood sugars twice daily 1 each 5 Active lancets 30 gauge miscIndications :Type 2 diabetes mellitus with hyperglycemia, with long-term current use of insulin ([facility]) Check blood sugar twice daily 200 each 3 5 Active semaglutide (Ozempic) 0.25 mg or 0.5 mg (2 mg/3 mL) pen injector injectionIndica tions:Type 2 diabetes mellitus with hyperglycemia, with long-term current use of insulin ([facility]) INJECT 0.5 MG UNDER THE SKIN ONCE A WEEK 9 mL 1 5 Active OneTouch Verio test strips stripIndication s:Type 2 diabetes mellitus with hyperglycemia, with long-term current use of insulin ([facility]) Check blood sugar three times daily 300 strip 3 5 Active Active Problems Problem Noted Date Diagnosed Date Numbness and tingling in right hand 11/26/2023 Assessment & Plan (11/26/2023 3:51 PM SKIN CARE INSTRUCTOR): Probably DN Will have him see neurology, Dr Mcmanus Hyperlipidemia associated with type 2 diabetes prosper chapa 04/17/2018 Assessment & Plan (02/04/2025 1:01 PM CDT): Chronic problem. Not at goal on current Simvastatin 40mg, lovaza 2gm bid, fenofibrate 135mg daily. Last lipid panel: 12/05/23 LDL=86, WE=689. Will update labs. Verified that he uses [facility] [employer] Aware to check results/results letter in [employer] Will contact by phone if needed. Assessment & Plan (10/26/2024 3:30 PM SKIN CARE INSTRUCTOR): Chronic unknown status Continue statin and Vascepa, Patient is getting some blood work that has been ordered by PCP Assessment & Plan (11/26/2023 3:49 PM SKIN CARE INSTRUCTOR): With elevated TG Diet and exercise Low carb low fat diet Continue statin and Vascepa, Update lipid profile Assessment & Plan (05/07/2023 3:22 PM CDT): Uncontrolled hypertriglyceridemia Low fat low carb diet emphasized Continue pravastatin , vascepa and fenofibrate Assessment & Plan (11/20/2022 4:30 PM SKIN CARE INSTRUCTOR): Uncontrolled, with significant hypertriglyceridemia Importance of diet and exercise was explained Continue current regimen including atorvastatin, fenofibrate and Vascepa Assessment & Plan (03/13/2022 3:50 PM CDT): Chronic, well controlled Low fat Low cholesterol diet Exercise Continue statin therapy with Simvastatin Assessment & Plan (09/05/2021 3:44 PM SKIN CARE INSTRUCTOR): Low chol low fat diet Exercise Continue Fenofibrate, Simvastatin Assessment & Plan (11/15/2020 3:55 PM SKIN CARE INSTRUCTOR): Goal of treatment , LDL cholesterol less than 100 ( less than 70 in patients with history of heart attacks and / or strokes ) NonHDL cholesterol ( total cholesterol minus HDL cholesterol ) goal less than 130 ( less than 100 in patients with history of heart attacks and / or strokes ) Low cholesterol, low fat diet was discussed and advised. Daily exercise On statin therapy Assessment & Plan (08/25/2020 3:17 PM SKIN CARE INSTRUCTOR): Continue statin, fibrate and omega 3. Would benefit from being more attentive to diet and exercise Assessment & Plan (05/19/2020 3:28 PM CDT): At goal on current medications. Continue statin therapy. Assessment & Plan (01/07/2020 3:24 PM CDT): Goal of treatment , LDL cholesterol less than 100 ( less than 70 in patients with history of heart attacks and / or strokes ) NonHDL cholesterol ( total cholesterol minus HDL cholesterol ) goal less than 130 ( less than 100 in patients with history of heart attacks and / or strokes ) Low cholesterol, low fat diet was discussed and advised. Daily exercise On statin therapy Assessment & Plan (09/03/2019 3:41 PM SKIN CARE INSTRUCTOR): Goal of treatment , LDL cholesterol less than 100 ( less than 70 in patients with history of heart attacks and / or strokes ) NonHDL cholesterol ( total cholesterol minus HDL cholesterol ) goal less than 130 ( less than 100 in patients with history of heart attacks and / or strokes ) Low cholesterol, low fat diet was discussed and advised. Daily exercise On statin therapy with Lipitor Assessment & Plan (05/07/2019 3:23 PM CDT): Goal of treatment , LDL cholesterol less than 100 ( less than 70 in patients with history of heart attacks and / or strokes ) NonHDL cholesterol ( total cholesterol minus HDL cholesterol ) goal less than 130 ( less than 100 in patients with history of heart attacks and / or strokes ) Low cholesterol, low fat diet was discussed and advised. Daily exercise On statin therapy Assessment & Plan (04/17/2018 3:49 PM CDT): Goal of treatment , LDL cholesterol less than 100 ( less than 70 in patients with history of heart attacks and / or strokes ) NonHDL cholesterol ( total cholesterol minus HDL cholesterol ) goal less than 130 ( less than 100 in patients with history of heart attacks and / or strokes ) Low cholesterol, low fat diet was discussed and advised. Daily exercise On statin therapy BMI 40.0-44.9, adult 04/02/2017 Assessment & Plan (08/25/2020 3:16 PM SKIN CARE INSTRUCTOR): Wt is continuing to increase with lack of attention to diet and exercise. Reminded to decreasing snacking and ice cream. Assessment & Plan (05/19/2020 3:28 PM CDT): Importance of following diet and exercising discussed. Morbid obesity with BMI of 40.0-44.9, adult 03/21 Assessment & Plan (10/26/2024 3:31 PM SKIN CARE INSTRUCTOR): Counseled on diet and exercise Assessment & Plan (05/07/2019 3:23 PM CDT): Diet and exercise were discussed Assessment & Plan (01/15/2018 2:16 PM CDT): Importance of following diet and exercising discussed. Assessment & Plan (10/10/2017 4:14 PM SKIN CARE INSTRUCTOR): Continue diet and weight loss efforts with increased exercise. Options for increasing walking in winter discussed. Assessment & Plan (07/04/2017 3:44 PM CDT): Continue with weight loss efforts Assessment & Plan (04/02/2017 3:45 PM CDT): Diet and exercise were discussed Hypertension associated with diabetes 02/24/2013 Overview (01/25/2017): Hypertension, Unspecified Assessment & Plan (02/04/2025 1:02 PM CDT): Chronic problem. Controlled on current lisinopril 40mg, HCTZ 25mg daily Will update labs. Verified that he uses [facility]. Aware to check results/results letter in [facility] Will contact by phone if needed. Assessment & Plan (10/26/2024 3:30 PM SKIN CARE INSTRUCTOR): Chronic, well controlled Continue Lisinopril Assessment & Plan (11/26/2023 3:50 PM SKIN CARE INSTRUCTOR): Chronic, well controlled Continue Lisinopril Update MA Assessment & Plan (05/07/2023 3:21 PM CDT): Chronic, well controlled Continue Lisinopril Update GFR Assessment & Plan (11/20/2022 4:30 PM SKIN CARE INSTRUCTOR): Chronic, well-controlled Continue current regimen including lisinopril Assessment & Plan (07/17/2022 3:38 PM CDT): Well controlled Continue current meds Check MA Assessment & Plan (03/13/2022 3:50 PM CDT): Chronic, well controlled Continue current meds Assessment & Plan (09/05/2021 3:44 PM SKIN CARE INSTRUCTOR): Goal blood pressure is less than 140/85 Low salt diet was discussed andd recommended The importance of daily aerobic exercise was also emphasized. Continue current meds, including ZURI-I or ARB, e.g. Lisinopril Assessment & Plan (04/25/2021 9:53 AM CDT): Goal blood pressure is less than 140/85 Low salt diet was discussed andd recommended The importance of daily aerobic exercise was also emphasized. Continue current meds, including ZURI-I or ARB, e.g. Lisinopril Assessment & Plan (11/15/2020 3:55 PM SKIN CARE INSTRUCTOR): Goal blood pressure is less than 140/85 Low salt diet was discussed andd recommended The importance of daily aerobic exercise was also emphasized. Continue current meds, including ZURI-I or ARB, e.g. Check microalbumin Assessment & Plan (08/25/2020 3:17 PM SKIN CARE INSTRUCTOR): Controlled on current medications. Continue plan. Assessment & Plan (05/19/2020 3:29 PM CDT): Controlled on current medications. Continue plan. Assessment & Plan (01/07/2020 3:24 PM CDT): Goal blood pressure is less than 140/85 Low salt diet recommended Daily aerobic exercise Continue current meds, including ZURI-I or ARB with Lisinopril Assessment & Plan (09/03/2019 3:42 PM SKIN CARE INSTRUCTOR): Goal blood pressure is less than 140/85 Low salt diet recommended Daily aerobic exercise Continue current meds, including ZURI-I or ARB with Lisinopril Assessment & Plan (10/07/2018 3:51 PM SKIN CARE INSTRUCTOR): Goal blood pressure is less than 140/85 Low salt diet recommended Daily aerobic exercise Continue current meds, including ZURI-I or ARB Assessment & Plan (04/17/2018 3:48 PM CDT): Goal blood pressure is less than 140/85 Low salt diet recommended Daily aerobic exercise Continue current meds, including ZURI-I or ARB Assessment & Plan (01/15/2018 2:16 PM CDT): Controlled on current medications. Assessment & Plan (10/10/2017 4:14 PM SKIN CARE INSTRUCTOR): Controlled on current medications. Assessment & Plan (07/04/2017 3:45 PM CDT): Controlled on current medications. Assessment & Plan (04/02/2017 3:45 PM CDT): Goal blood pressure is less than 140/85 Low salt diet recommended Daily aerobic exercise Continue current meds, including ZURI-I or ARB Type 2 diabetes mellitus with hyperglycemia 04/2013 Overview (01/25/2017): DMII WO CMP UNCNTRLD Assessment & Plan (02/04/2025 1:49 PM CDT): Chronic problem. A1c still uncontrolled but improved from 9.8% 11/27/24 to now 9.3%. discussed diet at length; especially with Ozempic starting. Will start you on Ozempic 0.25mg weekly x4 weeks then increase to 0.5mg weekly. If blood sugars start to go low--stop the Glipizide. May need to start decreasing insulin doses in future also but Glipizide will be first to stop though. Current medications: Glipizide XL 5mg twice daily Farxiga 10 mg daily Ozempic 0.25mg weekly x4 weeks then increase to 0.5mg weekly. Tresiba 200 units at bedtime Novolog 65 units before breakfast & lunch, 70 units at dinner UTD on DM eye exam (05/06/24 no [facility]) Will update labs. Verified that he uses [facility]. Aware to check results/results letter in [facility] Will contact by phone if needed. Discussed with Len Botello: Strive for regular exercise (30min most days) and diet (get at least 4-5 servings of fruit and veggies daily, avoid processed foods, increase lean protein intake and decrease carb portions as well as fruit juices, regular soda & desserts). Watch carbs and simple sugars. Check the blood sugar: 2-3x/day. Check the feet daily for skin breakdown and infection. Assessment & Plan (10/26/2024 3:30 PM SKIN CARE INSTRUCTOR): Chronic, uncontrolled, worsening Recheck hemoglobin A1c As per patient is fasting blood sugars are running high Advised patient to check his bedtime blood sugars if his blood time blood sugars are high then advised to increase his NovoLog with dinner by 10-15 units But if bedtime blood sugars are doing good then advised to increase his Tresiba by 10-15 units Counseled on diet and exercise Refilled Farxiga advised to restart taking it Check labs soon Up-to-date with eye exam Follow-up in 3 months Assessment & Plan (11/26/2023 3:48 PM SKIN CARE INSTRUCTOR): Hba1c was Lab Results Component Value Date HGBA1C 8.3 11/26/2023 today, indicating inadequate DM control Goal Hba1c under 7 and blood glucose level in the 120-160 range was explained Low carb diet and daily aerobic and /or resistant exercise were advised Prevention and treatment of hyypoglcyemia were discussed with the patient Blood glucose monitoring : ac and hs Adjustment to medications: Continue Tresiba and Humalog Farxiga GLS1s are very expensive Metformin caused diarrhea Assessment & Plan (05/07/2023 3:21 PM CDT): Hba1c was Lab Results Component Value Date HGBA1C 7.7 05/07/2023 today, indicating suboptimal DM control Goal Hba1c and blood glucose explained Diet and exercise were advised Prevention and treatment of hyypoglcyemia were discussed with the patient Blood glucose monitoring : 3 x day Adjustment to medications: Continue current regimen Assessment & Plan (11/20/2022 4:31 PM SKIN CARE INSTRUCTOR): Chronic, uncontrolled but with some mild improvement Unfortunately the patient can not afford the Bydureon Continue current insulin regimen as well as metformin and Farxiga Assessment & Plan (07/17/2022 3:38 PM CDT): Hba1c was Lab Results Component Value Date HGBA1C 8.3 07/17/2022 today, indicating inadquate DM control Goal Hba1c and blood glucose explained Diet and exercise were advised Prevention and treatment of hyypoglcyemia were discussed with the patient Blood glucose monitoring : will request E[employer] Adjustment to medications: Take Novolog, 60 units before breakfast and dinner Take 70 units before dinner Stay on Jardiance and Metformin Assessment & Plan (03/13/2022 3:54 PM CDT): Hba1c was Lab Results Component Value Date HGBA1C 7.9 03/13/2022 today, indicating inappropriate DM control Goal Hba1c and blood glucose explained Diet and exercise were advised Prevention and treatment of hyypoglcyemia were discussed with the patient Blood glucose monitoring : 3-4 x day Adjustment to medications: continue current Pt to work on diet. Stop Tradjenta Assessment & Plan (09/05/2021 3:43 PM SKIN CARE INSTRUCTOR): Hba1c was Lab Results Component Value Date HGBA1C 7.5 09/05/2021 today, indicating suboptimal DM control Goal blood glucose levels : 90-130 Target Hba1c : 7 % BG monitoring : tid Prevention and treatment of hyypoglcyemia discussed. Insulin regimen adjustments: Tresiba 145 units Humalog, 60 units ac Oral medication adjustments: continue current Continue Bydureon Assessment & Plan (04/25/2021 10:03 AM CDT): Hba1c was Lab Results Component Value Date HGBA1C 8.1 (A) 04/25/2021 today, indicating inadequate DM control Goal blood sugars in the 120-150 range , with Hb1c under 7.0 % was explained 1800 calorie, consistent carb diet recommended. No more than 30-45 grams of carbs per meal recommended, as well as avoiding high concentrated sweet drinks . 25-45 min daily exercise, combining both aerobic and resistance exercise recommended. The need to monitor blood glucose before meals and bedtime was discussed. Prevention and treatment of hyypoglcyemia discussed. Will add Bydureon Assessment & Plan (11/15/2020 3:55 PM SKIN CARE INSTRUCTOR): Hba1c was Lab Results Component Value Date HGBA1C 7.9 11/15/2020 today, indicating inadequate DM control Goal blood sugars in the 120-150 range , with Hb1c under 7.0 % was explained 1800 calorie, consistent carb diet recommended. No more than 30-45 grams of carbs per meal recommended, as well as avoiding high concentrated sweet drinks . 25-45 min daily exercise, combining both aerobic and resistance exercise recommended. The need to monitor blood glucose before meals and bedtime was discussed. Prevention and treatment of hyypoglcyemia discussed. Continue current regimen Pt is not interested in a CGM Assessment & Plan (08/25/2020 3:26 PM SKIN CARE INSTRUCTOR): A1c 7.6. Pt with low health literacy. I am concerned about his report of how he is taking Novolog as there is a great difference between 0 and 55 units of Novolog with a BG of 160. I have asked him to only use Novolog scale 2:50 > 200 for the next week, especially considering current BG as 2 hour pc without prandial Novolog. He is to let us know within the next few days if he is always needing to use 12 unit of CF. Otherwise continue current medication. Fluctuations in BG are greatly impacted by diet. Assessment & Plan (05/19/2020 3:30 PM CDT): A1c increased to 7.4. Suspect that issues are related to pc excursions. Increase Novolog by 1 unit to 16 ac. Advised that he needs to focus on diet; reduce portion sizes. More regular activity. Assessment & Plan (01/07/2020 3:24 PM CDT): Hba1c was Lab Results Component Value Date HGBA1C 6.8 01/07/2020 today, indicating adequate DM control 1800 calorie, consistent carb diet recommended. No more than 30-45 grams of carbs per meal recommended, as well as avoiding high concentrated sweet drinks . 25-45 min daily exercise, combining both aerobic and resistance exercise recommended. The need to monitor blood glucose before meals and bedtime was discussed. Prevention and treatment of hyypoglcyemia discussed. Insulin dose: Assessment & Plan (09/03/2019 3:41 PM SKIN CARE INSTRUCTOR): Your Hba1c today was: Lab Results Component Value Date HGBA1C 7.8 % 09/03/2019 meaning a 3 month average sugar of : 174 Your goal hba1c is under 7.0 to prevent oysterman diabetes complications ( eye , kidney and nerve damage ) . Your goal sugars are in the 90-130 range Exercise recommendations: It is recommended that you do daily aerobic ( walking, riding a bike, swimming ) and resistance exercises ( light weight lifting, resistance band stretching ) for at least 30 minutes , most days of the week. If you can not walk, chair exercises for 10-15 min a day would help tremendously. As little as 15-20 minutes exercise , in one or two sessions a day, is still very helpful to improve your diabetes control . Diet recommendations: Eat small portion meals, trying not to consume more than 1800 calories a day . Try to eat not more than than 2 servings of carbs ( starches ) wiith your meals. Avoid soft drinks, including regular sodas , fruit juices and sweetened tea. Drink water instead. Eat plenty of green and leafy vegetables, including salads. Medications: Take your medications regularly. Setting phone alarms can help . Keep your medication on the kitchen dinner table, by the bedside table or by the sink where they are visible to you. If you are taking insulin : the insulin that you are currently using does not need to be refrigerated. Keep it where you can see it . Monitor your sugar levels with finger sticks regularly and keep a log sheet or book. Bring your sugar meter and /or a log book or log sheet to every office visit. Take Levemir , 80 units only twice a day . Novolog, take 55 units with each meal. When you finish your current supply of Levemir, stop Levemir and start Tresiba, 160 units at bedtime ( Tresiba is a basal, once a day insulin ) Assessment & Plan (05/07/2019 3:22 PM CDT): Your Hba1c today was: Lab Results Component Value Date HGBA1C 7.4 % 05/07/2019 meaning a 3 month average sugar of : 160 Your goal hba1c is under 7.0 to prevent oysterman diabetes complications ( eye , kidney and nerve damage ) . Your goal sugars are in the 90-130 range Exercise recommendations: It is recommended that you do daily aerobic ( walking, riding a bike, swimming ) and resistance exercises ( light weight lifting, resistance band stretching ) for at least 30 minutes , most days of the week. If you can not walk, chair exercises for 10-15 min a day would help tremendously. As little as 15-20 minutes exercise , in one or two sessions a day, is still very helpful to improve your diabetes control . Diet recommendations: Eat small portion meals, trying not to consume more than 1800 calories a day . Try to eat not more than than 2 servings of carbs ( starches ) wiith your meals. Avoid soft drinks, including regular sodas , fruit juices and sweetened tea. Drink water instead. Eat plenty of green and leafy vegetables, including salads. Medications: Take your medications regularly. Setting phone alarms can help . Keep your medication on the kitchen dinner table, by the bedside table or by the sink where they are visible to you. If you are taking insulin : the insulin that you are currently using does not need to be refrigerated. Keep it where you can see it . Monitor your sugar levels with finger sticks regularly and keep a log sheet or book. Bring your sugar meter and /or a log book or log sheet to every office visit. Cut down Novolog by 5 units each. Continue Lantus,same dose Assessment & Plan (10/07/2018 3:51 PM SKIN CARE INSTRUCTOR): Hba1c was Lab Results Component Value Date HGBA1C 7.3 10/07/2018 today, indicating adequate DM control 1800 calorie, consistent carb diet recommended 25-45 min daily exercise, combining both aerobic and resistance exercise recommended. The need to monitor blood glucose before meals and bedtime was discussed. Dose of basal and prandial insulin adjusted as follows: Continue current regimen. Prevention and treatment of hyypoglcyemia discussed. Assessment & Plan (04/17/2018 3:52 PM CDT): Hba1c was Lab Results Component Value Date HGBA1C 7.4 04/17/2018 today, indicating DM control 1800 calorie, consistent carb diet recommended 30 min daily aerobic and resistance exercise recommended Prevention and treatment of hyypoglcyemia discussed. Blood glucose monitoring with fingers sticks 1-2 x day . Assessment & Plan (01/15/2018 2:19 PM CDT): A1c 6.9. Reduce dinner dose of Novolog to 60 units and reminded to only take insulin right before eating to prevent hypoglycemia. Assessment & Plan (10/10/2017 4:22 PM SKIN CARE INSTRUCTOR): A1c 7.0 with rare lows. No change to current medication plan. Continue with weight loss efforts. Discuss improved A1c with plaster whittler to see if it is appropriate to remove growth with improved BG control. Foot care reviewed. Assessment & Plan (07/04/2017 3:46 PM CDT): A1c improved at 7.1 without reported lows. No change to current medication plan. BG goals reviewed. May need to make adjustments to insulin plan if resistance improves with continued weight loss. Advised to send in BG and call with lows. Assessment & Plan (04/02/2017 3:42 PM CDT): Hba1c was 8.1 today, indicating adequate DM control Check sugars before meals and bedtime Take Levemir and Novolog as current dose, also Start Jardiance, 10 mg once a day Stop Tradjenta Continue Victoza 1800 calorie, consistent carb diet recommended 30 min daily aerobic and resistance exercise recommended Foot care discused. Prevention and treatment of hyypoglcyemia discussed. Resolved Problems Problem Noted Date Diagnosed Date Resolved Date Acute upper respiratory infection 10/27/2012 09/03/2019 Overview (01/25/2017): Acute upper respiratory infections of unspecified Encounters Date Type Department Care Team Description 04/19/2025 Telephone [facility] [address] [phone] Shandra Reid MD 04/06/2025 Orders Only [facility] [address] [place] [phone] ProviderGill MD 03/19/2025 Telephone [facility] [address] [phone] Annamaria Solis NP 03/01/2025 Results Follow-Up [facility] Endocr[facility] [address] [place] [phone] Annamaria Solis, EMMANUEL Lipid panel, Albumin Creatinine Ratio, Urine from Last 3 Months Immunizations Immunization Administration Dates Next Due Moderna SARS-CoV-2 Monovalent Vaccination (12+ Y RS) 07/30/2021 Surgical History Surgery Date Site/Laterality Comments CATARACT EXTRACTION 10/21/2009 - 10/20/2010 Cataract extraction OTHER SURGICAL HISTORY ARTHOSCOPIC RIGHT KNEE REPAIR COLONOSCOPY 07/21/2021 - 08/20/2021 Medical History Medical History Date Comments Diabetes mellitus (HCC) Diabetes Hypertension Hypertension Hyperlipidemia Hyperlipidemia Hx Other Medical Not Claustropho bic; Comments: 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 Family History Medical History Relation Name Comments Diabetes Father Diabetes mellit us; Kidney disease Father Renal disease ; Kidney failure Father Renal failure ; Coronary artery disease Mother Isabela nary artery disease; Relation Name Status Comments Father Mother Social History Tobacco Use Types Packs/Day Years Used Date Smoking Tobacco: Former Smokeless Tobacco: Never Tobacco Cessation:Counseling Given: Not Answered Comments:Smoking History Packs/day: 60 Packs Alcohol Use Standard Drinks/Week Comments No 0 (1 standard drink = 0.6 oz pur e alcohol) PHQ-2 Answer Date Recorded PHQ-2 Total Score (If total score is 3 or more points, staff should administer the PHQ-9) 0 11/20/2022 Sex and Gender Information Value Date Recorded Sex Assigned at Not on file Legal Sex Male 2:43 AM SKIN CARE INSTRUCTOR Gender Identity Male 11/20/2021 5:50 PM SKIN CARE INSTRUCTOR Sexual Orientation Straight 11/20/2021 5: 50 PM SKIN CARE INSTRUCTOR Obstetrics History Last Filed Vital Signs Vital Sign Reading Time Taken Comments Blood Pressure 110/72 02/04/2025 1:02 PM CDT Pulse 80 02/04/2025 1:02 PM CDT Temperature - - Respiratory Rate 18 02/04/2025 1:02 PM CDT Oxygen Saturation - - Inhaled Oxygen Concentration - - Weight 131.1 kg (289 lb) 02/04/2025 1:02 PM CDT Height 175.3 cm (5' 9.02) 02/04/2025 1:02 PM CD T Body Mass Index 42.66 02/04/2025 1:02 PM CDT Plan of Treatment Health Maintenance Due Date Last Done Comments Colon Cancer Screening-Colonoscopy 1960 Hepatitis C Screening 1960 DTaP/Tdap/Td Vaccine (1 - Tdap) 1970 Hepatitis B Screening 1977 Zoster Vaccine (1 of 2) 2009 Pneumococcal vaccine 65+ (2 of 2 - PCV) 11/17/2022 11/17/2021, 09/04/2016 Depression Screening 11/20/2023 11/20/2022, 11/20/2022, 07/17/2022, Additional history exists Fall Risk Assessment 11/20/2023 11/20/2022 Prostate Cancer Screening-PSA 06/14/2024 06/14/2022, 07/25/2017 Covid-19 Vaccine (2023-2 5 season) 2024 08/13/2021, 07/30/2021, 01/03/2021, Additional history exists Abdominal Aortic Aneurysm (A AA) Screen 2024 Well Visit 65+ 2024 Influenza Vaccine (#1) 2025 , 08/19/2023, 07/20/2021, Additional history exists Hemoglobin A1C 08/06/2025 02/04/2025, 02/0 04/2025, 11/27/2024, Additional history exists eGFR 11/27/2025 11/27/2024, 08/3 , 03/13/2022, Additional history exists Foot Exam 02/04/2026 02/04/2025, 0705/2023, 03/13/2022, Additional history exists Albumin Creatinine Ratio, Urine 02/26/2026 02/26/2025, 11/04/2024, 12/05/2023, Additional history exists Lipid Panel 02/26/2026 02/26/2025, 11/21, 06/14/2022, Additional history exists Dilated Eye Exam 03/31/2026 03/31/2025, , 04/16/2023, Additional history exists Procedures Procedure Name Priority Date/Time Associated Diagnosis Comments DIABETES EYE EXAM Routine 03/31/2025 8:28 AM CDT ALBUMIN CREATININE RATIO, URINE Routine 02/26/2025 10:44 AM CDT LIPID PANEL Routine 02/26/2025 10:44 AM CDT POCT HEMOGLOBIN A1C Routine 02/04/2025 1 :10 PM CDT Type 2 diabetes mellitus with hyperglycemia, with long-term current use of insulin (HCC) COMPREHENSIVE METABOLIC PANEL Routine 11/27/2024 12:00 AM SKIN CARE INSTRUCTOR PSA, TOTAL Routine 06/14/2022 from Last 3 Months or Most Recently Relevant to Health Maintenance Results * DIABETES EYE EXAM (03/31/2025 8:28 AM CDT) us Historical Provider HEALTH MAINTENANCE Final Result * (ABNORMAL) Albumin Creatinine Ratio, Urine (02/26/2025 10:44 AM CDT) Creatinine, ur 55 20 - 320 mg/dL [facility] Microalbumin, ur 3.3 See Note: mg/dL [facility] Comment: Reference Range: Reference Range Not established Microalbumin/creat ratio 60(H) <30 mg/g creat [facility] Comment: The ADA defines abnormalities in albumin excretion as follows: Albuminuria Category Result (mg/g creatinine) Normal to Mildly increased <30 Moderately increased 30-299 Severely increased > OR = 300 The ADA recommends that at least two of three specimens collected within a 3-6 month period be abnormal before considering a patient to be within a diagnostic category. 02/26/2025 10:4 4 AM CDT 02/26/2025 10:45 AM CDT Narrative [facility] - 02/27/2025 3:21 AM CDT FASTING:YES FASTING: YES Annamaria Solis NP LAB URINE ORDERABLES Rosibel hiram Result [facility] [address] [facility] [place] [phone] * (ABNORMAL) Lipid panel (02/26/2025 10:44 AM CDT) Cholesterol 162 <200 mg/dL [email or web address] HDL 29(L) > OR = 40 mg/dL [email or web address] Triglycerides 423(H) <150 mg/dL [facility] Comment: If a non-fasting specimen was collected, consider repeat triglyceride testing on a fasting specimen if clinically indicated. Taj et al. J. of Clin. Lipidol. 2015;9:129-169. LDL mg/dL (calc) [facility] Comment: LDL cholesterol not calculated. Triglyceride levels greater than 400 mg/dL invalidate calculated LDL results. Reference range: <100 Desirable range <100 mg/dL for primary prevention; <70 mg/dL for patients with CHD or diabetic patients with > or = 2 CHD risk factors. LDL-C is now calculated using the Clovis-Ryder calculation, which is a validated novel method providing better accuracy than the Friedewald equation in the estimation of LDL-C. Clovis SILVER et al. RAUL. 2013;310(19): 1708-9685 (http://education.Spacebikini/faq/JJN223) Chol/HDL ratio 5.6(H) <5.0 (calc) [email or web address] Non-HDL, (LDL+VLDL) 133(H) <130 mg/dL (calc) [facility] Comment: For patients with diabetes plus 1 major ASCVD risk factor, treating to a non-HDL-C goal of <100 mg/dL (LDL-C of <70 mg/dL) is considered a therapeutic option. 02/26/2025 10:4 4 AM CDT 02/26/2025 10:45 AM CDT Narrative [facility] - 02/27/2025 3:21 AM CDT FASTING:YES FASTING: YES us Annamaria Solis NP LAB BLOOD ORDERABLES Rosibel l [facility] [address] [place] [phone] * (ABNORMAL) POCT hemoglobin A1c (02/04/2025 1:10 PM CDT) Hemoglobin A1C, POC 9.3 4.0 - 5.6 % Blood 02/04/2025 1:10 PM CDT us Annamaria Solis NP POINT OF CARE TEST ORDERA BLES Final Result * (ABNORMAL) Comprehensive metabolic panel (11/27/2024 12:00 AM SKIN CARE INSTRUCTOR) SCRIBED Sodium 138 135 - 146 mmol/L [facility] Potassium 4.2 3.5 - 5.3 mmol/L [facility] Chloride 100 98 - 110 mmol/L [facility] Carbon Dioxide 18(A) 20 - 32 mmol/L [facility] Urea Nitrogen (BUN) 27(A) 7 - 25 mg/dl [facility] Creatinine 1.06 0.70 - 1.35 mg/dl [facility] Glucose 198(A) 65 - 99 mg/dl [facility] Calcium 9.9 8.6 - 10.3 mg/dl [facility] Bilirubin 0.2 0.2 - 1.2 mg/dl [facility] S[facility] Plasma Protein 7.6 6.1 - 8.1 g/dl [facility] S[facility] Albumin 4.5 3.6 - 5.1 g/dl [facility] S[facility] Alkaline Phosphatase 59 35 - 144 Units/L [facility] Alanine Transaminase (ALT) 29 9 - 46 Units/L [facility] Aspartate Transaminase (AST) 23 10 - 35 Units/L [facility] SCRIBED eGFR in NonAfrican [place] 78 >=60 - NA [facility] Blood 11/27/2024 Historical Provider MD LAB BLOOD ORDERABLES Edit ed Result - Final [facility] * PSA, total Blood (06/14/2022) SCRIBED PSA, Total 0.33 NA - NA [facility] Blood 06/14/2022 Historical Provider LAB BLOOD ORDERABLES Edit ed Result - Final [facility] [address] [id number] [phone] from Last 3 Months or Most Recently Relevant to Health Maintenance Insurance [facility] MEDICARE ADVANTAGE [facility] MEDICARE ADVANTAGE Care Teams Cutter Woodwind Reeds Relationship Specialty Start Date End Date Sven Stoddard MD PCP - General 01/18/17
--- OUTSIDE RECORDS SUMMARY | 2025-05-19 09:27 | XMS_ITS | Referral Summary ---
Author Organization [address] Address [address] [place] [id number] Care Team Providers Care Group Reservations Coordinator Name Role Phone Sven Stoddard MD Primary Care Provider Encounters Date Type Department Care Team Description 04/19/2025 Telephone [facility] [place] [facility] [address] [address] Shandra Reid MD 04/06/2025 Orders Only [facility] Diabetes and Endocrinology [address] [place] [phone] ProviderGill MD 03/19/2025 Telephone [facility] [place] [facility] [address] [address] Annamaria Solis NP 03/01/2025 Results Follow-Up [facility] Diabetes [facility] Endocrinology [address] [place] [phone] Annamaria Solis NP Lipid panel, Albumin Creatinine Ratio, Urine from Last 3 Months Allergies Active Allergy Reactions Criticality Noted Date [...] with long-term current use of insulin (HCC) 65 units before breakfast & lunch, 75 [...] hyperglycemia, with long-term current use of insulin ([facility]) 65 units before breakfast & lunch, 75 before dinner 150 mL 3 5 Active insulin degludec (TRESIBA) 200 unit/mL (3 mL) pen for injectionIndica tions:Type 2 diabetes mellitus with hyperglycemia, with long-term current use of insulin ([facility]) Inject 1 mL (200 Units total) under the skin daily 90 mL 3 5 10/26/19 26 Active Vascepa 1 gram capsule TAKE 2 CAPSULES(2 GRAMS) BY MOUTH TWICE DAILY 120 capsule 3 5 Active empagliflozin (JARDIANCE) 25 mg tabletIndicatio ns:Type 2 diabetes mellitus with hyperglycemia, with long-term current use of insulin ([facility]) Take 1 tablet (25 mg total) by mouth daily 90 tablet 3 5 11/09/19 26 Active omega-3 fatty acids (LOVAZA) 1 gram capsuleIndicati ons:Hyperlipide trinh associated with type 2 diabetes mellitus ([facility]) Take 2 capsules (2 g total) by mouth 2 (two) times a day 360 capsule 3 5 11/09/19 26 Active pen needle, diabetic (BD Ultra-Fine Short Pen Needle) 31 gauge x 5/16 needleIndicatio ns:Type 2 diabetes mellitus with hyperglycemia, with long-term current use of insulin ([facility]) USE DIRECTED FOUR TIMES DAILY 400 each 2 5 Active Farxiga 10 mg tablet Take 1 tablet (10 mg total) by mouth daily Active rOPINIRole (REQUIP) 2 mg tablet 5 Active OneTouch Verio Flex meter miscIndications :Type 2 diabetes mellitus with hyperglycemia, with long-term current use of insulin ([facility]) Check blood sugars twice daily 1 each 5 Active lancets 30 gauge miscIndications :Type 2 diabetes mellitus with hyperglycemia, with long-term current use of insulin ([facility]) Check blood sugar twice daily 200 each 3 5 Active semaglutide (Ozempic) 0.25 mg or 0.5 mg (2 mg/3 mL) pen injector injectionIndica tions:Type 2 diabetes mellitus with hyperglycemia, with long-term current use of insulin ([facility]) INJECT 0.5 MG UNDER THE SKIN ONCE A WEEK 9 mL 1 5 Active OneTouch Verio test strips stripIndication s:Type 2 diabetes mellitus with hyperglycemia, with long-term current use of insulin ([facility]) Check blood sugar three times daily 300 strip 3 5 Active Active Problems Problem Noted Date Diagnosed Date Numbness and tingling in right hand 11/26/2023 Assessment & Plan (11/26/2023 3:51 PM REAL ESTATE ASSOCIATE): Probably DN Will have him see neurology, Dr Mcmanus Hyperlipidemia associated with type 2 diabetes prosper chapa 04/17/2018 Assessment & Plan (02/04/2025 1:01 PM CDT): Chronic problem. Not at goal on current Simvastatin 40mg, lovaza 2gm bid, fenofibrate 135mg daily. Last lipid panel: 12/05/23 LDL=86, EX=765. Will update labs. Verified that he uses [employer]. Aware to check results/results letter in [employer]. Will contact by phone if needed. Assessment & Plan (10/26/2024 3:30 PM REAL ESTATE ASSOCIATE): Chronic unknown status Continue statin and Vascepa, Patient is getting some blood work that has been ordered by PCP Assessment & Plan (11/26/2023 3:49 PM REAL ESTATE ASSOCIATE): With elevated TG Diet and exercise Low carb low fat diet Continue statin and Vascepa, Update lipid profile Assessment & Plan (05/07/2023 3:22 PM CDT): Uncontrolled hypertriglyceridemia Low fat low carb diet emphasized Continue pravastatin , vascepa and fenofibrate Assessment & Plan (11/20/2022 4:30 PM REAL ESTATE ASSOCIATE): Uncontrolled, with significant hypertriglyceridemia Importance of diet and exercise was explained Continue current regimen including atorvastatin, fenofibrate and Vascepa Assessment & Plan (03/13/2022 3:50 PM CDT): Chronic, well controlled Low fat Low cholesterol diet Exercise Continue statin therapy with Simvastatin Assessment & Plan (09/05/2021 3:44 PM REAL ESTATE ASSOCIATE): Low chol low fat diet Exercise Continue Fenofibrate, Simvastatin Assessment & Plan (11/15/2020 3:55 PM REAL ESTATE ASSOCIATE): Goal of treatment , LDL cholesterol less [...] therapy Assessment & Plan (08/25/2020 3:17 PM REAL ESTATE ASSOCIATE): Continue statin, fibrate and omega 3. Would [...] therapy Assessment & Plan (09/03/2019 3:41 PM REAL ESTATE ASSOCIATE): Goal of treatment , LDL cholesterol less [...] 04/02/2017 Assessment & Plan (08/25/2020 3:16 PM REAL ESTATE ASSOCIATE): Wt is continuing to increase with lack of attention to diet and exercise. Reminded to decreasing snacking and ice cream. Assessment & Plan (05/19/2020 3:28 PM CDT): Importance of following diet and exercising discussed. Morbid obesity with BMI of 40.0-44.9, adult 03/21 Assessment & Plan (10/26/2024 3:31 PM REAL ESTATE ASSOCIATE): Counseled on diet and exercise Assessment & Plan (05/07/2019 3:23 PM CDT): Diet and exercise were discussed Assessment & Plan (01/15/2018 2:16 PM CDT): Importance of following diet and exercising discussed. Assessment & Plan (10/10/2017 4:14 PM REAL ESTATE ASSOCIATE): Continue diet and weight loss efforts with [...] mychart. Aware to check results/results letter in [email or web address]. Will contact by phone if needed. Assessment & Plan (10/26/2024 3:30 PM REAL ESTATE ASSOCIATE): Chronic, well controlled Continue Lisinopril Assessment & Plan (11/26/2023 3:50 PM REAL ESTATE ASSOCIATE): Chronic, well controlled Continue Lisinopril Update MA Assessment & Plan (05/07/2023 3:21 PM CDT): Chronic, well controlled Continue Lisinopril Update GFR Assessment & Plan (11/20/2022 4:30 PM REAL ESTATE ASSOCIATE): Chronic, well-controlled Continue current regimen including lisinopril Assessment & Plan (07/17/2022 3:38 PM CDT): Well controlled Continue current meds Check MA Assessment & Plan (03/13/2022 3:50 PM CDT): Chronic, well controlled Continue current meds Assessment & Plan (09/05/2021 3:44 PM REAL ESTATE ASSOCIATE): Goal blood pressure is less than 140/85 [...] Lisinopril Assessment & Plan (11/15/2020 3:55 PM REAL ESTATE ASSOCIATE): Goal blood pressure is less than 140/85 Low salt diet was discussed andd recommended The importance of daily aerobic exercise was also emphasized. Continue current meds, including ZURI-I or ARB, e.g. Check microalbumin Assessment & Plan (08/25/2020 3:17 PM REAL ESTATE ASSOCIATE): Controlled on current medications. Continue plan. Assessment & Plan (05/19/2020 3:29 PM CDT): Controlled on current medications. Continue plan. Assessment & Plan (01/07/2020 3:24 PM CDT): Goal blood pressure is less than 140/85 Low salt diet recommended Daily aerobic exercise Continue current meds, including ZURI-I or ARB with Lisinopril Assessment & Plan (09/03/2019 3:42 PM REAL ESTATE ASSOCIATE): Goal blood pressure is less than 140/85 Low salt diet recommended Daily aerobic exercise Continue current meds, including ZURI-I or ARB with Lisinopril Assessment & Plan (10/07/2018 3:51 PM REAL ESTATE ASSOCIATE): Goal blood pressure is less than 140/85 [...] medications. Assessment & Plan (10/10/2017 4:14 PM REAL ESTATE ASSOCIATE): Controlled on current medications. Assessment & Plan [...] eye exam (05/06/24 no DMR [facility] [place]) Will update labs. Verified that he uses [employer]. Aware to check results/results letter in [employer]. Will contact by phone if needed. Discussed [...] infection. Assessment & Plan (10/26/2024 3:30 PM REAL ESTATE ASSOCIATE): Chronic, uncontrolled, worsening Recheck hemoglobin A1c As [...] months Assessment & Plan (11/26/2023 3:48 PM REAL ESTATE ASSOCIATE): Hba1c was Lab Results Component Value Date [...] regimen Assessment & Plan (11/20/2022 4:31 PM REAL ESTATE ASSOCIATE): Chronic, uncontrolled but with some mild improvement [...] Tradjenta Assessment & Plan (09/05/2021 3:43 PM REAL ESTATE ASSOCIATE): Hba1c was Lab Results Component Value Date [...] Bydureon Assessment & Plan (11/15/2020 3:55 PM REAL ESTATE ASSOCIATE): Hba1c was Lab Results Component Value Date [...] CGM Assessment & Plan (08/25/2020 3:26 PM REAL ESTATE ASSOCIATE): A1c 7.6. Pt with low health literacy. [...] dose: Assessment & Plan (09/03/2019 3:41 PM REAL ESTATE ASSOCIATE): Your Hba1c today was: Lab Results Component Value Date HGBA1C 7.8 % 09/03/2019 meaning a 3 month average sugar of : 174 Your goal hba1c is under 7.0 to prevent penitentiary diabetes complications ( eye , kidney and [...] goal hba1c is under 7.0 to prevent product marketer diabetes complications ( eye , kidney and [...] dose Assessment & Plan (10/07/2018 3:51 PM REAL ESTATE ASSOCIATE): Hba1c was Lab Results Component Value Date [...] hypoglycemia. Assessment & Plan (10/10/2017 4:22 PM REAL ESTATE ASSOCIATE): A1c 7.0 with rare lows. No change to current medication plan. Continue with weight loss efforts. Discuss improved A1c with analyst business analysis to see if it is appropriate to [...] (01/25/2017): Acute upper respiratory infections of unspecified Immunizations Immunization Administration Dates Next Due Moderna SARS-CoV-2 Monovalent Vaccination (12+ Y RS) 07/30/2021 Social History Tobacco Use Types Packs/Day Years [...] on file Legal Sex Male 2:43 AM REAL ESTATE ASSOCIATE Gender Identity Male 11/20/2021 5:50 PM REAL ESTATE ASSOCIATE Sexual Orientation Straight 11/20/2021 5: 50 PM REAL ESTATE ASSOCIATE Last Filed Vital Signs Vital Sign Reading [...] 02/04/2025 1:02 PM CDT Plan of Treatment Not on file Procedures Procedure Name Priority Date/Time Associated Diagnosis Comments HM DIABETES EYE EXAM Routine 03/31/2025 8:28 AM CDT ALBUMIN CREATININE RATIO, URINE Routine 02/26/2025 10:44 AM CDT LIPID PANEL Routine 02/26/2025 10:44 AM CDT POCT HEMOGLOBIN A1C Routine 02/04/2025 1 :10 PM CDT Type 2 diabetes mellitus with hyperglycemia, with long-term current use of insulin (HCC) COMPREHENSIVE METABOLIC PANEL Routine 11/27/2024 12:00 AM REAL ESTATE ASSOCIATE PSA, TOTAL Routine 06/14/2022 from Last 3 Months or Most Recently Relevant to Health Maintenance Results * DIABETES EYE EXAM (03/31/2025 8:28 AM CDT) Historical Provider HEALTH MAINTENANCE Final Result * [...] Annamaria Solis NP LAB URINE ORDERABLES Rosibel l Result Performing Organization Address [facility]/ZIP Co de Phone Number DULCE [facility]da [address] [address] [facility] [place]E [place] [address] * (ABNORMAL) Lipid panel (02/26/2025 10:44 AM CDT) Cholesterol 162 <200 mg/dL Dulce Senor [facility] HDL 29(L) > OR = 40 mg/dL [facility] Baldwin Triglycerides 423(H) <150 mg/dL [facility] Baldwin Comment: If a non-fasting specimen was collected, consider repeat triglyceride testing on a fasting specimen if clinically indicated. Taj et al. J. of Clin. Lipidol. 2015;9:129-169. LDL mg/dL (calc) Dulce [employer] Baldwin Comment: LDL cholesterol not calculated. Triglyceride levels greater than 400 mg/dL invalidate calculated LDL results. Reference range: <100 Desirable range <100 mg/dL for primary prevention; <70 mg/dL for patients with CHD or diabetic patients with > or = 2 CHD risk factors. LDL-C is now calculated using the Clovis-Aleksey calculation, which is a validated novel method providing better accuracy than the Friedewald equation in the estimation of LDL-C. Clovis SS et al. RAUL. 2013;310(19): 0695-7281 (http://education.Fluentify/faq/CKK487) Chol/HDL ratio 5.6(H) <5.0 (calc) Dulce [employer] Baldwin Non-HDL, (LDL+VLDL) 133(H) <130 mg/dL (calc) [facility] Baldwin Comment: For patients with diabetes plus 1 major ASCVD risk factor, treating to a non-HDL-C goal of <100 mg/dL (LDL-C of <70 mg/dL) is considered a therapeutic option. 02/26/2025 10:4 4 AM CDT 02/26/2025 10:45 AM CDT Narrative [facility] - 02/27/2025 3:21 AM CDT FASTING:YES FASTING: YES us Annamaria Solis NP LAB BLOOD ORDERABLES Rosibel l Result DULCE [facility] [address] [place] [address] * (ABNORMAL) POCT hemoglobin A1c (02/04/2025 1:10 PM CDT) Pathologist [facility] Hemoglobin A1C, POC 9.3 4.0 - 5.6 % Blood 02/04/2025 1:10 PM CDT Annamaria Solis FIELD MARKETING REPRESENTATIVE POINT OF CARE TEST ORDERA BLES Final Result * (ABNORMAL) Comprehensive metabolic panel (11/27/2024 12:00 AM REAL ESTATE ASSOCIATE) Pathologist [facility] SCRIBED Sodium 138 135 - 146 mmol/L [...] 35 Units/L [facility] SCRIBED eGFR in NonAfrican [place] 78 >=60 - NA [facility] Blood 11/27/2024 Historical Provider LAB BLOOD ORDERABLES Edit ed Result - Final [facility] * PSA, total Blood (06/14/2022) Pathologist [facility] SCRIBED PSA, Total 0.33 NA - NA [facility] Blood 06/14/2022 us Historical Provider LAB BLOOD ORDERABLES Edit ed Result - Final [facility] [address] [phone] from Last 3 Months or Most Recently Relevant to Health Maintenance Insurance [facility] MEDICARE ADVANTAGE [facility] MEDIC[facility] Care Teams Group Reservations Coordinator Relationship Specialty Start Date End Date Sven Stoddard MD PCP - General 01/18/17
--- OUTSIDE RECORDS SUMMARY | 2025-05-19 09:27 | XMS_ITS | Continuity of Care Document ---
Author Organization [facility] Address [address] [place] [address] Phone Care Team Providers Care Valve Fitter Name Role Phone Jung OD, Naldo Unavailable Unavailable Procedures Procedure Date Eye Exam & Treatment Refraction Eye Exam & Treatment Post-op Follow-up Visit Post-op Follow-up Visit Post-op Follow-up Visit BF Plastic Sphcyl Willard To +/-4d .12-2d Vision Svcs Frames Purchases [...] Diagnoses Date Provider Providers Copied on Encounter [facility], [address], [place], [place], [id number], [place] tel:[phone] SEC [facility] No Information Oct-2 6-201 0 Jung OD Naldo. [address] , [address], [place], [address], [place]. tel:[phone] [facility], [address] [place] [address] [address], [place], [place], [id number], [place] tel:[phone] [facility] [place] No Information Jul-2 7-200 9 Jung OD Naldo. [address] [place] [address] , [address], [place], [address], [place]. tel:[phone] [facility], [address] [place] [address] [address], [place], [place], [id number], [place] tel:[phone] [facility] [place] No Information Charly-2 1-200 9 Jung OD Naldo. [address] [place] [address] , [address], [place], [address], [place]. tel:[phone] [facility], [address] [place] [address] [address], [place], [place], [id number], [place] tel:[phone] [facility] [place] No Information Oct-0 7-200 9 Jung OD Naldo. [address] [place] [address] [address] , [address], [place], [address], [place]. tel:[phone] [facility], [address] [place] [address] [address], [place], [place], [id number], [place] tel:[phone] SEC [facility] No Information Dec-3 1-200 8 Jung OD Naldo. [address] [place] [address] [address] , [address], [place], [address], [place]. tel:[phone] [facility], [address] [place] [address] [address], [place], [place], [id number], [place] tel:[phone] SEC [facility] No Information Dec-3 1-200 8 [facility] [employer] . [address] [facility], [address], [place], [place], [id number], [place]. tel:[phone] Referring Provider: Naldo Jung OD A, [address] [place], [place] [address]ate [address], [place], [address]. tel:[phone] sulting Provider: Jamil Smith, [address], [place], [place], [facility] tel:[phone] [facility], [address], [place], [place], [id number], [place] tel:[phone] SEC [facility] No Information Dec-1 7-200 8 Alexsander Billings. [address] [place], [place] [address]ate Center , [address], [place], [place], [facility], [place]. tel:[phone] [facility], [address], [place], [place], [id number], [place] tel:[phone] [facility] No Information Dec-1 6-200 8 Alexsander Billings. [address] [place], [place] [address]ate [place] , [address], [place], [place], [facility], . tel:[phone] [facility], [address] [place] [address] [address], [place], [place], [id number], [place] tel:[phone] [facility] No Information Nov-2 6-200 8 Alexsander Billings. [address] [place], [place] [address]ate [place] , [address], [place], [place], [facility], [place]. tel:[phone] Referring Provider: Manuelito Lion, [address] [place], [place] [address]ate [address], [place], [place], [facility] tel:[phone] [facility], [address], [place], [place], [id number], [place] tel:[phone] [facility] No Information Nov-1 2-200 8 Alexsander Billings. [address] [place], [place] [address]ate [place] , [address], [place], [place], [facility], [place]. tel:[phone] [facility], [address], [place], [place], [id number], [place] tel:[phone] [facility] No Information Nov-1 1-200 8 Alexsander Billings. [address] [facility] [address] , [address], [place], [address], . tel:[phone] [facility], [address] [place] [address] [address], [place], [place], [id number], tel:[phone] [facility] No Information 3 200 8 Alexsander Billings. [address] [place], [place] [address]ate Center , [address], [place], [place], [facility], . tel:[phone] Referring Provider: Naldo Lion, [address] [place], [place] [address]ate [place] [address], [place], [place], [facility] tel:[phone] [facility], [address] [place] [address] [address], [place], [place], [id number], tel:[phone] [facility] [place] No Information 8 Jung OD Naldo. [address] [place] [address] [address] , [address], [place], [address], . tel:[phone] Family History Family Member Type Diagnosis Age At Onset No Information Payers Payer name Insurance type Covered democrat ID Authoriza tion(s) No Information Social History [...]
[2025-05-19 09:47] LABS: Hematocrit 40.3 % (42.0-52.0); Hemoglobin 12.8 g/dL (14.0-18.0); Immature Granulocyte Percent A 1.0 % (0-0.5); Lymphocytes Absolute Auto 1.67 K/mm3 (0.9-3.2); Mean Corpuscular HGB Conc 31.8 g/dl (32-36); Mean Corpuscular Hemoglobin 25.4 pg (26-34); Mean Corpuscular Volume 80.0 fl (80-100); Nucleated Red Blood Cells Absolute Auto 0.000 K/mm3 (0.0-0.012); Nucleated Red Blood Cells Perc 0.0 % (0.0-0.2); Platelet Count Result 256 k/mm3 (150-375); Red Blood Count 5.04 M/mm3 (4.6-6.20); White Blood Count 7.3 K/mm3 (4.5-10.0)
--- NOTE | 2025-05-19 09:54 | ED.GENADULT ---
HPI - General Adult General Chief complaint: Weakness Stated complaint: feel so weak Time Seen by Provider: 05/19/25 09:34 History of Present Illness HPI narrative: 64-year-old male presents with generalized weakness since waking up. Patient states weakness is all over. Patient denies any chest pain, shortness of breath, abdominal pain. Patient currently has an indwelling Cowan for the last 2 weeks related to urinary retention. Patient states he did have bladder biopsy 2 weeks ago but does not know the results. Patient has no other Onset (ago): hour(s) (Three) Related Data Home Medications ?Medication ?Instructions ?Recorded ?Confirmed ?Last Taken ?Type albuterol sulfate 90 mcg/actuation 2 puff inhalation Q4H PRN 04/14/25 04/18/25 04/17/25 History aerosol inhaler shortness of breath or wheezing cholecalciferol (vitamin D3) 50 2,000 unit PO DAILY 04/14/25 04/18/25 04/17/25 History mcg (2,000 unit) tablet (Vitamin D3) empagliflozin 25 mg tablet 25 mg PO DAILY 04/14/25 04/18/25 04/17/25 History (Jardiance) fenofibrate micronized 134 mg 134 mg PO DAILY 04/14/25 04/18/25 04/17/25 History capsule hydrochlorothiazide 25 mg tablet 25 mg PO DAILY 04/14/25 04/18/25 04/17/25 History lisinopril 40 mg tablet 40 mg PO DAILY 04/14/25 04/18/25 04/17/25 History magnesium 250 mg tablet 250 mg PO DAILY 04/14/25 04/18/25 04/17/25 History mometasone-formoterol HFA 100 2 puff inhalation Q12H 04/14/25 04/18/25 04/17/25 History mcg-5 mcg/actuation aerosol inhaler (Dulera) omega-3 acid ethyl esters 1 gram 2 cap PO BID 04/14/25 04/18/25 04/17/25 History capsule ropinirole 1 mg tablet 1 mg PO DAILY 04/14/25 04/18/25 04/17/25 History ropinirole 2 mg tablet 2 mg PO HS 04/14/25 04/18/25 04/17/25 History simvastatin 40 mg tablet 40 mg PO DAILY 04/14/25 04/18/2504/17/25 History benzonatate 200 mg capsule 200 mg PO Q8H PRN cough 04/18/25 04/18/25 04/17/25 History Allergies Allergy/AdvReac Type Severity Reaction Status Date / Time No Known Allergies Allergy Verified 05/19/25 09:27 Review of Systems Review of Systems: A 10 system review of systems was completed on the patient and is negative except for what is stated in the HPI. Nursing and ancillary documentation was reviewed. [facility] Past Medical History Medical History Sleep apnea COPD (chronic obstructive pulmonary disease) Hypertension Diabetes Surgical History Surgical History History of knee surgery Meniscus repair Family History Family History Mother Heart disease Social History Social History Social History: Lives at home alone is independent with daily activities. PCP is Dr. Stoddard. Full code. LEIGH ANN is Sarah, sister Smoking packs per day: 2 Smoking cigarettes per day: 40.0 Years smoked: 20 Smoking pack-years: 40.00 Smoking status: Former smoker Alcohol intake: never Substance use: never Do You Feel Safe in your Home?: Yes Lack of Transportation: No Lack of Food: Never True Current Housing: I Have Housing Concerned About Future Housing: No Difficulty Paying Gas/Electric Bills: No Difficulty Paying for Meds: No Currently Unemployed: No Education: High School Diploma/GED Difficulty w/ Childcare or Family Care: No Living arrangements: alone Spiritual care concerns: No Exam Narrative: GENERAL: Well-appearing, well-nourished, and in no acute distress. HEAD: Normocephalic, atraumatic. EYES: PERRLA and EOMI. ENT: Nares clear, no rhinorrhea or epistaxis. Mucous membranes moist. NECK: Supple. CHEST: Clear to auscultation. No respiratory distress. HEART: Regular rate and rhythm. No murmur heard. Normal peripheral pulses. ABDOMEN: Soft, nontender, nondistended, normal active bowel sounds. EXTREMITIES: Normal range of motion. No edema. SKIN: Warm, dry, no rash. NEURO: No focal deficits. Alert and oriented x3. PSYCH: Normal mood and affect. Course Course Emergency Course: Labs, chest x-ray, CT head ordered. Normal saline ordered at 150 ml/hr. Patient neuro exam is within normal WAREHOUSE RECEIVING CLERK/PA Physician Supervision Dr. Harrington Reevaluation(s) Reevaluation #1: Patient is feeling better after fluids Date: 05/19/25 Time: 11:45 Vital Signs Vital signs: Vital Signs Temperature 36.7 C 05/19/25 09:20 Pulse Rate 71 05/19/25 09:20 Respiratory Rate 15 05/19/25 09:20 Blood Pressure 156/72 H 05/19/25 09:20 Pulse Oximetry 100 05/19/25 09:20 Oxygen Delivery Room Air 05/19/25 09:20 Temperature 36.7 C 05/19/25 09:20 Pulse Rate 73 05/19/25 09:37 Respiratory Rate 15 05/19/25 09:20 Blood Pressure 156/72 H 05/19/25 09:20 Pulse Oximetry 99 05/19/25 09:38 Oxygen Delivery Room Air 05/19/25 09:38 Medical Decision Making MDM Narrative Medical decision making narrative: Patient worked up for generalized weakness. Patient had slight bacteria in his urine Cowan. Patient in kidney function is normal related to recent MARIA D. Patient has CT is negative. Patient's white count is normal. Patient's Cowan has been changed. Will start on antibiotics for slight UTI. Patient has follow-up with Urology in 2 weeks. Patient states he is feeling better after fluids. Patient feels comfortable going home. Differential Diagnosis Differential Diagnosis: Acute kidney failure vs infection vs electrolyte abnormality vs cva vs pna vs acs Vital Signs Vital Signs: Vital Signs Temperature 36.7 C 05/19/25 09:20 Pulse Rate 71 05/19/25 09:20 Respiratory Rate 15 05/19/25 09:20 Blood Pressure 156/72 H 05/19/25 09:20 Pulse Oximetry 100 05/19/25 09:20 Oxygen Delivery Room Air 05/19/25 09:20 Temperature 36.7 C 05/19/25 09:20 Pulse Rate 73 05/19/25 09:37 Respiratory Rate 15 05/19/25 09:20 Blood Pressure 156/72 H 05/19/25 09:20 Pulse Oximetry 99 05/19/25 09:38 Oxygen Delivery Room Air 05/19/25 09:38 Lab Data 05/19/25 09:37 05/19/25 09:37 Labs: Lab Results 05/19/25 Range/Units 09:37 WBC 7.3 (4.5-10.0) K/mm3 RBC 5.04 (4.6-6.20) M/mm3 Hgb 12.8 L (14.0-18.0) g/dL Hct 40.3 L (42.0-52.0) % MCV 80.0 (80-100) fl MCH 25.4 L (26-34) pg MCHC 31.8 L (32-36) g/dl RDW 15.9 H (11.5-14.5) % Plt Count 256 (150-375) k/mm3 MPV 9.7 (7.4-10.4) fl Immature Gran % (Auto) 1.0 H (0-0.5) % Neut % (Auto) 62.8 (45.5-73.1) % Lymph % (Auto) 23.0 (18.3-44.2) % [place] % (Auto) 8.6 H (2.6-8.5) % Eos % (Auto) 3.9 (0-4.4) % Baso % (Auto) 0.7 (0.2-1.2) % Lymph # (Auto) 1.67 (0.9-3.2) K/mm3 [place] # (Auto) 0.6 (0.1-0.6) K/mm3 Eos # (Auto) 0.3 (0-0.3) K/mm3 Baso # (Auto) 0.1 (0.0-0.1) K/mm3 Abs Immat Gran (auto) 0.07 H (0.00-0.031) K/mm3 Absolute Neuts (auto) 4.6 (1.3-6.7) K/mm3 Absolute Nucleated RBC 0.000 (0.0-0.012) K/mm3 Nucleated RBC % 0.0 (0.0-0.2) % Sodium 134 L (137-145) mmol/L Potassium 4.3 (3.4-5.0) mmol/L Chloride 99 (98-107) mmol/L Carbon Dioxide 26 (22-30) mmol/L Anion Gap 9 (4-12) mmol/L BUN 29 H (9-20) mg/dL Creatinine 1.18 (0.7-1.3) mg/dL Estim Creat Clear Calc 74 ml/min Estimated GFR > 60 (59 - ) Glucose 166 H (65-110) mg/dL Calcium 9.8 (8.4-10.2) mg/dL Magnesium 2.2 (1.6-2.3) mg/dL Total Bilirubin 0.3 (0.2-1.3) mg/dL AST 40 (17-59) U/L ALT 37 (6-50) U/L Alkaline Phosphatase 58 (38-126) U/L Total Protein 8.3 H (6.3-8.2) g/dL Albumin 4.4 (3.5-5.1) g/dL Urine Color Yellow (Yellow) Urine Appearance Clear (Clear) Urine pH 5.5 (5.0-9.0) Ur Specific [place] 1.010 (1.001-1.035) Urine Protein Negative (Negative) mg/dL Urine Glucose (UA) Negative (Negative) mg/dL Urine Ketones Negative (Negative) mg/dL Ur Blood (Man) Negative (Negative) Urine Nitrate Negative (Negative) Urine Bilirubin Negative (Negative) Urine Urobilinogen 0.2 (<2.0) mg/dL Add Ur Microanalysis Reviewed Leukocyte Esterase Rfl 1+ H (Negative) CATHIE/UL Urine RBC 0-2 (0-2) /hpf Urine WBC 0-5 (0-3) /hpf Ur Squamous Epith Cells None seen (Few) /hpf Urine Bacteria None seen /hpf Urine Casts 0-2 ECG Data EKG #1: Attestation: I personally reviewed and interpreted this ECG as follows: ECG completion date: 05/19/25 Interpretation: Normal sinus rhythm at 67 beats per minute EKG Interpretation: normal rate Discharge Plan Discharge Clinical Impression: Weakness UTI (urinary tract infection) Qualifiers: Urinary tract infection type: acute cystitis Hematuria presence: without hematuria Qualified Code(s): N30.00 - Acute cystitis without hematuria Patient Disposition: Home Condition: Improved Instructions: Antibiotic Form, Catheter-associated Urinary Tract Infection (ED) Additional Instructions: Take medication as prescribed Increase clear fluid Follow-up primary care doctor Patient Language: French Prescriptions: New cephalexin 500 mg capsule 500 mg PO Q12H Qty: 14 0RF No Action Jardiance 25 mg tablet 25 mg PO DAILY fenofibrate micronized 134 mg capsule 134 mg PO DAILY magnesium 250 mg tablet 250 mg PO DAILY ropinirole 1 mg tablet 1 mg PO DAILY ropinirole 2 mg tablet 2 mg PO HS simvastatin 40 mg tablet 40 mg PO DAILY lisinopril 40 mg tablet 40 mg PO DAILY omega-3 acid ethyl esters 1 gram capsule 2 cap PO BID albuterol sulfate 90 mcg/actuation HFA aerosol inhaler 2 puff INHALATION Q4H PRN (Reason: shortness of breath or wheezing) Dulera 100-5 mcg/actuation HFA aerosol inhaler 2 puff INHALATION Q12H hydrochlorothiazide 25 mg tablet 25 mg PO DAILY cholecalciferol (vitamin D3) [Vitamin D3] 50 mcg (2,000 unit) tablet 2,000 unit PO DAILY tamsulosin 0.4 mg Capsule 0.4 mg PO QHS Qty: 30 0RF benzonatate 200 mg capsule 200 mg PO Q8H PRN (Reason: cough) insulin aspart U-100 [Novolog U-100 Insulin aspart] 100 unit/mL Solution 10 unit subcut TIDWM Qty: 10 0RF insulin glargine [Lantus U-100 Insulin] 100 unit/mL Solution 20 unit subcut HS Qty: 10 0RF tamsulosin 0.4 mg Capsule 0.4 mg PO HS Qty: 90 0RF finasteride [Proscar] 5 mg Tablet 5 mg PO QAM Qty: 90 0RF Ozempic 1 mg/dose (4 mg/3 mL) pen injector 1 mg subcut WEEKLY Qty: 3 2RF Follow-up/Referrals: Arlyn,Sven Terrell MD [Primary Care Provider] - 2 Days Time of Disposition: 12:20
--- OUTSIDE RECORDS SUMMARY | 2025-05-19 10:02 | XMS_ITS | Clinical Summary ---
Author Organization [facility] [address] [place] Address [address] [place] [address] Care Team Providers Care Fruit Tester Name Role Phone Sven Stoddard MD Primary [...] hyperglycemia, with long-term current use of insulin ([facility]) 65 units before breakfast & lunch, [...] hyperglycemia, with long-term current use of insulin ([facility]) 65 units before breakfast & lunch, 75 before dinner 150 mL 3 5 Active insulin degludec (TRESIBA) 200 unit/mL (3 mL) pen for injectionIndica tions:Type 2 diabetes mellitus with hyperglycemia, with long-term current use of insulin ([facility]) Inject 1 mL (200 Units total) under the skin daily 90 mL 3 5 10/26/19 26 Active Vascepa 1 gram capsule TAKE 2 CAPSULES(2 GRAMS) BY MOUTH TWICE DAILY 120 capsule 3 5 Active empagliflozin (JARDIANCE) 25 mg tabletIndicatio ns:Type 2 diabetes mellitus with hyperglycemia, with long-term current use of insulin ([facility]) Take 1 tablet (25 mg total) [...] hyperglycemia, with long-term current use of insulin ([facility]) USE DIRECTED FOUR TIMES DAILY 400 each 2 5 Active Farxiga 10 mg tablet Take 1 tablet (10 mg total) by mouth daily Active rOPINIRole (REQUIP) 2 mg tablet 5 Active OneTouch Verio Flex meter miscIndications :Type 2 diabetes mellitus with hyperglycemia, with long-term current use of insulin ([facility]) Check blood sugars twice daily 1 each 5 Active lancets 30 gauge miscIndications :Type 2 diabetes mellitus with hyperglycemia, with long-term current use of insulin ([facility]) Check blood sugar twice daily 200 each 3 5 Active semaglutide (Ozempic) 0.25 mg or 0.5 mg (2 mg/3 mL) pen injector injectionIndica tions:Type 2 diabetes mellitus with hyperglycemia, with long-term current use of insulin ([facility]) INJECT 0.5 MG UNDER THE SKIN ONCE A WEEK 9 mL 1 5 Active OneTouch Verio test strips stripIndication s:Type 2 diabetes mellitus with hyperglycemia, with long-term current use of insulin ([facility]) Check blood sugar three times daily 300 strip 3 5 Active Active Problems Problem Noted Date Diagnosed Date Numbness and tingling in right hand 11/26/2023 Assessment & Plan (11/26/2023 3:51 PM SENIOR INSTRUCTIONAL DESIGNER): Probably DN Will have him see neurology, Dr Mcmanus Hyperlipidemia associated with type 2 diabetes prosper chapa 04/17/2018 Assessment & Plan (02/04/2025 1:01 PM CDT): Chronic problem. Not at goal on current Simvastatin 40mg, lovaza 2gm bid, fenofibrate 135mg daily. Last lipid panel: 12/05/23 LDL=86, CX=324. Will update labs. Verified that he uses [facility]. Aware to check results/results letter in [facility]. Will contact by phone if needed. Assessment & Plan (10/26/2024 3:30 PM SENIOR INSTRUCTIONAL DESIGNER): Chronic unknown status Continue statin and Vascepa, Patient is getting some blood work that has been ordered by PCP Assessment & Plan (11/26/2023 3:49 PM SENIOR INSTRUCTIONAL DESIGNER): With elevated TG Diet and exercise Low carb low fat diet Continue statin and Vascepa, Update lipid profile Assessment & Plan (05/07/2023 3:22 PM CDT): Uncontrolled hypertriglyceridemia Low fat low carb diet emphasized Continue pravastatin , vascepa and fenofibrate Assessment & Plan (11/20/2022 4:30 PM SENIOR INSTRUCTIONAL DESIGNER): Uncontrolled, with significant hypertriglyceridemia Importance of diet and exercise was explained Continue current regimen including atorvastatin, fenofibrate and Vascepa Assessment & Plan (03/13/2022 3:50 PM CDT): Chronic, well controlled Low fat Low cholesterol diet Exercise Continue statin therapy with Simvastatin Assessment & Plan (09/05/2021 3:44 PM SENIOR INSTRUCTIONAL DESIGNER): Low chol low fat diet Exercise Continue Fenofibrate, Simvastatin Assessment & Plan (11/15/2020 3:55 PM SENIOR INSTRUCTIONAL DESIGNER): Goal of treatment , LDL cholesterol less [...] therapy Assessment & Plan (08/25/2020 3:17 PM SENIOR INSTRUCTIONAL DESIGNER): Continue statin, fibrate and omega 3. Would [...] therapy Assessment & Plan (09/03/2019 3:41 PM SENIOR INSTRUCTIONAL DESIGNER): Goal of treatment , LDL cholesterol less [...] 04/02/2017 Assessment & Plan (08/25/2020 3:16 PM SENIOR INSTRUCTIONAL DESIGNER): Wt is continuing to increase with lack of attention to diet and exercise. Reminded to decreasing snacking and ice cream. Assessment & Plan (05/19/2020 3:28 PM CDT): Importance of following diet and exercising discussed. Morbid obesity with BMI of 40.0-44.9, adult 03/21 Assessment & Plan (10/26/2024 3:31 PM SENIOR INSTRUCTIONAL DESIGNER): Counseled on diet and exercise Assessment & Plan (05/07/2019 3:23 PM CDT): Diet and exercise were discussed Assessment & Plan (01/15/2018 2:16 PM CDT): Importance of following diet and exercising discussed. Assessment & Plan (10/10/2017 4:14 PM SENIOR INSTRUCTIONAL DESIGNER): Continue diet and weight loss efforts with [...] mychart. Aware to check results/results letter in [email or web address]. Will contact by phone if needed. Assessment & Plan (10/26/2024 3:30 PM SENIOR INSTRUCTIONAL DESIGNER): Chronic, well controlled Continue Lisinopril Assessment & Plan (11/26/2023 3:50 PM SENIOR INSTRUCTIONAL DESIGNER): Chronic, well controlled Continue Lisinopril Update MA Assessment & Plan (05/07/2023 3:21 PM CDT): Chronic, well controlled Continue Lisinopril Update GFR Assessment & Plan (11/20/2022 4:30 PM SENIOR INSTRUCTIONAL DESIGNER): Chronic, well-controlled Continue current regimen including lisinopril Assessment & Plan (07/17/2022 3:38 PM CDT): Well controlled Continue current meds Check MA Assessment & Plan (03/13/2022 3:50 PM CDT): Chronic, well controlled Continue current meds Assessment & Plan (09/05/2021 3:44 PM SENIOR INSTRUCTIONAL DESIGNER): Goal blood pressure is less than 140/85 [...] Lisinopril Assessment & Plan (11/15/2020 3:55 PM SENIOR INSTRUCTIONAL DESIGNER): Goal blood pressure is less than 140/85 Low salt diet was discussed andd recommended The importance of daily aerobic exercise was also emphasized. Continue current meds, including ZURI-I or ARB, e.g. Check microalbumin Assessment & Plan (08/25/2020 3:17 PM SENIOR INSTRUCTIONAL DESIGNER): Controlled on current medications. Continue plan. Assessment & Plan (05/19/2020 3:29 PM CDT): Controlled on current medications. Continue plan. Assessment & Plan (01/07/2020 3:24 PM CDT): Goal blood pressure is less than 140/85 Low salt diet recommended Daily aerobic exercise Continue current meds, including ZURI-I or ARB with Lisinopril Assessment & Plan (09/03/2019 3:42 PM SENIOR INSTRUCTIONAL DESIGNER): Goal blood pressure is less than 140/85 Low salt diet recommended Daily aerobic exercise Continue current meds, including ZURI-I or ARB with Lisinopril Assessment & Plan (10/07/2018 3:51 PM SENIOR INSTRUCTIONAL DESIGNER): Goal blood pressure is less than 140/85 [...] medications. Assessment & Plan (10/10/2017 4:14 PM SENIOR INSTRUCTIONAL DESIGNER): Controlled on current medications. Assessment & Plan [...] eye exam (05/06/24 no DMR [employer] [facility]) Will update labs. Verified that he uses [facility]. Aware to check results/results letter in [facility]. Will contact by phone if needed. Discussed [...] infection. Assessment & Plan (10/26/2024 3:30 PM SENIOR INSTRUCTIONAL DESIGNER): Chronic, uncontrolled, worsening Recheck hemoglobin A1c As [...] months Assessment & Plan (11/26/2023 3:48 PM SENIOR INSTRUCTIONAL DESIGNER): Hba1c was Lab Results Component Value Date [...] regimen Assessment & Plan (11/20/2022 4:31 PM SENIOR INSTRUCTIONAL DESIGNER): Chronic, uncontrolled but with some mild improvement [...] Tradjenta Assessment & Plan (09/05/2021 3:43 PM SENIOR INSTRUCTIONAL DESIGNER): Hba1c was Lab Results Component Value Date [...] Bydureon Assessment & Plan (11/15/2020 3:55 PM SENIOR INSTRUCTIONAL DESIGNER): Hba1c was Lab Results Component Value Date [...] CGM Assessment & Plan (08/25/2020 3:26 PM SENIOR INSTRUCTIONAL DESIGNER): A1c 7.6. Pt with low health literacy. [...] dose: Assessment & Plan (09/03/2019 3:41 PM SENIOR INSTRUCTIONAL DESIGNER): Your Hba1c today was: Lab Results Component Value Date HGBA1C 7.8 % 09/03/2019 meaning a 3 month average sugar of : 174 Your goal hba1c is under 7.0 to prevent advertising account representative diabetes complications ( eye , kidney and [...] goal hba1c is under 7.0 to prevent advertising account representative diabetes complications ( eye , kidney and [...] dose Assessment & Plan (10/07/2018 3:51 PM SENIOR INSTRUCTIONAL DESIGNER): Hba1c was Lab Results Component Value Date [...] hypoglycemia. Assessment & Plan (10/10/2017 4:22 PM SENIOR INSTRUCTIONAL DESIGNER): A1c 7.0 with rare lows. No change to current medication plan. Continue with weight loss efforts. Discuss improved A1c with legislative aide to see if it is appropriate to [...] Team Description 04/19/2025 Telephone [facility] [address] [phone] Shandra Reid MD 04/06/2025 Orders Only [facility] Diabetes and Endocrinology [address] [place] [phone] ProviderGill MD 03/19/2025 Telephone [facility] [address] [phone] Annamaria Solis NP 03/01/2025 Results Follow-Up [facility] Diabetes [facility] Endocrinology [address] [place] [phone] Annamaria Solis, EMMANUEL Lipid panel, Albumin [...] on file Legal Sex Male 2:43 AM SENIOR INSTRUCTIONAL DESIGNER Gender Identity Male 11/20/2021 5:50 PM SENIOR INSTRUCTIONAL DESIGNER Sexual Orientation Straight 11/20/2021 5: 50 PM SENIOR INSTRUCTIONAL DESIGNER Obstetrics History Last Filed Vital Signs Vital [...] COMPREHENSIVE METABOLIC PANEL Routine 11/27/2024 12:00 AM SENIOR INSTRUCTIONAL DESIGNER PSA, TOTAL Routine 06/14/2022 from Last 3 [...] LAB URINE ORDERABLES Rosibel hiram Result [facility] [address] [facility] [place] [phone] * (ABNORMAL) Lipid panel (02/26/2025 10:44 AM CDT) Cholesterol 162 <200 mg/dL Online [facility] HDL 29(L) > OR = 40 mg/dL Online [facility] Triglycerides 423(H) <150 mg/dL [facility] Comment: If a non-fasting specimen was collected, consider repeat triglyceride testing on a fasting specimen if clinically indicated. Taj et al. J. of Clin. Lipidol. 2015;9:129-169. LDL mg/dL (calc) [facility] Comment: LDL cholesterol not calculated. Triglyceride [...] LDL-C. [place] SILVER et al. RAUL. 2013;310(19): 2285-9836 (http://education.[employer]/faq/CRH731) Chol/HDL ratio 5.6(H) <5.0 (calc) Online [facility] Non-HDL, (LDL+VLDL) 133(H) <130 mg/dL (calc) [facility] Comment: For patients with diabetes plus 1 major ASCVD risk factor, treating to a non-HDL-C goal of <100 mg/dL (LDL-C of <70 mg/dL) is considered a therapeutic option. 02/26/2025 10:4 4 AM CDT 02/26/2025 10:45 AM CDT Narrative [facility] - 02/27/2025 3:21 AM CDT FASTING:YES FASTING: YES us Annamaria Solis NP LAB BLOOD ORDERABLES Rosibel l [facility] [address] [place] [address] * (ABNORMAL) POCT hemoglobin A1c (02/04/2025 1:10 PM CDT) Hemoglobin A1C, POC 9.3 4.0 - 5.6 % Blood 02/04/2025 1:10 PM CDT us Annamaria Solis NP POINT OF CARE TEST ORDERA BLES Final Result * (ABNORMAL) Comprehensive metabolic panel (11/27/2024 12:00 AM SENIOR INSTRUCTIONAL DESIGNER) SCRIBED Sodium 138 135 - 146 mmol/L [...] 35 Units/L [facility] SCRIBED eGFR in NonAfrican [place]i 78 >=60 - NA [facility] Blood 11/27/2024 Historical Provider MD LAB BLOOD ORDERABLES Edit ed Result - Final [facility] * PSA, total Blood (06/14/2022) SCRIBED PSA, Total 0.33 NA - NA [facility] Blood 06/14/2022 Historical Provider LAB BLOOD ORDERABLES Edit ed Result - Final [facility] [address] [id number] [phone] from Last 3 Months or Most Recently Relevant to Health Maintenance Insurance [facility] [place] [facility] [place] [facility] Address: [facility] [address] [place] [address] [facility] [place] MED[place]ANTAGE Care Teams Fruit Tester Relationship Specialty Start Date End Date Sven Stoddard MD PCP - General 01/18/17
--- OUTSIDE RECORDS SUMMARY | 2025-05-19 10:02 | XMS_ITS | Referral Summary ---
Author Organization [address] Address [address] [place] [id number] Care Team Providers Care Laborer [address] Name Role Phone Sven Stoddard MD Primary Care Provider [phone] Encounters Date Type Department Care Team Description 04/19/2025 Telephone [facility] [address] [address] Shandra Reid MD 04/06/2025 Orders Only [facility] Diabetes and Endocrinology [address] [place] [phone] ProviderGill MD 03/19/2025 Telephone [facility] [address] [address] Annamaria Solis NP 03/01/2025 Results Follow-Up [facility] Diabetes and Endocrinology [address] [place] [phone] Annamaria Solis NP Lipid panel, Albumin [...] hyperglycemia, with long-term current use of insulin ([facility]) 65 units before breakfast & lunch, 75 before dinner 150 mL 3 5 Active insulin degludec (TRESIBA) 200 unit/mL (3 mL) pen for injectionIndica tions:Type 2 diabetes mellitus with hyperglycemia, with long-term current use of insulin ([facility]) Inject 1 mL (200 Units total) under the skin daily 90 mL 3 5 10/26/19 26 Active Vascepa 1 gram capsule TAKE 2 CAPSULES(2 GRAMS) BY MOUTH TWICE DAILY 120 capsule 3 5 Active empagliflozin (JARDIANCE) 25 mg tabletIndicatio ns:Type 2 diabetes mellitus with hyperglycemia, with long-term current use of insulin ([facility]) Take 1 tablet (25 mg total) by mouth daily 90 tablet 3 5 11/09/19 26 Active omega-3 fatty acids (LOVAZA) 1 gram capsuleIndicati ons:Hyperlipide trinh associated with type 2 diabetes mellitus ([facility]) Take 2 capsules (2 g total) by mouth 2 (two) times a day 360 capsule 3 5 11/09/19 26 Active pen needle, diabetic (BD Ultra-Fine Short Pen Needle) 31 gauge x 5/16 needleIndicatio ns:Type 2 diabetes mellitus with hyperglycemia, with long-term current use of insulin ([facility]) USE DIRECTED FOUR TIMES DAILY 400 each 2 5 Active Farxiga 10 mg tablet Take 1 tablet (10 mg total) by mouth daily Active rOPINIRole (REQUIP) 2 mg tablet 5 Active OneTouch Verio Flex meter miscIndications :Type 2 diabetes mellitus with hyperglycemia, with long-term current use of insulin ([facility]) Check blood sugars twice daily 1 each 5 Active lancets 30 gauge miscIndications :Type 2 diabetes mellitus with hyperglycemia, with long-term current use of insulin ([facility]) Check blood sugar twice daily 200 each 3 5 Active semaglutide (Ozempic) 0.25 mg or 0.5 mg (2 mg/3 mL) pen injector injectionIndica tions:Type 2 diabetes mellitus with hyperglycemia, with long-term current use of insulin ([facility]) INJECT 0.5 MG UNDER THE SKIN ONCE A WEEK 9 mL 1 5 Active OneTouch Verio test strips stripIndication s:Type 2 diabetes mellitus with hyperglycemia, with long-term current use of insulin ([facility]) Check blood sugar three times daily 300 strip 3 5 Active Active Problems Problem Noted Date Diagnosed Date Numbness and tingling in right hand 11/26/2023 Assessment & Plan (11/26/2023 3:51 PM DATE PULLER): Probably DN Will have him see neurology, Dr Mcmanus Hyperlipidemia associated with type 2 diabetes prosper chapa 04/17/2018 Assessment & Plan (02/04/2025 1:01 PM CDT): Chronic problem. Not at goal on current Simvastatin 40mg, lovaza 2gm bid, fenofibrate 135mg daily. Last lipid panel: 12/05/23 LDL=86, PU=412. Will update labs. Verified that he uses [facility]. Aware to check results/results letter in [facility]. Will contact by phone if needed. Assessment & Plan (10/26/2024 3:30 PM DATE PULLER): Chronic unknown status Continue statin and Vascepa, Patient is getting some blood work that has been ordered by PCP Assessment & Plan (11/26/2023 3:49 PM DATE PULLER): With elevated TG Diet and exercise Low carb low fat diet Continue statin and Vascepa, Update lipid profile Assessment & Plan (05/07/2023 3:22 PM CDT): Uncontrolled hypertriglyceridemia Low fat low carb diet emphasized Continue pravastatin , vascepa and fenofibrate Assessment & Plan (11/20/2022 4:30 PM DATE PULLER): Uncontrolled, with significant hypertriglyceridemia Importance of diet and exercise was explained Continue current regimen including atorvastatin, fenofibrate and Vascepa Assessment & Plan (03/13/2022 3:50 PM CDT): Chronic, well controlled Low fat Low cholesterol diet Exercise Continue statin therapy with Simvastatin Assessment & Plan (09/05/2021 3:44 PM DATE PULLER): Low chol low fat diet Exercise Continue Fenofibrate, Simvastatin Assessment & Plan (11/15/2020 3:55 PM DATE PULLER): Goal of treatment , LDL cholesterol less [...] therapy Assessment & Plan (08/25/2020 3:17 PM DATE PULLER): Continue statin, fibrate and omega 3. Would [...] therapy Assessment & Plan (09/03/2019 3:41 PM DATE PULLER): Goal of treatment , LDL cholesterol less [...] 04/02/2017 Assessment & Plan (08/25/2020 3:16 PM DATE PULLER): Wt is continuing to increase with lack of attention to diet and exercise. Reminded to decreasing snacking and ice cream. Assessment & Plan (05/19/2020 3:28 PM CDT): Importance of following diet and exercising discussed. Morbid obesity with BMI of 40.0-44.9, adult 03/21 Assessment & Plan (10/26/2024 3:31 PM DATE PULLER): Counseled on diet and exercise Assessment & Plan (05/07/2019 3:23 PM CDT): Diet and exercise were discussed Assessment & Plan (01/15/2018 2:16 PM CDT): Importance of following diet and exercising discussed. Assessment & Plan (10/10/2017 4:14 PM DATE PULLER): Continue diet and weight loss efforts with [...] mychart. Aware to check results/results letter in [employer]. Will contact by phone if needed. Assessment & Plan (10/26/2024 3:30 PM DATE PULLER): Chronic, well controlled Continue Lisinopril Assessment & Plan (11/26/2023 3:50 PM DATE PULLER): Chronic, well controlled Continue Lisinopril Update MA Assessment & Plan (05/07/2023 3:21 PM CDT): Chronic, well controlled Continue Lisinopril Update GFR Assessment & Plan (11/20/2022 4:30 PM DATE PULLER): Chronic, well-controlled Continue current regimen including lisinopril Assessment & Plan (07/17/2022 3:38 PM CDT): Well controlled Continue current meds Check MA Assessment & Plan (03/13/2022 3:50 PM CDT): Chronic, well controlled Continue current meds Assessment & Plan (09/05/2021 3:44 PM DATE PULLER): Goal blood pressure is less than 140/85 [...] Lisinopril Assessment & Plan (11/15/2020 3:55 PM DATE PULLER): Goal blood pressure is less than 140/85 Low salt diet was discussed andd recommended The importance of daily aerobic exercise was also emphasized. Continue current meds, including ZURI-I or ARB, e.g. Check microalbumin Assessment & Plan (08/25/2020 3:17 PM DATE PULLER): Controlled on current medications. Continue plan. Assessment & Plan (05/19/2020 3:29 PM CDT): Controlled on current medications. Continue plan. Assessment & Plan (01/07/2020 3:24 PM CDT): Goal blood pressure is less than 140/85 Low salt diet recommended Daily aerobic exercise Continue current meds, including ZURI-I or ARB with Lisinopril Assessment & Plan (09/03/2019 3:42 PM DATE PULLER): Goal blood pressure is less than 140/85 Low salt diet recommended Daily aerobic exercise Continue current meds, including ZURI-I or ARB with Lisinopril Assessment & Plan (10/07/2018 3:51 PM DATE PULLER): Goal blood pressure is less than 140/85 [...] medications. Assessment & Plan (10/10/2017 4:14 PM DATE PULLER): Controlled on current medications. Assessment & Plan [...] eye exam (05/06/24 no DMR [employer] [facility] [place]) Will update labs. Verified that he uses [facility]. Aware to check results/results letter in [employer]. Will contact by phone if needed. Discussed [...] infection. Assessment & Plan (10/26/2024 3:30 PM DATE PULLER): Chronic, uncontrolled, worsening Recheck hemoglobin A1c As [...] months Assessment & Plan (11/26/2023 3:48 PM DATE PULLER): Hba1c was Lab Results Component Value Date [...] regimen Assessment & Plan (11/20/2022 4:31 PM DATE PULLER): Chronic, uncontrolled but with some mild improvement [...] Tradjenta Assessment & Plan (09/05/2021 3:43 PM DATE PULLER): Hba1c was Lab Results Component Value Date [...] Bydureon Assessment & Plan (11/15/2020 3:55 PM DATE PULLER): Hba1c was Lab Results Component Value Date [...] CGM Assessment & Plan (08/25/2020 3:26 PM DATE PULLER): A1c 7.6. Pt with low health literacy. [...] dose: Assessment & Plan (09/03/2019 3:41 PM DATE PULLER): Your Hba1c today was: Lab Results Component Value Date HGBA1C 7.8 % 09/03/2019 meaning a 3 month average sugar of : 174 Your goal hba1c is under 7.0 to prevent fpc diabetes complications ( eye , kidney and [...] goal hba1c is under 7.0 to prevent technician terminal and repeater diabetes complications ( eye , kidney and [...] dose Assessment & Plan (10/07/2018 3:51 PM DATE PULLER): Hba1c was Lab Results Component Value Date [...] hypoglycemia. Assessment & Plan (10/10/2017 4:22 PM DATE PULLER): A1c 7.0 with rare lows. No change to current medication plan. Continue with weight loss efforts. Discuss improved A1c with water treatment operator to see if it is appropriate to [...] on file Legal Sex Male 2:43 AM DATE PULLER Gender Identity Male 11/20/2021 5:50 PM DATE PULLER Sexual Orientation Straight 11/20/2021 5: 50 PM DATE PULLER Last Filed Vital Signs Vital Sign Reading [...] COMPREHENSIVE METABOLIC PANEL Routine 11/27/2024 12:00 AM DATE PULLER PSA, TOTAL Routine 06/14/2022 from Last 3 [...] ORDERABLES Rosibel l Result Performing Organization Address [facility]/ZIP Co de Phone Number DULCE epacube-Lynda [address] [address] [facility] CHRISSIE [place] [address] * (ABNORMAL) Lipid panel (02/26/2025 10:44 AM CDT) Cholesterol 162 <200 mg/dL Dulce M.dotSergio Baldwin HDL 29(L) > OR = 40 mg/dL DocLogixSergio Baldwin Triglycerides 423(H) <150 mg/dL epacubeGini Baldwin Comment: If a non-fasting specimen was collected, consider repeat triglyceride testing on a fasting specimen if clinically indicated. Taj et al. J. of Clin. Lipidol. 2015;9:129-169. LDL mg/dL (calc) Dulce Personal MedSystemsGini Baldwin Comment: LDL cholesterol not calculated. Triglyceride [...] LDL-C. Clovis SS et al. RAUL. 2013;310(19): 0921-4272 (http://education.Embedded Chat/faq/KRN302) Chol/HDL ratio 5.6(H) <5.0 (calc) Dulce Personal MedSystem[facility] Baldwin Non-HDL, (LDL+VLDL) 133(H) <130 mg/dL (calc) DocLogixSergio Baldwin Comment: For patients with diabetes plus 1 major ASCVD risk factor, treating to a non-HDL-C goal of <100 mg/dL (LDL-C of <70 mg/dL) is considered a therapeutic option. 02/26/2025 10:4 4 AM CDT 02/26/2025 10:45 AM CDT Narrative [facility] - 02/27/2025 3:21 AM CDT FASTING:YES FASTING: YES us Annamaria Solis NP LAB BLOOD ORDERABLES Rosibel l Result [facility] [address] [place] [address] * (ABNORMAL) POCT hemoglobin A1c (02/04/2025 1:10 PM CDT) Pathologist [facility] Hemoglobin A1C, POC 9.3 4.0 - 5.6 % Blood 02/04/2025 1:10 PM CDT Annamaria Solis CDL INSTRUCTOR POINT OF CARE TEST ORDERA BLES Final Result * (ABNORMAL) Comprehensive metabolic panel (11/27/2024 12:00 AM DATE PULLER) Pathologist [facility] SCRIBED Sodium 138 135 - 146 mmol/L [...] 35 Units/L [facility] SCRIBED eGFR in NonAfrican Moroccan 78 >=60 - NA [facility] Blood 11/27/2024 Historical Provider LAB BLOOD ORDERABLES Edit ed Result - Final [facility] * PSA, total Blood (06/14/2022) Pathologist [facility] SCRIBED PSA, Total 0.33 NA - NA [facility] Blood 06/14/2022 us Historical Provider LAB BLOOD ORDERABLES Edit ed Result - Final [facility] [address] [phone] from Last 3 Months or Most Recently Relevant to Health Maintenance Insurance [facility] MEDICARE ADVANTAGE [facility] MEDICARE ADVANTAGE Care Teams Lab[address] Relationship Specialty Start Date End Date Sven Stoddard MD PCP - General 01/18/17
--- OUTSIDE RECORDS SUMMARY | 2025-05-19 10:02 | XMS_ITS | Continuity of Care Document ---
Author Organization [facility] Address [address] [place] [address] Phone Care Team Providers Care Director Of Marketing Communications Name Role Phone Jung OD, Naldo Unavailable Unavailable Procedures Procedure Date Eye Exam & Treatment Refraction Eye Exam & Treatment Post-op Follow-up Visit Post-op Follow-up Visit Post-op Follow-up Visit BF Plastic Sphcyl [place] To +/-4d .12-2d Vision Svcs Frames Purchases [...] Diagnoses Date Provider Providers Copied on Encounter [facility], [address], [place], [place], [id number], [place] tel:[phone] [facility] No Information Oct-2 6-201 0 Jung OD Naldo. [address] , [address], [place], [address], [place]. tel:[phone] [facility], [address] [place] [address] [address], [place], [place], [id number], [place] tel:[phone] [facility] [place] No Information Jul-2 7-200 9 Jung OD Naldo. [address] [place] [address] , [address], [place], [address], [place]. tel:[phone] [facility], [address] [place] [address] [address], [place], [place], [id number], [place] tel:[phone] [facility] [place] No Information Charly-2 1-200 9 Jung OD Naldo. [address] [place] [address] , [address], [place], [address], [place]. tel:[phone] [facility], [address] [place] [address] [address], [place], [place], [id number], [place] tel:[phone] [facility] [place] No Information Oct-0 7-200 9 Jung OD Naldo. [address] [place] [address] [address] , [address], [place], [address], [place]. tel:[phone] [facility], [address] [place] [address] [address], [place], [place], [id number], [place] tel:[phone] SEC [facility] No Information Dec-3 1-200 8 Jung OD Naldo. [address] [place] [address] [address] , [address], [place], [address], [place]. tel:[phone] [facility], [address] [place] [address] [address], [place], [place], [id number], [place] tel:[phone] SEC [facility] No Information Dec-3 1-200 8 [employer] . [address] [facility], [address], [place], [place], [id number], [place]. tel:[phone] Referring Provider: Naldo Jung OD A, [address] [place], [place] [address]ate Center [address], [place], [address]. tel:[phone] sulting Provider: Jamil Smith, [address], [place], [place], [facility]. tel:[phone] [facility], [address], [place], [place], [id number], [place] tel:[phone] SEC [facility] No Information Dec-1 7-200 8 Alexsander Billings. [address] [place], [place] [address]ate Center , [address], [place], [place], [facility], [place]. tel:[phone] [facility], [address], [place], [place], [id number], [place] tel:[phone] [facility] No Information Dec-1 6-200 8 Alexsander Billings. [address] [place], [place] [address] [place] , [address], [place], [place], [facility], . tel:[phone] [facility], [address] [place] [address] [address], [place], [place], [id number], [place] tel:[phone] [facility] No Information Nov-2 6-200 8 Alexsander Billings. [address] [place], [place] [address] [place] , [address], [place], [place], [facility] [place], [place]. tel:[phone] Referring Provider: Manuelito Lion, [address] [place], [place] [address]ate [address], [place], [place], [facility] [place]. tel:[phone] [facility], [address], [place], [place], [id number], [place] tel:[phone] [facility] No Information Nov-1 2-200 8 Alexsander Billings. [address] [place], [place] [address] [place] , [address], [place], [facility] [place], [place]. tel:[phone] [facility], [address], [place], [place], [id number], [place] tel:[phone] [facility] No Information Nov-1 1-200 8 Alexsander Billings. [address] [facility] [address] , [address], [place], [address], . tel:[phone] [facility], [address] [place] [address] [address], [place], [place], [id number], tel:[phone] [facility] No Information 3 200 8 Alexsander Billings. [address] [place], [place] [address]ate Center , [address], [place], [place], [facility] [place], . tel:[phone] Referring Provider: Naldo Lion, [address] [place], [place] [address], [place], [place], [facility] [place] [place]. tel:[phone] [facility], [address] [place] [address] [address], [place], [place], [id number], tel:[phone] [facility] [place] No Information 8 Jung OD Naldo. [address] [place] [address] [address] , [address], [place], [address], . tel:[phone] Family History Family Member Type Diagnosis Age At Onset No Information Payers Payer name Insurance type Covered republican ID Authoriza tion(s) No Information Social History [...]
[2025-05-19 10:06] LABS: Add Urine Microscopic? YES; Appearance Urine Clear (Clear); Glucose Urine UA Negative (Negative); Leukocyte Esterase Ur 1+ LEU/UL (Negative); Need Manual Microscopic Reviewed; Nitrate Urine Negative (Negative); Non Pathogenic Casts 0-2; Specific Grav Ur 1.010 (1.001-1.035)
[2025-05-19 10:24] LABS: Alanine Aminotransferase 37 U/L (6-50); Albumin Level 4.4 g/dL (3.5-5.1); Alkaline Phosphatase 58 U/L (38-126); Anion Gap 9 mmol/L (4-12); Aspartate Amino Transferase 40 U/L (17-59); Bilirubin,Total 0.3 mg/dL (0.2-1.3); Blood Urea Nitrogen 29 mg/dL (9-20); Calcium 9.8 mg/dL (8.4-10.2); Carbon Dioxide 26 mmol/L (22-30); Chloride 99 mmol/L (98-107); Estimated CRCL calculation 74 ml/min; Estimated Glomerular Filt Rate > 60; Glucose 166 mg/dL (65-110); Magnesium 2.2 mg/dL (1.6-2.3); Potassium 4.3 mmol/L (3.4-5.0); Sodium 134 mmol/L (137-145); Total Protein 8.3 g/dL (6.3-8.2)
[2025-05-19] MEDS: SODIUM CHLORIDE 0.9% IV 1,000 ML 150 ML IV CONT (10:42)
[2025-05-19] MEDS: cefTRIAXone 1 GM in SODIUM CHLORIDE 0.9% IV 50 ML 100 ML IVPB (11:38)
== END 2025-05-19 12:58 | disposition home or self-care (01) ==
PROVIDERS: Emergency Medicine; Emergency Provider Nurse Practitioner Family; PCP Internal Medicine
DX: N30.00 Acute cystitis without hematuria (principal); R53.1 Weakness; I10 Essential (primary) hypertension; E11.9 Type 2 diabetes mellitus without complications; J44.9 Chronic obstructive pulmonary disease, unspecified; G47.30 Sleep apnea, unspecified; Z87.891 Personal history of nicotine dependence; Z79.84 Long term (current) use of oral hypoglycemic drugs; Z79.899 Other long term (current) drug therapy; Z79.85 Long-term (current) use of injectable non-insulin antidiabetic drugs; Z79.4 Long term (current) use of insulin
CPT/HCPCS: 36415; 51702; 70450; 71046; 80053; 81001; 83735; 85025; 87086; 93005; 96361; 96365; 99284; J0696; J7030

== ENCOUNTER 2025-06-16 16:22 | Outpatient (CLI) | payer MEDICARE, SELFPAY ==
--- OUTSIDE RECORDS SUMMARY | 2010-08-15 08:00 | XMS_ITS | Continuity of Care Document ---
Author Organization [facility] [place] Address [address] [place] [address] Phone Care Team Providers Care Striker Out Name Role Phone Jung OD, Naldo Unavailable Unavailable Procedures Procedure Date Eye Exam & Treatment Refraction Eye Exam & Treatment Post-op Follow-up Visit Post-op Follow-up Visit Post-op Follow-up Visit BF Plastic Sphcyl Crowley To +/-4d .12-2d Vision Svcs Frames Purchases Tax - Medical Post-op Follow-up Visit Remove Cataract, Insert Lens Post-op Follow-up Visit Echo Exam Of Eye-Professional 8 Post-op Follow-up Visit Remove Cataract, Insert Lens Eye Exam Established Pt Echo Exam Of Eye Eye Exam, New Patient Refraction Advance Directives Directive Yes / No Effective Date File Name No Information Encounters Encounter Description Practice Location Reason(s) For Visit Diagnoses Date Provider Providers Copied on Encounter [facility], [address], [place], [place], [id number], [place] tel:[phone] SEC [facility] No Information Oct-2 6-201 0 Jung OD Naldo. [address] , [address], [place], [address], [place]. tel:[phone] [facility], [address] [place] [address] [address], [place], [place], [id number], [place] tel:[phone] [facility] No Information Jul-2 7-200 9 Jung OD Naldo. [address] [place] [address] , [address], [place], [address], [place]. tel:[phone] [facility], [address] [place] [address] [address], [place], [place], [id number], [place] tel:[phone] [facility] [place] No Information Charly-2 1-200 9 Jung OD Naldo. [address] [place] [address] , [address], [place], [address], [place]. tel:[phone] [facility], [address] [place] [address] [address], [place], [place], [id number], [place] tel:[phone] [facility] [place] No Information Oct-0 7-200 9 Jung OD Naldo. [address] [place] [address] Center , [address], [place], [address], [place]. tel:[phone] [facility], [address] [place] [address] [address], [place], [place], [id number], [place] tel:[phone] [facility] No Information Dec-3 1-200 8 Jung OD Naldo. [address] [place] [address] [address] , [address], [place], [address], [place]. tel:[phone] [facility], [address] [place] [address] [address], [place], [place], [id number], [place] tel:[phone] [facility] No Information Dec-3 1-200 8 [facility] [employer] . [address] [facility], [address], [place], [place], [address], [place]. tel:[phone] Referring Provider: Naldo Jung OD A, [address] [place], [place] [address]ate [address], [place], [address]. tel:[phone] sulting Provider: Jamil Smith, [address], [place], [place], [facility][note 3]. tel:[phone] [facility], [address], [place], [place], [id number], [place] tel:[phone] SEC [facility] No Information Dec-1 7-200 8 Alexsander Billings. [address] [place], [place] [address]ate Center , [address], [place], [place], [facility][note 3], [place]. tel:[phone] [facility], [address], [place], [place], [id number], [place] tel:[phone] [facility] No Information Dec-1 6-200 8 Alexsander Billings. [address] [place], [place] [address] [place] , [address], [place], [place], [facility][note 3], . tel:[phone] [facility], [address] [place] [address] [address], [place], [place], [address], [place] tel:[phone] [facility] No Information Nov-2 6-200 8 Alexsander Billings. [address] [place], [place] [address]ate [place] , [address], [place], [place], [facility][note 3], [place]. tel:[phone] Referring Provider: Manuelito Lion, [address] [place], [place] [address]ate [address], [place], [place], [facility][note 3]. tel:[phone] [facility], [address], [place], [place], [id number], [place] tel:[phone] [facility] No Information Nov-1 2-200 8 Alexsander Billings. [address] [place], [place] [address] [place] , [address], [place], [place], [facility][note 3], [place]. tel:[phone] [facility], [address], [place], [place], [id number], [place] tel:[phone] [facility] No Information Nov-1 1-200 8 Alexsander Billings. [address] [facility] [address] , [address], [place], [place], [facility][note 3], . tel:[phone] [facility], [address] [place] [address] [address], [place], [place], [id number], tel:[phone] [facility] No Information 3 200 8 Alexsander Billings. [address] [place], [place] [address]ate Center , [address], [place], [facility][note 3], . tel:[phone] Referring Provider: Naldo Lion, [address] [place], [place] [address]ate [place] [address], [place], [place], [facility][note 3]. tel:[phone] [facility], [address] [place] [address] [address], [place], [place], [id number], tel:[phone] [facility] [place] No Information 8 Jung OD Naldo. [address] [place] [address] Center , [address], [place], [address], . tel:[phone] Family History Family Member Type Diagnosis Age At Onset No Information Payers Payer name Insurance type Covered alliance party ID Authoriza tion(s) No Information Social History Type Description Quantity Date Captured Comments Sex Male Smoking Status No Information Chief Complaint And Reason For Visit No Information Reason For Referral Reason For Referral No Information History Of Present Illness Encounter Date Complaint History Of Prese nt Illness No Information Functional Status Date Functional Assessmen t No Information Instructions Date Instruction Additional Infor mation No Information Assessments Type Assessment Date No Information Patient Care Teams Name Effective Dates (start - stop) Status Members No Information
--- NOTE | ~2025-06-16 | CT_ITS ---
EXAMINATION: CT abdomen pelvis wo con, 06/16/2025 16:40 CDT HISTORY: Urinary retention COMPARISON: No comparisons available. TECHNIQUE: CT scan of the abdomen and pelvis was performed without IV contrast. One or more of the following dose reduction techniques were used: automated exposure control, adjustment of the mA and/or kV according to patient size, use of iterative reconstruction technique. Unless otherwise stated, incidental findings do not require dedicated follow up imaging FINDINGS: CT abdomen: LUNG BASES: Lung bases demonstrate chronic changes related calcified granuloma. LIVER: Punctate calcified liver granulomas. The liver appears enlarged. SPLEEN: Punctate calcified splenic granulomas.. KIDNEYS: Right Kidney: Unremarkable. No calculi. No hydronephrosis. Left Kidney: Left kidney midpole subcentimeter probable calcified cyst. Left kidney midpole simple cyst 1 x 1 cm. ADRENAL GLANDS: Unremarkable. PANCREAS: Unremarkable. GALLBLADDER/BILIARY: Unremarkable. No biliary dilatation. STOMACH AND ESOPHAGUS: Visualized stomach and esophagus within normal limits. BOWEL/MESENTERY: Moderate fecal content, mild diverticulosis, no colitis or diverticulitis. Appendix normal. Mesentery normal. Small bowel appears normal. ADENOPATHY/RETROPERITONEUM: No lymphadenopathy. AORTA/VASCULATURE: Normal caliber aorta. FREE FLUID OR FREE AIR: No free fluid.. CT pelvis: SOLID ORGANS/REPRODUCTIVE: Unremarkable. BLADDER: Circumferential thickening of the bladder wall with minimal perivesicular stranding. OSSEOUS STRUCTURES: Grade 1 anterolisthesis of L5 on S1 with moderate degenerative changes in the lumbar spine. OVERLYING SOFT TISSUES: Unremarkable. IMPRESSION: 1. Probable cystitis. Incidental findings above Reviewed, dictated and finalized at location A.
--- OUTSIDE RECORDS SUMMARY | 2025-06-16 16:27 | XMS_ITS | Clinical Summary ---
Author Organization [facility] [place] [address] Address [address] [place] [address] Care Team Providers Care [employer] Name Role Phone Sven Stoddard MD Primary Care Provider Allergies Active Allergy Reactions Criticality Noted Date Comments Cephalexin Rash,Hives Medium 01/09/2018 Metformin Diarrhea High 11/26/2023 Tramadol Rash,Hives Medium 01/09/[address] (VOLTAREN) 75 mg EC tablet take 1 tablet by oral route 2 times every day 0 0 06/21/20 15 Active cholecalcifero l (VITAMIN D3) 2,000 unit capsule take one by oral route one time every day 0 0 06/21/20 15 Active lisinopril (PRINIVIL,ZEST RIL) 40 mg tablet take 1 tablet (40MG) by oral route every day 0 02/25/20 13 Active omega-3 fatty acids (FISH OIL CONCENTRATE) 1,000 mg capsule 1 tablet tid 0 0 04/22/20 13 Active PROAIR HFA 90 mcg/actuation inhaler Inhale 2 puffs every 4 (four) hours as needed 0 09/25/20 17 Active simvastatin (ZOCOR) 40 mg tablet Take 1 tablet (40 mg total) by mouth daily 0 10/08/20 17 Active mometasone-for moterol (DULERA 100) 100-5 mcg/actuation inhaler Inhale 2 puffs 2 (two) times a day Rinse mouth with water after use to reduce aftertaste and incidence of candidiasis. Do not swallow. Active fenofibrate choline (TRILIPIX) 135 mg capsule TK ONE C PO QD 1 09/29/20 18 Active ergocalciferol (VITAMIN D) 50,000 unit capsule Take 1 capsule (50,000 Units total) by mouth 09/26/20 23 Active fenofibrate micronized (LOFIBRA) 134 mg capsule Take by mouth daily 11/13/19 24 Active hydroCHLOROthi azide (HYDRODIURIL) 25 mg tablet Take 1 tablet (25 mg total) by mouth every morning 10/15/20 23 Active insulin lispro (HumaLOG, ADMELOG) 100 unit/mL pen for injectionIndic ations:Type 2 diabetes mellitus with hyperglycemia, with long-term current use of insulin ([facility]) 65 units before breakfast & lunch, 75 before dinner 150 mL 3 05/12/20 24 Active glipiZIDE XL (GLUCOTROL XL) 5 mg 24 hr tabletIndicati ons:type 2 diabetes mellitus Take 1 tablet (5 mg total) by mouth 2 (two) times a day before breakfast and dinner 180 tablet 3 10/26/19 25 026 Active insulin aspart (NovoLOG) 100 unit/mL (3 mL) pen for injectionIndic ations:Type 2 diabetes mellitus with hyperglycemia, with long-term current use of insulin ([facility]) 65 units before breakfast & lunch, 75 before dinner 150 mL 3 10/26/19 25 Active insulin degludec (TRESIBA) 200 unit/mL (3 mL) pen for injectionIndic ations:Type 2 diabetes mellitus with hyperglycemia, with long-term current use of insulin ([facility]) Inject 1 mL (200 Units total) under the skin daily 90 mL 3 10/26/19 25 026 Active Vascepa 1 gram capsule TAKE 2 CAPSULES(2 GRAMS) BY MOUTH TWICE DAILY 120 capsule 3 10/27/19 25 Active empagliflozin (JARDIANCE) 25 mg tabletIndicati ons:Type 2 diabetes mellitus with hyperglycemia, with long-term current use of insulin ([facility]) Take 1 tablet (25 mg total) by mouth daily 90 tablet 3 11/09/19 25 026 Active omega-3 fatty acids (LOVAZA) 1 gram capsuleIndicat ions:Hyperlipi demia associated with type 2 diabetes mellitus (HCC) Take 2 capsules (2 g total) by mouth 2 (two) times a day 360 capsule 3 11/09/19 25 026 Active pen needle, diabetic (BD Ultra-Fine Short Pen Needle) 31 gauge x 5/16 needleIndicati ons:Type 2 diabetes mellitus with hyperglycemia, with long-term current use of insulin ([facility]) USE DIRECTED FOUR TIMES DAILY 400 each 2 01/05/20 25 Active Farxiga 10 mg tablet Take 1 tablet (10 mg total) by mouth daily Active rOPINIRole (REQUIP) 2 mg tablet 02/02/20 25 Active semaglutide (Ozempic) 0.25 mg or 0.5 mg (2 mg/3 mL) pen injector injectionIndic ations:Type 2 diabetes mellitus with hyperglycemia, with long-term current use of insulin ([facility]) INJECT 0.5 MG UNDER THE SKIN ONCE A WEEK 9 mL 1 03/01/20 25 Active blood-glucose meter (Accu-Chek Guide Me Glucose Mtr) miscIndication s:Type 2 diabetes mellitus with hyperglycemia, with long-term current use of insulin ([facility]) Use to check blood sugars 1 each 05/26/20 25 Active blood glucose diagnostic (Accu-Chek Guide test strips) stripIndicatio ns:Type 2 diabetes mellitus with hyperglycemia, with long-term current use of insulin ([facility]) Check blood sugar three times daily 200 strip 3 05/26/20 25 Active Accu-Chek FastClix Lancing Dev kitIndications :Type 2 diabetes mellitus with hyperglycemia, with long-term current use of insulin ([facility]) Check blood sugar 3 times daily 1 kit 06/01/20 25 Active Accu-Chek Softclix Lancets lancetsIndicat ions:Type 2 diabetes mellitus with hyperglycemia, with long-term current use of insulin ([facility]) Check blood sugar 3 times daily 300 each 3 06/01/20 25 Active OneTouch Verio Flex meter miscIndication s:Type 2 diabetes mellitus with hyperglycemia, with long-term current use of insulin ([facility]) Check blood sugars twice daily 1 each 02/05/20 25 025 Discontinued(Th erapy completed) lancets 30 gauge miscIndication s:Type 2 diabetes mellitus with hyperglycemia, with long-term current use of insulin ([facility]) Check blood sugar twice daily 200 each 3 02/05/20 25 025 Discontinued OneTouch Verio test strips stripIndicatio ns:Type 2 diabetes mellitus with hyperglycemia, with long-term current use of insulin ([facility]) Check blood sugar three times daily 300 strip 3 03/26/20 25 025 Discontinued(Th erapy completed) Active Problems Problem Noted Date Diagnosed Date Numbness and tingling in right hand 11/26/2023 Assessment & Plan (11/26/2023 3:51 PM CODING TEAM LEAD): Probably DN Will have him see neurology, Dr Mcmanus Hyperlipidemia associated with type 2 diabetes prosper chapa 04/17/2018 Assessment & Plan (02/04/2025 1:01 PM CDT): Chronic problem. Not at goal on current Simvastatin 40mg, lovaza 2gm bid, fenofibrate 135mg daily. Last lipid panel: 12/05/23 LDL=86, KP=897. Will update labs. Verified that he uses [facility]. Aware to check results/results letter in [facility]. Will contact by phone if needed. Assessment & Plan (10/26/2024 3:30 PM CODING TEAM LEAD): Chronic unknown status Continue statin and Vascepa, Patient is getting some blood work that has been ordered by PCP Assessment & Plan (11/26/2023 3:49 PM CODING TEAM LEAD): With elevated TG Diet and exercise Low carb low fat diet Continue statin and Vascepa, Update lipid profile Assessment & Plan (05/07/2023 3:22 PM CDT): Uncontrolled hypertriglyceridemia Low fat low carb diet emphasized Continue pravastatin , vascepa and fenofibrate Assessment & Plan (11/20/2022 4:30 PM CODING TEAM LEAD): Uncontrolled, with significant hypertriglyceridemia Importance of diet and exercise was explained Continue current regimen including atorvastatin, fenofibrate and Vascepa Assessment & Plan (03/13/2022 3:50 PM CDT): Chronic, well controlled Low fat Low cholesterol diet Exercise Continue statin therapy with Simvastatin Assessment & Plan (09/05/2021 3:44 PM CODING TEAM LEAD): Low chol low fat diet Exercise Continue Fenofibrate, Simvastatin Assessment & Plan (11/15/2020 3:55 PM CODING TEAM LEAD): Goal of treatment , LDL cholesterol less [...] therapy Assessment & Plan (08/25/2020 3:17 PM CODING TEAM LEAD): Continue statin, fibrate and omega 3. Would [...] therapy Assessment & Plan (09/03/2019 3:41 PM CODING TEAM LEAD): Goal of treatment , LDL cholesterol less [...] 04/02/2017 Assessment & Plan (08/25/2020 3:16 PM CODING TEAM LEAD): Wt is continuing to increase with lack of attention to diet and exercise. Reminded to decreasing snacking and ice cream. Assessment & Plan (05/19/2020 3:28 PM CDT): Importance of following diet and exercising discussed. Morbid obesity with BMI of 40.0-44.9, adult 03/21 Assessment & Plan (10/26/2024 3:31 PM CODING TEAM LEAD): Counseled on diet and exercise Assessment & Plan (05/07/2019 3:23 PM CDT): Diet and exercise were discussed Assessment & Plan (01/15/2018 2:16 PM CDT): Importance of following diet and exercising discussed. Assessment & Plan (10/10/2017 4:14 PM CODING TEAM LEAD): Continue diet and weight loss efforts with [...] mychart. Aware to check results/results letter in [facility]. Will contact by phone if needed. Assessment & Plan (10/26/2024 3:30 PM CODING TEAM LEAD): Chronic, well controlled Continue Lisinopril Assessment & Plan (11/26/2023 3:50 PM CODING TEAM LEAD): Chronic, well controlled Continue Lisinopril Update MA Assessment & Plan (05/07/2023 3:21 PM CDT): Chronic, well controlled Continue Lisinopril Update GFR Assessment & Plan (11/20/2022 4:30 PM CODING TEAM LEAD): Chronic, well-controlled Continue current regimen including lisinopril Assessment & Plan (07/17/2022 3:38 PM CDT): Well controlled Continue current meds Check MA Assessment & Plan (03/13/2022 3:50 PM CDT): Chronic, well controlled Continue current meds Assessment & Plan (09/05/2021 3:44 PM CODING TEAM LEAD): Goal blood pressure is less than 140/85 [...] Lisinopril Assessment & Plan (11/15/2020 3:55 PM CODING TEAM LEAD): Goal blood pressure is less than 140/85 Low salt diet was discussed andd recommended The importance of daily aerobic exercise was also emphasized. Continue current meds, including ZURI-I or ARB, e.g. Check microalbumin Assessment & Plan (08/25/2020 3:17 PM CODING TEAM LEAD): Controlled on current medications. Continue plan. Assessment & Plan (05/19/2020 3:29 PM CDT): Controlled on current medications. Continue plan. Assessment & Plan (01/07/2020 3:24 PM CDT): Goal blood pressure is less than 140/85 Low salt diet recommended Daily aerobic exercise Continue current meds, including ZURI-I or ARB with Lisinopril Assessment & Plan (09/03/2019 3:42 PM CODING TEAM LEAD): Goal blood pressure is less than 140/85 Low salt diet recommended Daily aerobic exercise Continue current meds, including ZURI-I or ARB with Lisinopril Assessment & Plan (10/07/2018 3:51 PM CODING TEAM LEAD): Goal blood pressure is less than 140/85 [...] medications. Assessment & Plan (10/10/2017 4:14 PM CODING TEAM LEAD): Controlled on current medications. Assessment & Plan [...] eye exam (05/06/24 no DMR [facility] [place]) Will update labs. Verified that he uses [facility]. Aware to check results/results letter in [facility]. Will contact by phone if needed. Discussed [...] infection. Assessment & Plan (10/26/2024 3:30 PM CODING TEAM LEAD): Chronic, uncontrolled, worsening Recheck hemoglobin A1c As [...] months Assessment & Plan (11/26/2023 3:48 PM CODING TEAM LEAD): Hba1c was Lab Results Component Value Date [...] regimen Assessment & Plan (11/20/2022 4:31 PM CODING TEAM LEAD): Chronic, uncontrolled but with some mild improvement [...] Tradjenta Assessment & Plan (09/05/2021 3:43 PM CODING TEAM LEAD): Hba1c was Lab Results Component Value Date [...] Bydureon Assessment & Plan (11/15/2020 3:55 PM CODING TEAM LEAD): Hba1c was Lab Results Component Value Date [...] CGM Assessment & Plan (08/25/2020 3:26 PM CODING TEAM LEAD): A1c 7.6. Pt with low health literacy. [...] dose: Assessment & Plan (09/03/2019 3:41 PM CODING TEAM LEAD): Your Hba1c today was: Lab Results Component Value Date HGBA1C 7.8 % 09/03/2019 meaning a 3 month average sugar of : 174 Your goal hba1c is under 7.0 to prevent oil heaterman diabetes complications ( eye , kidney and [...] goal hba1c is under 7.0 to prevent oil heaterman diabetes complications ( eye , kidney and [...] dose Assessment & Plan (10/07/2018 3:51 PM CODING TEAM LEAD): Hba1c was Lab Results Component Value Date [...] hypoglycemia. Assessment & Plan (10/10/2017 4:22 PM CODING TEAM LEAD): A1c 7.0 with rare lows. No change to current medication plan. Continue with weight loss efforts. Discuss improved A1c with red hat open stack administrator to see if it is appropriate to [...] Encounters Date Type Department Care Team Description 06/01/2025 Orders Only [facility] Diabetes and Endocrinology [address] [place] [phone] Annamaria Solis, EMAMNUEL Type 2 diabetes mellitus with hyperglycemia, with long-term current use of insulin (HCC) (Primary Dx) 05/26/2025 Telephone [facility] Diabetes and Endocrinology [address] [place] [phone] Annamaria Solis, EMMANUEL Med Refill 04/19/2025 Telephone [facility] [address] [phone] Shandra Reid MD 04/06/2025 Orders Only [facility] Diabetes [facility] Endocrinology [address] [place] [phone] Gill Pepper MD 03/19/2025 Telephone [facility] [address] [phone] Annamaria Solis BRIM SETTER from Last 3 Months Immunizations Immunization Administration [...] on file Legal Sex Male 2:43 AM CODING TEAM LEAD Gender Identity Male 11/20/2021 5:50 PM CODING TEAM LEAD Sexual Orientation Straight 11/20/2021 5: 50 PM CODING TEAM LEAD Obstetrics History Last Filed Vital Signs Vital [...] Cancer Screening-PSA 06/14/2024 06/14/2022, 07/25/2017 Covid-19 Vaccine ( - 2023-2 5 season) 2024 08/13/2021, 07/30/2021, 01/03/2021, Additional history exists Abdominal Aortic Aneurysm (A AA) Screen 2024 Well Visit 65+ 2024 Influenza Vaccine (#1) 2025 , 08/19/2023, 07/20/2021, Additional history exists Hemoglobin A1C 08/06/2025 02/04/2025, 02/0 04/2025, 11/27/2024, Additional history exists eGFR 11/27/2025 11/27/2024, 08/, 03/13/2022, Additional history exists Foot Exam 02/04/2026 02/04/2025, 04/20, 03/13/2022, Additional history exists Albumin Creatinine Ratio, Urine 02/26/2026 02/26/2025, 11/04/2024, 12/05/2023, Additional history exists Lipid Panel 02/26/2026 02/26/2025, 021 02/2024, 06/14/2022, Additional history exists Dilated Eye Exam 03/31/2026 03/31/2025, , 04/16/2023, Additional history exists Procedures Procedure Name Priority Date/Time Associated Diagnosis Comments HM DIABETES EYE EXAM Routine 03/31/2025 8:28 AM CDT LIPID PANEL Routine 02/26/2025 10:44 AM CDT ALBUMIN CREATININE RATIO, URINE Routine 02/26/2025 10:44 AM CDT POCT HEMOGLOBIN A1C Routine 02/04/2025 1 :10 PM CDT Type 2 diabetes mellitus with hyperglycemia, with long-term current use of insulin (HCC) COMPREHENSIVE METABOLIC PANEL Routine 11/27/2024 12:00 AM CODING TEAM LEAD PSA, TOTAL Routine 06/14/2022 from Last 3 [...] NP LAB URINE ORDERABLES Rosibel l Result [facility] [address] [place] [phone] * (ABNORMAL) Lipid panel (02/26/2025 10:44 AM CDT) Cholesterol 162 <200 mg/dL [facility] HDL 29(L) > OR = 40 mg/dL [facility] Triglycerides 423(H) <150 mg/dL [facility] Comment: If a non-fasting specimen was collected, consider repeat triglyceride testing on a fasting specimen if clinically indicated. Taj et al. J. of Clin. Lipidol. 2015;9:129-169. LDL mg/dL (calc) [facility] Comment: LDL cholesterol not calculated. Triglyceride levels greater than 400 mg/dL invalidate calculated LDL results. Reference range: <100 Desirable range <100 mg/dL for primary prevention; <70 mg/dL for patients with CHD or diabetic patients with > or = 2 CHD risk factors. LDL-C is now calculated using the Enrique calculation, which is a validated novel method providing better accuracy than the Friedewald equation in the estimation of LDL-C. Clovis SS et al. RAUL. 2013;310(19): 8023-8000 (http://education.InterEx/faq/UVQ117) Chol/HDL ratio 5.6(H) <5.0 (calc) [facility] Non-HDL, (LDL+VLDL) 133(H) <130 mg/dL (calc) [facility] Comment: For patients with diabetes plus 1 major ASCVD risk factor, treating to a non-HDL-C goal of <100 mg/dL (LDL-C of <70 mg/dL) is considered a therapeutic option. 02/26/2025 10:4 4 AM CDT 02/26/2025 10:45 AM CDT Narrative [facility] - 02/27/2025 3:21 AM CDT FASTING:YES FASTING: YES Annamaria Solis NP LAB BLOOD ORDERABLES Rosibel l [facility] [address] [place] [address] * (ABNORMAL) POCT hemoglobin A1c (02/04/2025 1:10 PM CDT) Hemoglobin A1C, POC 9.3 4.0 - 5.6 % Blood 02/04/2025 1:10 PM CDT us Annamaria Solis NP POINT OF CARE TEST ORDERA BLES Final Result * (ABNORMAL) Comprehensive metabolic panel (11/27/2024 12:00 AM CODING TEAM LEAD) SCRIBED Sodium 138 135 - 146 mmol/L [...] 35 Units/L [facility] SCRIBED eGFR in NonAfrican Irish 78 >=60 - NA [facility] Blood 11/27/2024 Historical Provider LAB BLOOD ORDERABLES Edit ed Result - Final [facility] * PSA, total Blood (06/14/2022) Pathologist [facility] [place] SCRIBED PSA, Total 0.33 NA - NA [facility] Blood 06/14/2022 Historical Provider LAB BLOOD ORDERABLES Edit ed Result - Final [facility] [address] [place] [address], [facility] [phone] from Last 3 Months or Most Recently Relevant to Health Maintenance Insurance [facility] [place] [address] [facility] [employer] Care Teams [employer] Relationship Specialty Start Date End Date Sevn Stoddard MD PCP - General 01/18/17
== END 2025-06-16 16:23 | disposition home or self-care (01) ==
PROVIDERS: PCP Internal Medicine; Visit Provider Urology
DX: R93.5 Abnormal findings on diagnostic imaging of other abdominal regions, including retroperitoneum (principal); R33.9 Retention of urine, unspecified
CPT/HCPCS: 74176